=== PATIENT | female | born 1940 | race Caucasian/White ===

== ENCOUNTER → 2016-05-04 | Outpatient (REF) | payer OTHER ==
[2016-05-04 18:12] LABS: BASO # 0.1 K/mm3 (0.0-0.2); BASO % 0.9 % (0.0-1.0); EOS % 0.7 % (0.0-3.0); LARGE UNSTAINED CELL # 0.1 K/mm3 (0.0-0.4); LARGE UNSTAINED CELL % 1.1 % (0.0-4.0); LYMPH # 1.7 K/mm3 (1.5-4.5); LYMPH % 20.6 % (24.0-44.0); MEAN CORPUSCULAR HEMOGLOBIN 29.2 pg (27.0-33.0); MEAN CORPUSCULAR HGB CONC 32.9 g/dl (32.0-36.5); MEAN CORPUSCULAR VOLUME 88.7 fl (80.0-96.0); MONO # 0.3 K/mm3 (0.0-0.8); MONO % 3.3 % (0.0-5.0); NEUTROPHILS # 5.7 K/mm3 (1.8-7.7); NEUTROPHILS % 73.5 % (36.0-66.0); PLATELET COUNT, AUTOMATED 311 k/mm3 (150-450); WHITE BLOOD COUNT 7.7 K/mm3 (4.0-10.0)
[2016-05-04 18:32] LABS: FOLATE 22.3 NG/ML (>5.4)
[2016-05-04 18:44] LABS: ALBUMIN 4.4 GM/DL (3.2-5.2); ALBUMIN/GLOBULIN RATIO 1.29 (1.00-1.93); BILIRUBIN,TOTAL 0.5 MG/DL (0.2-1.0); CALCIUM LEVEL 9.5 MG/DL (8.8-10.2); CREATININE FOR GFR 1.01 MG/DL (0.55-1.02); GLOMERULAR FILTRATION RATE 56.9 (>39); POTASSIUM SERUM 4.2 MEQ/L (3.5-5.1); THYROXINE (T4) 8.8 UG/DL (4.5-12.0); TOTAL PROTEIN 7.8 GM/DL (6.4-8.2)
== END ==
LOC: M SFHCCLAY 11:52
PROVIDERS: ATTEND Family Medicine
DX: R42 Dizziness and giddiness (principal); R20.2 Paresthesia of skin
CPT/HCPCS: 80053; 82607; 82746; 84436; 84443; 85025; G0463

== ENCOUNTER → 2016-09-06 | Outpatient (REF) | payer OTHER ==
[2016-09-06 12:40] LABS: ALBUMIN 3.9 GM/DL (3.2-5.2); ALBUMIN/GLOBULIN RATIO 1.26 (1.00-1.93); ALKALINE PHOSPHATASE 67 U/L (45-117); ALT/SGPT 21 U/L (12-78); ANION GAP 8 MEQ/L (8-16); AST/SGOT 11 U/L (15-37); BILIRUBIN,TOTAL 0.4 MG/DL (0.2-1.0); BLOOD UREA NITROGEN 19 MG/DL (7-18); CALCIUM LEVEL 9.3 MG/DL (8.8-10.2); CARBON DIOXIDE LEVEL 27 MEQ/L (21-32); CHLORIDE LEVEL 104 MEQ/L (98-107); CREATININE FOR GFR 0.74 MG/DL (0.55-1.02); GLOMERULAR FILTRATION RATE > 60.0 (>39); GLUCOSE, FASTING 103 MG/DL (83-110); POTASSIUM SERUM 4.2 MEQ/L (3.5-5.1); SODIUM LEVEL 139 MEQ/L (136-145)
== END ==
LOC: M SFHCCLAY 09:21
PROVIDERS: ATTEND Family Medicine
DX: I10 Essential (primary) hypertension (principal)
CPT/HCPCS: 80053; G0463

== ENCOUNTER → 2016-11-01 | Outpatient (REF) | payer OTHER ==
[~2016-11-01] MED LIST: BENZ0.5T PO; CELE10TA PO; CITA10TA5 PO; FLUC10TA PO; FOLI1TAB4 PO; LOSA100T36; MACR100C43 PO; MIRT15TA3 PO; NITR100C2 PO; NYST50SS SS; OLAN5TAB PO; OXCA150T PO; OXCA300T PO; PATIENT COMMENT; PERP2TA PO; QUET5TAB PO; RISP1TAB3; RISP2TAB3 PO; ROZE8TAB16 PO; SERT-155; THIA100TA PO; TRAZ50TA11; VITMTA PO; ZOLP10TA2
[2016-11-01 11:43] LABS: BASO % 0.9 % (0.0-1.0); EOS # 0.1 K/mm3 (0.0-0.50); EOS % 1.5 % (0.0-3.0); LARGE UNSTAINED CELL # 0.1 K/mm3 (0.0-0.4); LARGE UNSTAINED CELL % 1.3 % (0.0-4.0); LYMPH # 1.2 K/mm3 (1.5-4.5); LYMPH % 19.9 % (24.0-44.0); MEAN CORPUSCULAR HEMOGLOBIN 28.9 pg (27.0-33.0); MEAN CORPUSCULAR HGB CONC 32.2 g/dl (32.0-36.5); MEAN CORPUSCULAR VOLUME 89.7 fl (80.0-96.0); MONO # 0.3 K/mm3 (0.0-0.8); MONO % 4.5 % (0.0-5.0); NEUTROPHILS # 4.2 K/mm3 (1.8-7.7); PLATELET COUNT, AUTOMATED 296 k/mm3 (150-450); RED CELL DISTRIBUTION WIDTH 12.9 % (11.5-14.5); WHITE BLOOD COUNT 5.8 K/mm3 (4.0-10.0)
[2016-11-01 12:12] LABS: ALBUMIN 3.6 GM/DL (3.2-5.2); ALBUMIN/GLOBULIN RATIO 1.24 (1.00-1.93); ALKALINE PHOSPHATASE 55 U/L (45-117); ALT/SGPT 21 U/L (12-78); ANION GAP 8 MEQ/L (8-16); AST/SGOT 10 U/L (15-37); BILIRUBIN,TOTAL 0.4 MG/DL (0.2-1.0); BLOOD UREA NITROGEN 21 MG/DL (7-18); CARBON DIOXIDE LEVEL 26 MEQ/L (21-32); CHLORIDE LEVEL 107 MEQ/L (98-107); CREATININE FOR GFR 0.87 MG/DL (0.55-1.02); GLOMERULAR FILTRATION RATE > 60.0 (>39); GLUCOSE, FASTING 93 MG/DL (83-110); SODIUM LEVEL 141 MEQ/L (136-145); THYROXINE (T4) 7.9 UG/DL (4.5-12.0); TOTAL PROTEIN 6.5 GM/DL (6.4-8.2)
== END ==
LOC: M SFHCCLAY 08:07
PROVIDERS: ATTEND Family Medicine
DX: I10 Essential (primary) hypertension (principal); R63.4 Abnormal weight loss

== ENCOUNTER 2016-11-19 15:03 | Emergency (ER) | payer OTHER ==
[~2016-11-19] VITALS: Ht 162.6 cm; Wt 83.9 kg
[2016-11-19] MEDS ORDERED: LOSA100T36 (15:21)
[2016-11-19] MEDS ORDERED: ROZE8TAB16 PO (15:21)
[2016-11-19] MEDS ORDERED: RISP1TAB3 (15:21)
[2016-11-19] MEDS ORDERED: ZOLP10TA2 (15:21)
[2016-11-19] MEDS ORDERED: SERT-155 (15:21)
[2016-11-19] MEDS ORDERED: TRAZ50TA11 (15:21)
[2016-11-19 15:57] LABS: MEAN CORPUSCULAR HEMOGLOBIN 30.2 pg (27.0-33.0); MEAN CORPUSCULAR HGB CONC 33.8 g/dl (32.0-36.5); MEAN CORPUSCULAR VOLUME 89.4 fl (80.0-96.0); RED CELL DISTRIBUTION WIDTH 12.9 % (11.5-14.5); WHITE BLOOD COUNT 9.9 K/mm3 (4.0-10.0)
[2016-11-19 16:18] LABS: METHADONE URINE NEGATIVE (NEGATIVE)
[2016-11-19 16:28] LABS: ALBUMIN/GLOBULIN RATIO 1.25 (1.00-1.93); ALKALINE PHOSPHATASE 64 U/L (45-117); ALT/SGPT 22 U/L (12-78); ANION GAP 8 MEQ/L (8-16); AST/SGOT 11 U/L (15-37); BILIRUBIN,DIRECT 0.1 MG/DL (0.0-0.2); BILIRUBIN,TOTAL 0.4 MG/DL (0.2-1.0); BLOOD UREA NITROGEN 28 MG/DL (7-18); CALCIUM LEVEL 9.6 MG/DL (8.8-10.2); CARBON DIOXIDE LEVEL 26 MEQ/L (21-32); CHLORIDE LEVEL 102 MEQ/L (98-107); CREATININE FOR GFR 0.91 MG/DL (0.55-1.02); GLOMERULAR FILTRATION RATE > 60.0 (>39); GLUCOSE, FASTING 105 MG/DL (83-110); POTASSIUM SERUM 4.3 MEQ/L (3.5-5.1); SODIUM LEVEL 136 MEQ/L (136-145); TOTAL PROTEIN 7.2 GM/DL (6.4-8.2)
[2016-11-19] MEDS ORDERED: RAMELTEON 8 MG TAB (ROZEREM) PO ONE (21:00)
[2016-11-19] MEDS ORDERED: SERTRALINE HCL 50 MG TAB PO ONE (21:00)
[2016-11-19] MEDS ORDERED: ALPRAZolam 0.25 MG TAB PO ONE (21:00)
[2016-11-19] MEDS ORDERED: RAMELTEON 8 MG TAB (ROZEREM) PO SCH (21:00)
[2016-11-19] MEDS ORDERED: GLYCERIN ADULT SUPP PR ONE (21:15)
--- NOTE | 2016-11-19 23:00 | REPUSA ---
CT of the head Clinical history: Headache. Technique: Multiple axial CT images were obtained through the head without administration of contrast . Findings: The ventricles and sulci are symmetric bilaterally. There is no evidence of acute hemorrhag e or infarct. There is no midline shift, mass effect, or extra-axial fluid collection. The osseous st ructures are unremarkable. The visualized paranasal sinuses and mastoid air cells are clear. Impression: Negative study.
[2016-11-20] MEDS ORDERED: ALPRAZolam 0.25 MG TAB PO ONE (05:15)
[2016-11-20] MEDS ORDERED: CIPROFLOXACIN 500 MG TAB PO ONE ×2 (06:00→20:00)
[2016-11-20] MEDS ORDERED: SERTRALINE HCL 50 MG TAB PO ONE (20:00)
[2016-11-20] MEDS ORDERED: RAMELTEON 8 MG TAB (ROZEREM) PO ONE (20:00)
--- NOTE | 2016-11-20 20:04 | ECGEPIP ---
Stationary ECG Study [facility] - ED Test Date: 2016-11-19 Pat Name: ISMAEL ALEJANDRA Department: Room: - Gender: F Continuous Process [employer]: ambrosio : 1940 Requested By: DYLAN HEBERT Order Number: [id number] Reading MD: Dee Lyle Measurements Intervals [place] Rate: 86 P: 54 NH: 166 QRS: 33 QRSD: 97 T: 17 QT: 353 QTc: 423 Interpretive Statements SINUS RHYTHM PROBABLE INFERIOR MYOCARDIAL INFARCTION, PROBABLY OLD WITH POSTERIOR EXTENSION NO PRIOR FOR COMPARISON Electronically Signed On 11-20-2016 20:03:55 EDT by Dee Lyle
[2016-11-21] MEDS ORDERED: CIPROFLOXACIN 500 MG TAB PO SCH (06:00)
[2016-11-21 12:58] VITALS: BP 156/90
[2017-02-12] MEDS ORDERED: NITR100C2 PO (15:06)
[2017-02-12] MEDS ORDERED: PATIENT COMMENT (15:08)
[2017-02-27] MEDS ORDERED: NYST50SS SS (11:28)
[2017-02-27] MEDS ORDERED: MACR100C43 PO (11:28)
[2017-02-27] MEDS ORDERED: BENZ0.5T PO (11:28)
[2017-02-27] MEDS ORDERED: PERP2TA PO (11:28)
[2017-02-27] MEDS ORDERED: CELE10TA PO (11:28)
[2017-03-04] MEDS ORDERED: FLUC10TA PO (11:44)
[2017-03-04] MEDS ORDERED: OLAN5TAB PO (11:44)
[2017-03-04] MEDS ORDERED: OXCA150T PO (11:44)
[2017-03-05] MEDS ORDERED: NYST50SS SS (16:11)
== END 2016-11-21 13:00 ==
LOC: M ED 15:03
DX: R45.851 Suicidal ideations (principal); F41.9 Anxiety disorder, unspecified; I10 Essential (primary) hypertension; Z90.79 Acquired absence of other genital organ(s); Z79.899 Other long term (current) drug therapy; Z88.0 Allergy status to penicillin; Z91.040 Latex allergy status
CPT/HCPCS: 36415; 70450; 80048; 80076; 80307; 81001; 84443; 85027; 87086; 93005; 99285; G0463; G0480

== ENCOUNTER → 2016-12-17 | Outpatient (REF) | payer OTHER | LOC: M SFHCCLAY 11:29 | PROVIDERS: ATTEND Family Medicine | DX: R82.90 Unspecified abnormal findings in urine (principal) ==

== ENCOUNTER 2017-01-13 08:05 | Inpatient (IN) | payer OTHER, MEDICARE ==
[~2017-01-13] VITALS: Ht 162.6 cm; Wt 79.0 kg
[~2017-01-13 08:05] MED LIST changes: -BENZ0.5T PO; -CELE10TA PO; -CITA10TA5 PO; -FLUC10TA PO; -FOLI1TAB4 PO; -MACR100C43 PO; -MIRT15TA3 PO; -NITR100C2 PO; -NYST50SS SS; -OLAN5TAB PO; -OXCA150T PO; -OXCA300T PO; -PATIENT COMMENT; -PERP2TA PO; -QUET5TAB PO; -RISP2TAB3 PO; -THIA100TA PO; -VITMTA PO
[2017-01-13] MEDS ORDERED: NS 1,000 ML IV SCH (08:18)
--- NOTE | 2017-01-13 08:57 | REP ---
CT brain without contrast: 01/13/2017. Clinical history: Altered mental status. Comparison: 11/19/2016. Technique. Soft-tissue and bone windows are obtained for each slice level. Findings: Lateral ventricles are midline. They are symmetric and mildly dilated proportionate to the diffuse cerebral atrophy. All of that is age appropriate and unchanged. Third and fourth ventricles are also appropriate for degree of mild atrophy. Basal ganglia are symmetric and grossly normal. There is some slight heterogeneity to the white matter bilaterally that may reflect some small vessel white matter change. The cortical stripe shows atrophy but is otherwise preserved. I do not see a vascular territory infarct, intracranial hemorrhage, mass, mass effect or edema. Brainstem and cerebellum show no acute finding. Basal cisterns intact. Mastoids and visualized sinuses are clear. Skull base and calvarium show no fracture or focal lesion. Impression: 1. Some mild cerebral atrophy with proportionate ventriculomegaly, unchanged. 2. Small vessel white matter changes, chronic and stable. 3. No acute infarct, hemorrhage, mass, mass effect or edema. Signed by Jose Del Cid MD 01/13/2017 10:23 A
[2017-01-13] MEDS: MULTIVITAMINS/MINERALS THERAP 1 TAB PO SCH (09:00)
[2017-01-13] MEDS: SENOKOT S TAB PO SCH ×2 (09:00→21:00)
[2017-01-13] MEDS: FOLIC ACID 1 MG TAB PO SCH (09:00)
[2017-01-13] MEDS: diphenhydrAMINE 50 MG CAP PO SCH ×2 (09:00→15:58)
--- NOTE | 2017-01-13 09:04 | REP ---
Clinical: Altered mental status . Comparison: None . Findings: The mediastinum and cardiac silhouette are stable and within normal limits for portable technique. The lung perez are clear without acute consolidation, effusion, or pneumothorax. Skeletal structures are intact. Impression: No acute cardiopulmonary process appreciated. Signed by Austin Butler MD 01/13/2017 08:55 A
[2017-01-13 09:08] LABS: VENOUS O2 SATURATION 58.8 % (60.0-80.0); VENOUS PARTIAL PRESSURE CO2 44.2 mmHg (38.0-50.0); VENOUS PARTIAL PRESSURE O2 36.1 mmHg (30.0-50.0); VENOUS STANDARD HCO3 19.5 MEQ/L; VENOUS TOTAL CO2 22.7 MEQ/L (24.0-28.0)
[2017-01-13 09:13] LABS: BASO % 0.1 % (0.0-1.0); EOS % 0.3 % (0.0-3.0); LARGE UNSTAINED CELL # 0.1 K/mm3 (0.0-0.4); LYMPH % 8.5 % (24.0-44.0); MEAN CORPUSCULAR HEMOGLOBIN 29.4 pg (27.0-33.0); MEAN CORPUSCULAR HGB CONC 33.3 g/dl (32.0-36.5); MEAN CORPUSCULAR VOLUME 88.3 fl (80.0-96.0); MONO # 0.5 K/mm3 (0.0-0.8); MONO % 4.1 % (0.0-5.0); NEUTROPHILS # 10.5 K/mm3 (1.8-7.7); PLATELET COUNT, AUTOMATED 303 k/mm3 (150-450); RED CELL DISTRIBUTION WIDTH 12.8 % (11.5-14.5); WHITE BLOOD COUNT 12.2 K/mm3 (4.0-10.0)
[2017-01-13] MEDS ORDERED: OXCA300T PO (09:29)
[2017-01-13] MEDS ORDERED: MIRT15TA3 PO (09:29)
[2017-01-13] MEDS ORDERED: RISP2TAB3 PO (09:29)
[2017-01-13 09:49] LABS: ALBUMIN 4.4 GM/DL (3.2-5.2); ALBUMIN/GLOBULIN RATIO 1.29 (1.00-1.93); ALKALINE PHOSPHATASE 58 U/L (45-117); ALT/SGPT 35 U/L (12-78); ANION GAP 13 MEQ/L (8-16); AST/SGOT 41 U/L (15-37); BILIRUBIN,DIRECT 0.2 MG/DL (0.0-0.2); BILIRUBIN,TOTAL 0.6 MG/DL (0.2-1.0); BLOOD UREA NITROGEN 55 MG/DL (7-18); CALCIUM LEVEL 10.6 MG/DL (8.8-10.2); CARBON DIOXIDE LEVEL 25 MEQ/L (21-32); CHLORIDE LEVEL 110 MEQ/L (98-107); CREATININE FOR GFR 1.62 MG/DL (0.55-1.02); GLUCOSE, FASTING 117 MG/DL (83-110); POTASSIUM SERUM 4.3 MEQ/L (3.5-5.1); SODIUM LEVEL 148 MEQ/L (136-145); TOTAL PROTEIN 7.8 GM/DL (6.4-8.2)
[2017-01-13 09:57] LABS: METHADONE URINE NEGATIVE (NEGATIVE)
[2017-01-13] MEDS ORDERED: PATIENT COMMENT (09:58)
[2017-01-13] MEDS ORDERED: LevoFLOXacin IV 750 MG in APPROPRIATE DILUENT 1 EA IV ONE (10:00)
[2017-01-13] MEDS ORDERED: NS 1,000 ML IV ONE ×2 (10:00→10:30)
[2017-01-13] MEDS ORDERED: NS 500 ML IV ONE (10:30)
[2017-01-13 10:38] LABS: OSMOLALITY SERUM 330 MOSM/KG (280-301)
--- NOTE | 2017-01-13 11:02 | REP ---
Clinical: Flank pain. Findings: Lung bases demonstrate chronic-appearing interstitial changes. Liver, spleen, pancreas, gallbladder, bilateral adrenal glands and kidneys are normal for noncontrast evaluation. No perinephric stranding, hydroureteronephrosis, intrarenal or obstructing ureteral calculi are identified. Incidental note is made of a 1.3 cm hepatic hypodensity likely representing cyst. The enteric system is without obstruction or acute inflammatory process. Colonic and sigmoid diverticula noted without acute diverticulitis. Moderate fecal stasis and possible impaction at the rectum which is distended to 6.6 cm. Pelvis demonstrates normal bladder and evidence for prior hysterectomy no ascites. No free air. No adenopathy or mass lesion identified. Surrounding musculoskeletal structures demonstrate age-related degenerative changes. Impression: 1. Normal noncontrast appearance of the kidneys and urinary tract system. No evidence for hydronephrosis and no definite evidence for pyelonephritis. 2. Sigmoid diverticula without acute diverticulitis. 3. Possible mild fecal impaction at the rectum which is distended to 6.6 cm. Signed by Austin Butler MD 01/13/2017 10:53 A
[2017-01-13] MEDS ORDERED: LevoFLOXacin IV 500 MG in APPROPRIATE DILUENT 1 EA IV SCH (13:15)
[2017-01-13] MEDS ORDERED: THIAMINE HCL 200 MG/2 ML VIAL (J3411) IM ONE (13:30)
[2017-01-13] MEDS ORDERED: ONDANSETRON 4MG/2ML VIAL (J2405) IV PRN (13:30)
[2017-01-13] MEDS ORDERED: ACETAMINOPHEN TAB 650MG DOSE (2X325MG) PO PRN (13:30)
[2017-01-13] MEDS ORDERED: FLEET ENEMA PR ONE (13:30)
[2017-01-13] MEDS ORDERED: HALOPERIDOL 5 MG/ML VIAL (J1630) IV PRN (14:00)
[2017-01-13] MEDS ORDERED: HALOPERIDOL 5 MG/ML VIAL (J1630) IM SCH (14:00)
--- NOTE | 2017-01-13 14:58 | HPE ---
DATE OF ADMISSION: 01/13/2017 PRIMARY CARE PROVIDER: Hong Michel MD PSYCHIATRIST: Dr. Read CONSULTED BY: Dr. Trinidad CHIEF COMPLAINT: Confusion and increasing weakness. HISTORY OF PRESENT ILLNESS: This is a 76-year-old female patient with underlying medical history of borderline personality disorder, bipolar disorder, hypertension, and dyslipidemia. The patient was brought to the hospital by her for progressively worsening confusion. As per the , since one week ago, the patient had stopped taking all her psychiatric medications, Risperdal, Trileptal and mirtazapine and the patient has been getting progressively more confused. Furthermore, the patient about 2-3 days ago stopped taking oral food and fluids altogether with progressively worsening weakness and the patient used to be ambulatory a lot, but for the past two days the patient has been to weak to ambulate up the stairs or move around. Subsequently, the patient was brought to the emergency room. Initially seeing the patient without the 's presence, the patient does not give any history. The patient follows simple commands, knows her name, but refuses to answer any additional questions. Denies any chest pain, pressure or discomfort. History was significantly limited, but upon the entering, the patient started screaming that she did not tell the provider any information. Furthermore, she insisted the leave the room. She stated that she does not want to see him and she stated that it is all about him, not about her. The stated that he is also concerned that she might have a urinary tract infection. The patient had similar symptoms prior but not to this extent due to a urinary tract infection. Furthermore, the patient at baseline has some essential tremors, but for the past 2-3 days it has been worsened, especially when she is agitated and anxious, she starts shaking, bilateral upper extremities. No history of seizures reported. No focal neurological weakness. ALLERGIES: 1. LATEX. 2. PENICILLINS. 3. ANGIOTENSION-CONVERTING ENZYME (ULISSES) INHIBITORS. 4. STATINS. PAST MEDICAL HISTORY: Borderline personality disorder. Bipolar disorder. Hypertension. Dyslipidemia. Eczema. PAST SURGICAL HISTORY: Total hysterectomy. Left chest lesion excision. Colonoscopy. FAMILY HISTORY: Father with myocardial infarction at age 79 and hypertension. Mother was diagnosed with stroke at age 85. SOCIAL HISTORY: Lives at home with . Nonsmoker. Does not drink alcoholic beverages. REVIEW OF SYSTEMS: Unobtainable given the patient's lack of cooperation. HOME MEDICATIONS: - oxcarbazepine 300 mg by mouth at bedtime - mirtazapine 15 mg by mouth at bedtime - Risperdal 2 mg by mouth at bedtime PHYSICAL EXAMINATION: VITAL SIGNS: Temperature 98.8, pulse 100, respirations 16, blood pressure 127/56, pulse oximetry 97%. GENERAL: Patient arousable, in no acute distress. HEENT: Normocephalic, atraumatic. PULMONARY: Bilaterally clear to auscultation. CARDIAC: Regular. Mild tachycardia. S1 and S2. ABDOMEN: Positive bowel sounds. Soft, diffusely tender, but no rebound and no guarding. EXTREMITIES: No clubbing, cyanosis, or edema. NEUROLOGIC: Able to move all four extremities. Cranial nerves II through XII grossly intact, but when agitated the patient has bilateral upper extremity shaking tremors. EKG shows sinus rhythm at 95. T-wave inversion in V1. No change from previous. LABORATORIES: WBC 12.2, hemoglobin and hematocrit 14.2/42.7, platelets 103. Chemistries: Sodium 148, potassium 4.3, chloride 110, bicarb 25, BUN 55, creatinine 1.6, lactic acid 4.1. ASSESSMENT/PLAN: This is a 76-year-old female patient with underlying medical history of bipolar disorder, borderline personality disorder, hypertension, and dyslipidemia admitted with confusion, generalized weakness, and altered mental status. PROBLEMS: 1. Altered mental status. Possible etiology patient likely psychotic based on history of present illness, possible inciting event suffering a UTI versus noncompliance with medications. Treatment for infectious etiology as below. Case discussed with Dr. Trinidad who placed the patient on Haldol 2 mg intramuscular (IM) every 6 hours standing along with Benadryl oral 50 mg by mouth twice a day as per Dr. Trinidad. Psychiatrist will evaluate the patient. Will attempt to resume home oral medications if the patient tolerates. Further management as per psychiatry. 2. Sepsis. Patient with leukocytosis and tachycardia, possibly secondary to a UTI. Followup urine culture, blood culture, C-reactive protein. Followup UA. Patient on Levaquin for now. 3. Lactic acidosis secondary to infection versus dehydration. IV fluids for hydration. Repeat lactic acid. 4. Rhabdomyolysis secondary to dehydration. Will give IV hydration. Followup total CKs. EKG is appreciated. 5. Acute kidney injury (TOMMY) secondary to dehydration and active infection. IV fluids. Followup CT scan appreciated with no obstructive process. Followup kidney functions. 6. Constipation. Bowel regimen was prescribed. 7. Deep vein thrombosis (DVT) prophylaxis. Lovenox subcu. DISPOSITION: Pending clinical improvement and psychiatric followup.
[2017-01-13 16:00] VITALS: BP 155/67
[2017-01-13] MEDS: MEROPENEM INJ 500 MG in D5W MINI-BAG PLUS 100 ML IV SCH (16:01)
[2017-01-13] MEDS: LR 1,000 ML IV SCH (16:01)
[2017-01-13] MEDS: BISACODYL 10 MG SUPP PR SCH (16:01)
[2017-01-13] MEDS: ENOXAPARIN 30 MG/0.3 ML SYR (J1650) SC SCH (16:02)
[2017-01-13 18:11] LABS: OSMOLALITY URINE 770 MOSM/KG (500-800)
[2017-01-13 20:10] VITALS: BP 142/80
[2017-01-13] MEDS: OXcarbazepine 300 MG TAB PO SCH (21:00)
[2017-01-13] MEDS: MIRTAZAPINE 15 MG TAB PO SCH (21:00)
[2017-01-13] MEDS: risperiDONE 2 MG TAB PO SCH (21:00)
[2017-01-13] MEDS: HALOPERIDOL 5 MG/ML VIAL (J1630) IM SCH (21:02)
[2017-01-13] MEDS ORDERED: LORazepam 2 MG/ML VIAL (J2060) IV ONE (22:15)
[2017-01-14] VITALS: BP 123/61
[2017-01-14] MEDS: LR 1,000 ML IV SCH (03:36)
[2017-01-14 04:00] VITALS: BP 118/64
[2017-01-14] MEDS: HALOPERIDOL 5 MG/ML VIAL (J1630) IM SCH ×4 (04:50→21:40)
[2017-01-14] MEDS: MEROPENEM INJ 500 MG in D5W MINI-BAG PLUS 100 ML IV SCH ×3 (05:13→23:33)
[2017-01-14 05:57] LABS: MEAN CORPUSCULAR HGB CONC 32.5 g/dl (32.0-36.5); MEAN CORPUSCULAR VOLUME 89.2 fl (80.0-96.0); RED CELL DISTRIBUTION WIDTH 12.7 % (11.5-14.5); WHITE BLOOD COUNT 9.4 K/mm3 (4.0-10.0)
[2017-01-14 06:15] LABS: ALKALINE PHOSPHATASE 44 U/L (45-117); ALT/SGPT 33 U/L (12-78); ANION GAP 8 MEQ/L (8-16); AST/SGOT 40 U/L (15-37); BILIRUBIN,TOTAL 0.7 MG/DL (0.2-1.0); BLOOD UREA NITROGEN 27 MG/DL (7-18); CARBON DIOXIDE LEVEL 27 MEQ/L (21-32); CHLORIDE LEVEL 116 MEQ/L (98-107); CREATININE FOR GFR 0.66 MG/DL (0.55-1.02); GLUCOSE, FASTING 86 MG/DL (83-110); MAGNESIUM LEVEL 1.8 MG/DL (1.8-2.4); POTASSIUM SERUM 3.8 MEQ/L (3.5-5.1); SODIUM LEVEL 151 MEQ/L (136-145)
[2017-01-14 06:36] LABS: ALBUMIN/GLOBULIN RATIO 1.15 (1.00-1.93)
[2017-01-14 06:37] LABS: GLOMERULAR FILTRATION RATE > 60.0 (>39); TOTAL PROTEIN 5.6 GM/DL (6.4-8.2)
[2017-01-14 07:44] VITALS: BP 107/63
--- NOTE | 2017-01-14 07:48 | ECGEPIP ---
Stationary ECG Study [facility] - ED Test Date: 2017-01-13 Pat Name: ISMAEL ALEJANDRA Department: Room: - Gender: F Reading Instructor: DEMETRIUS : 1940 Requested By: Dee Lyle Order Number: [id number] Reading MD: Dee Lyle Measurements Intervals [place] Rate: 95 P: 53 HI: 148 QRS: 20 QRSD: 101 T: 74 QT: 289 QTc: 364 Interpretive Statements SINUS RHYTHM INFERIOR MYOCARDIAL INFARCTION, PROBABLY OLD WITH POSTERIOR EXTENSION NSTTW ABNORMALITY BASELINE ARTIFACT LIMITS INTERPRETATION INCREASED RATE 11/19/16 Electronically Signed On 01-14-2017 7:47:59 EDT by Dee Lyle
[2017-01-14] MEDS: NS 0.45% 1,000 ML IV SCH ×2 (08:46→18:43)
[2017-01-14] MEDS: BISACODYL 10 MG SUPP PR SCH (09:00)
[2017-01-14] MEDS: SENOKOT S TAB PO SCH ×2 (09:00→21:00)
[2017-01-14] MEDS: MULTIVITAMINS/MINERALS THERAP 1 TAB PO SCH ×2 (09:03→09:07)
[2017-01-14] MEDS: THIAMINE 100 MG TAB PO SCH ×2 (09:03→09:07)
[2017-01-14] MEDS: FOLIC ACID 1 MG TAB PO SCH ×2 (09:04→09:07)
[2017-01-14] MEDS: diphenhydrAMINE 50 MG CAP PO SCH (09:04)
[2017-01-14] MEDS: ENOXAPARIN 30 MG/0.3 ML SYR (J1650) SC SCH ×2 (09:04→09:08)
[2017-01-14] MEDS ORDERED: LevoFLOXacin IV 250 MG in APPROPRIATE DILUENT 1 EA IV SCH (10:00)
[2017-01-14] MEDS ORDERED: diphenhydrAMINE INJ 50MG/ML VIAL (J1200) IM PRN (10:00)
[2017-01-14 12:00] VITALS: BP 124/76
--- NOTE | 2017-01-14 15:15 | IPNPDOC ---
Date Seen The patient was seen on 01/14/17. Progress Note SUBJECTIVE: Patient is a 76-year-old female with altered mental status. Patient is evaluated at bedside this morning. She is alert and able to provide her name, date of , current year, POTUS, general location. However, she is unable to provide accurate information regarding her specific location or the reason for her hospitalization. Her is bedside during evaluation. He seems to imply that she is doing and looking better than when she first was brought to the hospital. Patient has a sitter placed secondary to severe agitation. Verbally discussed case with psychiatry who suggest that patient is delirious and recommend continued treatment with IM Haldol scheduled until delirium subsides. Patient has not been taking her oral medications - Remeron, Trileptal, Risperdal - but psychiatry OBJECTIVE PHYSICAL EXAMINATION: VITAL SIGNS: Please see below. GENERAL: Well nourished, well developed female, alert and conversant, confused, agitated HEENT: Atraumatic, normocephalic, PERRL, EOMI, oral mucosa is somewhat dry, nasal septum appears midline, nares are patent CARDIOVASCULAR: Regular rate and rhythm, normal S1 and S2, no murmur, rub, click RESPIRATORY: Clear to auscultation bilaterally, adequate inspiratory and expiratory airway excursion, no wheeze, rhonchi, crackles ABDOMINAL: Soft, non-tender, non-distended, bowel sounds appreciated EXTREMITIES: Peripheral pulses appreciated in upper and lower extremities bilaterally, equal, symmetrical, +2/4 NEUROLOGICAL: CN II-XII appear grossly intact PSYCHOLOGICAL: Confused, agitated, alert LABORATORY DATA: Please see below. MICROBIOLOGY: Please see below. DVT prophylaxis ordered?: Lovenox 30mg SC daily. ASSESSMENT AND PLAN: This is a 76-year-old female with altered mental status likely secondary to underlying medical conditions and delirium. PROBLEMS: 1. Altered mental status: Psychiatry consulted. Likely delirium-related. Refusing current anti-psychotic, anti-depressant, and anticonvulsant. Continue with IM Haldol scheduled. Urine and blood cultures are negative. Leukocytosis has improved. Lactic acidosis has improved. Continue with Meropenem for the time-being. Patient also receiving Benadryl IV. Obtaining EEG when patient clinically able to participate. 2. Hypernatremia: FeNa 0.2% indicationg a pre-renal cause. Adjusted IVF to 2NS at 100 mLs/hr. Monitor BMP. 3. Rhabdomyolysis: CPK is improving with IVF resuscitation. DISPOSITION: EEG on Tuesday if patient is able to comply. Psychiatry consulted. ADINA Gallegos scheduled. VS, I&O, 24H, Fishbone Vital Signs/I&O Vital Signs Date Time Temp Pulse Resp B/P (MAP) Pulse Ox O2 Delivery O2 Flow Rate FiO2 01/14/17 12:00 98.8 88 20 124/76 (92) 96 Room Air I&O- Last 24 Hours up to 6 AM 01/14/17 06:00 Intake Total 3800 ml Output Total 951 ml Balance 2849 ml Laboratory Data 24H LABS Laboratory Tests 2 01/13/17 17:40: Urine Appearance HAZY, Urine Color YELLOW, Urine pH 5.0, Urine Specific [place] 1.020, Urine Protein NEGATIVE, Urine Glucose (UA) NEGATIVE, Urine Ketones 1+H, Urine Urobilinogen 0.2, Urine Bilirubin NEGATIVE, Urine Leukocyte Esterase NEGATIVE, Urine Blood NEGATIVE, Urine Nitrite NEGATIVE, Urine WBC (Auto) 2, Urine RBC (Auto) 2, Urine Hyaline Casts (Auto) 9, Urine Bacteria (Auto) NEGATIVE , Urine Squamous Epithelial Cells 0, Urine Mucus (Auto) SMALL, Urine Sperm (Auto ) , Urine Random Osmolality 770, Urine Random Creatinine 145.0, Urine Random Total Protein 29.6H, Urine Random Sodium 62, Urine Random Potassium 61.7, Urine Random Chloride 74 01/14/17 05:38: Anion Gap 8, Glomerular Filtration Rate > 60.0, Blood Urea Nitrogen 27#H, Creatinine 0.66#, Sodium Level 151H, Potassium Level 3.8, Chloride Level 116H, Carbon Dioxide Level 27, Calcium Level 8.0#L, Aspartate Amino Transf (AST/SGOT) 40H, Alanine Aminotransferase (ALT/SGPT) 33, Total Creatine Kinase 661H, Alkaline Phosphatase 44L, Total Bilirubin 0.7, Total Protein 5.6#L, Albumin 3.0# L, Magnesium Level 1.8, Creatine Kinase MB 9.7H, Creatine Kinase MB Relative Index 1.46, Troponin I 0.08, C-Reactive Protein, Quantitative 1.37H, Albumin/ Globulin Ratio 1.15 01/14/17 13:00: Total Creatine Kinase 596H, Creatine Kinase MB 8.4H, Creatine Kinase MB Relative Index 1.40, Troponin I 0.05# CBC/BMP Laboratory Tests 01/14/17 05:38 Red Blood Count 4.11, Mean Corpuscular Volume 89.2, Mean Corpuscular Hemoglobin 29.0, Mean Corpuscular Hemoglobin Concent 32.5, Red Cell Distribution Width 12.7 , Calcium Level 8.0 #L, Aspartate Amino Transf (AST/SGOT) 40 H, Alanine Aminotransferase (ALT/SGPT) 33, Total Creatine Kinase 661 H, Alkaline Phosphatase 44 L, Total Bilirubin 0.7, Total Protein 5.6 #L, Albumin 3.0 #L Microbiology Microbiology 01/13/17 Blood Culture - Preliminary, Resulted No growth after 24 hours . All specim... 01/13/17 Blood Culture - Preliminary, Resulted No growth after 24 hours . All specim... 01/13/17 Urine Culture - Final, Complete GME ATTESTATION GME ATTESTATION My preceptor for this patient encounter was physically present in the building during the encounter and was fully available. As needed, all aspects of the patient interview, examination, medical decision making process, and medical care plan development were reviewed and approved by the preceptor. Preceptor is aware and concurs with the plan as stated in the body of this note and will attest to such by his/her cosignature. ATTENDING NOTE I have both independently examined this patient as well as reviewed the note. I have discussed in detail with the resident the findings and plan of treatment as documented in the residents note. I will continue to follow the patient and offer further guidance to the patients care as necessary during this hospital stay. ANJELICA Vila MD Jan 14, 2017 14:50 EVON HUNTER MD Jan 31, 2017 18:47
--- NOTE | 2017-01-14 15:47 | MHIPNPDOC ---
[facility] Progress Note Progress Note DATE OF SERVICE: 01/14/17 HISTORY: HISTORY OF PRESENT ILLNESS: This is a 76-year-old female patient with underlying medical history of borderline personality disorder, bipolar disorder , hypertension, and dyslipidemia. The patient was brought to the hospital by her for progressively worsening confusion. As per the , since one week ago, the patient had stopped taking all her psychiatric medications, Risperdal, Trileptal and mirtazapine and the patient has been getting progressively more confused. The patient was seen today but Dr. Alvarado consulted me over the phone yesterday, when she was still at the ED and this program writer recommended him to start her on Haldol PO but if she refused PO, she could take it IM. VITAL SIGNS: See below. NEW TEST RESULTS: CURRENT MEDICATIONS: See below. MENTAL STATUS EXAMINATION: Patient is a 76-year old female, who is alert, with her eyes closed, uncooperative, laying in bed Speech: There's poverty of speech and when she speaks, her statements are irrational, incoherent. She only said: "I bad, I bad, I bad" and then, "this has to stop, this has to stop, this has to stop". At this time she started moving her hands intentionally,flapping them. Language skills are Unable to assess Thought processes including: Irrational, incoherent Thought content: Unable to assess. Patient is awke but uncooperative and incoherent. Abstract reasoning, and computation: Unable to assess. Description of associations: Not good. Patient only said repeatedly "I'm bad, I' m bad, I'm bad" and immediately she started saying "This has to stop, this has to stop, this has to stop". There is no association between those statements. Description of abnormal or psychotic thoughts: patient doesn't seem to be delusional, she doesn't seem to be responding to internal stimuli. She seems to close her eyes intentionally and when she moves her hands and starts saying "I' m bad", she looks at me with the corner or her eye as if she wants to know what my reaction is. Judgment: Poor Insight: Poor Orientation: Unable to assess Recent and remote memory: Unable to assess Attention span and concentration: Poor Language: Unable to assess. Fund of knowledge: Unable to assess Mood: Irritable. Affect: congruent to mood DIAGNOSES: 1. Delirium secondary to medical condition 2. R/O Dementia 3. Borderline Personality Disorder by history 4. bipolar Disorder by history ASSESSMENT: Patient doesn't fulfill criteria for bipolar Disorder, neither for schizophrenia. Usually in the elderly, bipolar disorder tends to disappear, usually around the 60's. She seems to be manipulating, and with that being said , it doesn't mean she is not sick, but she is alert, only refusing to cooperate. There's very little history about her and she seems to have been medicated a long time ago with Risperdal, Mirtazapine and Trileptal. Those medications can't be administered IM or IV, since patient is refusing oral medications. She should continue with Haldol 2 mgs. Q4h instead of Haldol 2 mgs. Q6H. This will help her with the psychosis. is the preferred medication for patients who are delirious because oftentimes they refuse to take oral medications. It will help her with her psychiatric illnesses too. she has had a CT scan and it shows atrophy but is not major. According to history, when she was seen at the ED she started yelling at , telling him don't tell him anything". MANAGEMENT PLAN: continue with: 1. Haldol 2 mgs. PO/IM Q4H 2. Benadryl 50 mgs. Q12H PRN for extrapyramidal side effects. 3. Please don't give her benzodiazepines, she will become more confused. TIME SPENT: 40 minutes. Vital Signs Vital Signs Date Time Temp Pulse Resp B/P (MAP) Pulse Ox O2 Delivery O2 Flow Rate FiO2 01/14/17 12:00 98.8 88 20 124/76 (92) 96 Room Air Laboratory Data 24H Labs Laboratory Tests 2 01/13/17 17:40: Urine Appearance HAZY, Urine Color YELLOW, Urine pH 5.0, Urine Specific [place] 1.020, Urine Protein NEGATIVE, Urine Glucose (UA) NEGATIVE, Urine Ketones 1+H, Urine Urobilinogen 0.2, Urine Bilirubin NEGATIVE, Urine Leukocyte Esterase NEGATIVE, Urine Blood NEGATIVE, Urine Nitrite NEGATIVE, Urine WBC (Auto) 2, Urine RBC (Auto) 2, Urine Hyaline Casts (Auto) 9, Urine Bacteria (Auto) NEGATIVE , Urine Squamous Epithelial Cells 0, Urine Mucus (Auto) SMALL, Urine Sperm (Auto ) , Urine Random Osmolality 770, Urine Random Creatinine 145.0, Urine Random Total Protein 29.6H, Urine Random Sodium 62, Urine Random Potassium 61.7, Urine Random Chloride 74 01/14/17 05:38: Anion Gap 8, Glomerular Filtration Rate > 60.0, Blood Urea Nitrogen 27#H, Creatinine 0.66#, Sodium Level 151H, Potassium Level 3.8, Chloride Level 116H, Carbon Dioxide Level 27, Calcium Level 8.0#L, Aspartate Amino Transf (AST/SGOT) 40H, Alanine Aminotransferase (ALT/SGPT) 33, Total Creatine Kinase 661H, Alkaline Phosphatase 44L, Total Bilirubin 0.7, Total Protein 5.6#L, Albumin 3.0# L, Magnesium Level 1.8, Creatine Kinase MB 9.7H, Creatine Kinase MB Relative Index 1.46, Troponin I 0.08, C-Reactive Protein, Quantitative 1.37H, Albumin/ Globulin Ratio 1.15 01/14/17 13:00: Total Creatine Kinase 596H, Creatine Kinase MB 8.4H, Creatine Kinase MB Relative Index 1.40, Troponin I 0.05# CBC/BMP Laboratory Tests 01/14/17 05:38 Red Blood Count 4.11, Mean Corpuscular Volume 89.2, Mean Corpuscular Hemoglobin 29.0, Mean Corpuscular Hemoglobin Concent 32.5, Red Cell Distribution Width 12.7 , Calcium Level 8.0 #L, Aspartate Amino Transf (AST/SGOT) 40 H, Alanine Aminotransferase (ALT/SGPT) 33, Total Creatine Kinase 661 H, Alkaline Phosphatase 44 L, Total Bilirubin 0.7, Total Protein 5.6 #L, Albumin 3.0 #L Current Medications Current Medications Acetaminophen (Tylenol Tab) 650 mg Q4HP PRN PO MILD PAIN OR FEVER; Start at 13:30; Stop 02/12/17 at 13:29 Bisacodyl (Dulcolax Suppository) 10 mg DAILY WA Last administered on 01/13/17t 16:01; Start 01/13/17 at 09:00; Stop 02/12/17 at 08:59 Diphenhydramine HCl (Benadryl) 25 mg Q6HP PRN IM AGITATION; Start 01/14/17 at 10:00; Stop 02/13/17 at 09:59 Diphenhydramine HCl (Benadryl) 50 mg Q12H PO Last administered on 01/14/17 09: 04; Start 01/13/17 at 09:00; Stop 01/14/17 at 10:02; Status DC Enoxaparin Sodium (Lovenox) 30 mg DAILY SC Last administered on 01/13/17 16:02 ; Start 01/13/17 at 09:00; Stop 01/18/17 at 08:59 Folic Acid (Folic Acid) 1 mg DAILY PO ; Start 01/13/17 at 09:00; Stop 02/12/17 at 08:59 Haloperidol (Haldol) 1 mg Q6HP PRN IV AGITATION; Start 01/13/17 at 14:00; Stop 01/13/17 at 14:00; Status DC Haloperidol (Haldol) 2 mg Q6H IM Last administered on 01/13/17 16:02; Start at 14:00; Stop 01/13/17 at 19:33; Status DC Haloperidol (Haldol) 2 mg Q6H IM Last administered on 01/14/17 09:03; Start at 22:00; Stop 02/12/17 at 21:59 Home Med (Med Rec Complete!) ASDIRECTED XX ; Start 01/13/17 at 10:00; Stop at 10:01; Status DC Lactated Ringer's 1,000 ml @ 100 mls/hr Q10H IV Last administered on 03:36; Start 01/13/17 at 13:15; Stop 01/14/17 at 08:02; Status DC Levofloxacin 250 mg/IV Miscellaneous Supplies 50 ml @ 50 mls/hr Q24H IV ; Start 01/14/17 at 10:00; Stop 01/14/17 at 10:00; Status DC Levofloxacin 500 mg/IV Miscellaneous Supplies 100 ml @ 100 mls/hr Q24H IV ; Start 01/13/17 at 13:15; Stop 01/13/17 at 13:32; Status DC Meropenem 500 mg/ Dextrose 100 ml @ 200 mls/hr Q12H IV Last administered on 05:13; Start 01/13/17 at 16:00; Stop 01/14/17 at 14:44; Status DC Meropenem 500 mg/ Dextrose 100 ml @ 200 mls/hr Q8H IV ; Start 01/14/17 at 16:00 ; Stop 01/20/17 at 15:59 Mirtazapine (Remeron) 15 mg QHS PO ; Start 01/13/17 at 21:00; Stop 02/12/17 at 20:59 Multivitamins (Theragram-M) 1 tab DAILY PO ; Start 01/13/17 at 09:00; Stop at 08:59 Ondansetron HCl (ZOFRAN INJection) 4 mg Q6HP PRN IV NAUSEA OR VOMITING; Start 01/13/17 at 13:30; Stop 02/12/17 at 13:29 Oxcarbazepine (Trileptal) 300 mg QHS PO ; Start 01/13/17 at 21:00; Stop at 20:59 Risperidone (RisperDAL) 2 mg QHS PO ; Start 01/13/17 at 21:00; Stop 02/12/17 at 20:59 Senna/Docusate Sodium (Senokot S) 2 tab BID PO ; Start 01/13/17 at 09:00; Stop 02/12/17 at 08:59 Sodium Chloride 1,000 ml @ 100 mls/hr Q10H IV ; Start 01/13/17 at 08:18; Stop 01/13/17 at 14:45; Status DC Sodium Chloride 1,000 ml @ 100 mls/hr Q10H IV Last administered on 01/14/17t 08:46; Start 01/14/17 at 08:00; Stop 02/13/17 at 07:59 Thiamine HCl (Thiamine HCl) 100 mg DAILY PO ; Start 01/14/17 at 09:00; Stop at 08:59 Allergies Coded Allergies: Penicillins (Verified Allergy, Severe, swelling in throat, 11/19/16) Latex (Verified Adverse Reaction, Mild, itching, 01/13/17) ANNY GRAVES MD Jan 14, 2017 15:47
[2017-01-14 16:00] VITALS: BP 136/76
[2017-01-14] MEDS: MIRTAZAPINE 15 MG TAB PO SCH (21:00)
[2017-01-14] MEDS: OXcarbazepine 300 MG TAB PO SCH (21:00)
[2017-01-14] MEDS: risperiDONE 2 MG TAB PO SCH (21:00)
[2017-01-14 21:12] VITALS: BP 133/66
[2017-01-15 01:06] VITALS: BP 125/73
[2017-01-15] MEDS: HALOPERIDOL 5 MG/ML VIAL (J1630) IM SCH ×5 (04:00→21:32)
[2017-01-15] MEDS: NS 0.45% 1,000 ML IV SCH ×3 (04:00→23:49)
[2017-01-15 04:41] VITALS: BP 153/72
[2017-01-15 08:00] VITALS: BP 160/80
[2017-01-15] MEDS: THIAMINE 100 MG TAB PO SCH (08:26)
[2017-01-15] MEDS: FOLIC ACID 1 MG TAB PO SCH (08:26)
[2017-01-15] MEDS: MULTIVITAMINS/MINERALS THERAP 1 TAB PO SCH (08:26)
[2017-01-15] MEDS: SENOKOT S TAB PO SCH ×2 (08:26→21:00)
[2017-01-15] MEDS: BISACODYL 10 MG SUPP PR SCH (08:26)
[2017-01-15] MEDS: ENOXAPARIN 30 MG/0.3 ML SYR (J1650) SC SCH (08:26)
[2017-01-15 10:39] LABS: MEAN CORPUSCULAR HEMOGLOBIN 29.7 pg (27.0-33.0); MEAN CORPUSCULAR HGB CONC 34.5 g/dl (32.0-36.5); RED CELL DISTRIBUTION WIDTH 12.2 % (11.5-14.5); WHITE BLOOD COUNT 6.9 K/mm3 (4.0-10.0)
[2017-01-15] MEDS ORDERED: diphenhydrAMINE INJ 50MG/ML VIAL (J1200) IM PRN (10:45)
--- NOTE | 2017-01-15 10:53 | IPNPDOC ---
Date Seen The patient was seen on 01/15/17. Progress Note SUBJECTIVE: Patient is a 76-year-old female with altered mental status. Patient is evaluated at bedside this morning. She is alert and somewhat conversant. She tells me she is depressed. I encouraged her to take her oral medications which would possibly help with her depression, but she told me that she could not take her medications now. When I inquired as to why should could not take her medications I was not given any type of response. She is able to tell me her name, date of , and the city we are in, but cannot provide any specifics regarding her hospitalization. Psychiatry has recommended that patient remain on Haldol 2mg every four hours and Benadryl 50mg every 12 hours as needed. Those changes have been made. The antibiotic has been discontinued as this is less likely an infectious cause resulting in patient's current clinical condition and more possibly related to her medication dis-use. OBJECTIVE PHYSICAL EXAMINATION: VITAL SIGNS: Please see below. GENERAL: Well nourished, well developed female, appears stated age, claims she is depressed, alert and oriented, but not to specific details, no acute distress HEENT: Atraumatic, normocephalic, PERRL, EOMI, oral mucosa appears somewhat dry , nasal septum appears midline, nares are patent CARDIOVASCULAR: Grade 2/6 systolic murmur appreciated over the left sternal border, third intercostal space RESPIRATORY: Clear to auscultation bilaterally, adequate inspiratory and expiratory airway excursion, no wheeze, rhonchi, crackles ABDOMINAL: Soft, flat, non-tender, non-distended, bowel sounds appreciated EXTREMITIES: Without appreciable edema, peripheral pulses appreciated bilaterally in upper and lower extremities, equal, symmetrical, +2/4 NEUROLOGICAL: CN II-XII grossly intact PSYCHOLOGICAL: Alert and oriented, but not to specifics LABORATORY DATA: Please see below. MICROBIOLOGY: Please see below. DVT prophylaxis ordered?: Lovenox 30mg SC daily; however, patient is refusing. ASSESSMENT AND PLAN: This is a 76-year-old female with altered mental status, likely related to medication dis-use. PROBLEMS: 1. Altered mental status: Psychiatry consulted. Likely delirium-related. Recommendations include Haldol 2mg IM every 4 hours and Benadryl 50mg IM every 12 hours as needed for extrapyramidal side effects. Changes have been made. EEG scheduled for Tuesday. Patient unable to comply yesterday secondary to agitation and confusion. Meropenem discontinued. Negative blood and urine cultures. Leukocytosis resolved. 2. Hypernatremia: FeNa 0.2% indicating a pre-renal cause. Adjusted IVF to 1/ 2NS at 100 mLs/hr. Monitor BMP. 3. Rhabdomyolysis: CPK is improving with IVF resuscitation. DISPOSITION: EEG on Tuesday if patient is able to comply. Psychiatry consulted and recommendations implemented. VS, I&O, 24H, Fishbone Vital Signs/I&O Vital Signs Date Time Temp Pulse Resp B/P (MAP) Pulse Ox O2 Delivery O2 Flow Rate FiO2 01/15/17 08:00 99.1 62 18 160/80 (106) 95 Room Air I&O- Last 24 Hours up to 6 AM 01/15/17 06:00 Intake Total 1220 ml Output Total 600 ml Balance 620 ml Laboratory Data 24H LABS Laboratory Tests 2 01/14/17 13:00: Total Creatine Kinase 596H, Creatine Kinase MB 8.4H, Creatine Kinase MB Relative Index 1.40, Troponin I 0.05# 01/15/17 10:19: Microbiology Microbiology 01/13/17 Blood Culture - Preliminary, Resulted No Growth after 48 hours. All Specime... 01/13/17 Blood Culture - Preliminary, Resulted No Growth after 48 hours. All Specime... 01/13/17 Urine Culture - Final, Complete GME ATTESTATION GME ATTESTATION My preceptor for this patient encounter was physically present in the building during the encounter and was fully available. As needed, all aspects of the patient interview, examination, medical decision making process, and medical care plan development were reviewed and approved by the preceptor. Preceptor is aware and concurs with the plan as stated in the body of this note and will attest to such by his/her cosignature. ATTENDING NOTE I have both independently examined this patient as well as reviewed the note. I have discussed in detail with the resident the findings and plan of treatment as documented in the residents note. I will continue to follow the patient and offer further guidance to the patients care as necessary during this hospital stay. ANJELICA Vila MD-I Jan 15, 2017 10:53 EVON HUNTER MD Jan 31, 2017 18:49
[2017-01-15 11:17] LABS: ALBUMIN 3.1 GM/DL (3.2-5.2); ALBUMIN/GLOBULIN RATIO 1.24 (1.00-1.93); ALKALINE PHOSPHATASE 46 U/L (45-117); ALT/SGPT 38 U/L (12-78); ANION GAP 12 MEQ/L (8-16); AST/SGOT 37 U/L (15-37); BILIRUBIN,TOTAL 0.8 MG/DL (0.2-1.0); BLOOD UREA NITROGEN 13 MG/DL (7-18); CALCIUM LEVEL 8.6 MG/DL (8.8-10.2); CARBON DIOXIDE LEVEL 25 MEQ/L (21-32); CHLORIDE LEVEL 107 MEQ/L (98-107); CREATININE FOR GFR 0.42 MG/DL (0.55-1.02); GLOMERULAR FILTRATION RATE > 60.0 (>39); GLUCOSE, FASTING 81 MG/DL (83-110); MAGNESIUM LEVEL 1.5 MG/DL (1.8-2.4); POTASSIUM SERUM 3.8 MEQ/L (3.5-5.1); SODIUM LEVEL 144 MEQ/L (136-145); TOTAL PROTEIN 5.6 GM/DL (6.4-8.2)
[2017-01-15 12:00] VITALS: BP 160/78
[2017-01-15 16:00] VITALS: BP 128/78
[2017-01-15 20:27] VITALS: BP 158/76
[2017-01-15] MEDS: OXcarbazepine 300 MG TAB PO SCH (21:00)
[2017-01-15] MEDS: risperiDONE 2 MG TAB PO SCH (21:00)
[2017-01-15] MEDS: MIRTAZAPINE 15 MG TAB PO SCH (21:00)
[2017-01-16 00:45] VITALS: BP 144/74
[2017-01-16] MEDS: HALOPERIDOL 5 MG/ML VIAL (J1630) IM SCH ×5 (02:22→20:00)
[2017-01-16 03:30] VITALS: BP 140/85
[2017-01-16 08:00] VITALS: BP 155/78
[2017-01-16] MEDS ORDERED: MAG SULF 1GM/100ML (MAG RUN) 1 GM in APPROPRIATE DILUENT 1 EA IV ONE (08:00)
[2017-01-16] MEDS: SENOKOT S TAB PO SCH ×2 (09:00→21:00)
[2017-01-16] MEDS: BISACODYL 10 MG SUPP PR SCH (09:00)
[2017-01-16] MEDS: FOLIC ACID 1 MG TAB PO SCH (09:00)
[2017-01-16] MEDS: ENOXAPARIN 30 MG/0.3 ML SYR (J1650) SC SCH (09:00)
[2017-01-16] MEDS: MULTIVITAMINS/MINERALS THERAP 1 TAB PO SCH (09:00)
[2017-01-16] MEDS: THIAMINE 100 MG TAB PO SCH (09:00)
[2017-01-16 09:18] LABS: MEAN CORPUSCULAR HEMOGLOBIN 29.9 pg (27.0-33.0); MEAN CORPUSCULAR HGB CONC 35.2 g/dl (32.0-36.5); MEAN CORPUSCULAR VOLUME 85.1 fl (80.0-96.0); RED CELL DISTRIBUTION WIDTH 12.3 % (11.5-14.5); WHITE BLOOD COUNT 6.8 K/mm3 (4.0-10.0)
[2017-01-16 09:41] LABS: ALBUMIN/GLOBULIN RATIO 1.15 (1.00-1.93); ALKALINE PHOSPHATASE 46 U/L (45-117); ALT/SGPT 36 U/L (12-78); ANION GAP 11 MEQ/L (8-16); AST/SGOT 28 U/L (15-37); BLOOD UREA NITROGEN 11 MG/DL (7-18); CALCIUM LEVEL 8.6 MG/DL (8.8-10.2); CARBON DIOXIDE LEVEL 24 MEQ/L (21-32); CHLORIDE LEVEL 107 MEQ/L (98-107); CREATININE FOR GFR 0.42 MG/DL (0.55-1.02); GLOMERULAR FILTRATION RATE > 60.0 (>39); GLUCOSE, FASTING 79 MG/DL (83-110); MAGNESIUM LEVEL 1.8 MG/DL (1.8-2.4); POTASSIUM SERUM 3.8 MEQ/L (3.5-5.1); SODIUM LEVEL 142 MEQ/L (136-145); TOTAL PROTEIN 5.6 GM/DL (6.4-8.2)
[2017-01-16] MEDS: NS 0.45% 1,000 ML IV SCH (10:17)
[2017-01-16 12:00] VITALS: BP 148/79
[2017-01-16] MEDS: KCL 20MEQ IN 0.45NS 1000ML 1,000 ML IV SCH ×2 (13:59→22:01)
--- NOTE | 2017-01-16 14:17 | IPN ---
DATE: 01/16/2017 The patient seen and examined. No acute events overnight. Continued not to tolerate much oral. The patient refused to take any oral, stating that she feels the food will not go down and she will spit everything up, even though nursing staff had reported that when she is not noticed she is able to swallow. Furthermore, the patient stated that she has not been even participating in any tests. She stated that she has did a lot of bad things in her life and that she has been punished for it and she does not want to be helped or treated and she does not want any other form of nutrition, including percutaneous endoscopic gastrostomy (PEG) feed or nasogastric (NG) tube feeding. The patient stated that she was being punished for this and she deserved to . The patient does not know why. She is very nonspecific in explaining why she is being punished or what kind of bad things she did in her life. The patient denies any chest pain, pressure or discomfort. She denies any fevers or chills. As per nursing staff, the patient seems to be calmer today. She does not resist as much during blood draws. Still refused not to take any oral despite multiple attempts of persuasion. Temperature with T-max 100.1, T-current 100.1. Pulse 75. Respirations 19. Blood pressure 155/78. Pulse oximetry 94% on room air. LABORATORY: WBC 6.8, hemoglobin/hematocrit (H/H) 12.9/36.7 and platelets 202. Chemistry: Sodium 124, potassium 3.8, chloride 107, bicarbonate 24, BUN 11, creatinine 0.42, C-reactive protein 0.94. PHYSICAL EXAM: Patient alert. Follows commands. Seems calm and depressed. Alert and oriented. HEENT: Normocephalic, atraumatic. Pupils equal and reactive bilaterally to light. CARDIAC: Regular. 2/6 systolic murmur. PULMONARY: Bilateral clear to auscultation. ABDOMEN: Soft. Nontender. Positive bowel sounds. EXTREMITIES: No clubbing, cyanosis or edema. ASSESSMENT AND PLAN: This is a 76-year-old female patient with underlying medical history of bipolar disorder, borderline personality disorder, hypertension, dyslipidemia, admitted with generalized confusion, generalized weakness, altered mental status. PROBLEM: 1. Altered mental status. The patient is psychotic. Possible also with delirium. EEG has been scheduled for Tuesday. Psychiatry has been consulted. No focal neurological deficit. Psychiatry has been consulted. Recommending Haldol 2 mg IM every 4 hours with Benadryl 50 mg IM every 12 hours as needed for extrapyramidal effects. The case was discussed with Dr. Trinidad and also with Dr. Read. Initially on antibiotics. Given culture results have all been negative with resolving leukocytosis, antibiotics have been discontinued. 2. Rhabdomyolysis, resolved with IV fluids. 3. Acute kidney injury (TOMMY), resolved with IV fluids. 4. Constipation, resolved. 5. Deep vein thrombosis (DVT) prophylaxis. Lovenox subcutaneous. DISPOSITION PLANNING: Pending clinical improvement. Further psychiatric evaluation. Will get PICC line in preparation for possible total parenteral nutrition in the event that patient continues to refuse by mouth. Will give prealbumin, 24 calorie count. Encourage nursing staff to encourage oral and leave food in room to stimulate hunger.
[2017-01-16 16:00] VITALS: BP 167/80
--- NOTE | 2017-01-16 17:28 | IPN ---
DATE: 01/16/2017 CHIEF COMPLAINT: Says cannot swallow. SUBJECTIVE: She is 76 years old. She has been in the hospital the last few days, was admitted as she had not been able to swallow, was not eating anything, and refused her medications, and had become dehydrated. There was some concern that she was getting confused as well. She was admitted by the hospitalist, has been dehydrated. Hydration has improved. She has continued refusing to swallow. Was seen by my colleague, Dr. Trinidad, a few days ago. The patient has been started on Haldol 2 mg intramuscular every four hours. She has declined using her Trileptal , risperidone. I am flat ironer this weekend, and the patient has not been eating, declining her medicines, has refused to swallow, though it is suggested, per staff, when unobserved, does tend to swallow food, though I am not clear about these details. She says she feels her thoughts are interfering with her swallowing, and that the thoughts are related to bad things that she may have done during her lifetime, and nothing specific, but all accumulating together. Has been ruminating about these matters, but did not go into details. She suggests at times can hear her thoughts, though denies voices belonging to anyone else. She also feels she is being punished by her lifetime of bad deeds. She recognized me from seeing me in the clinic a month ago. That was her first visit, and that is the only time I have seen her prior to this. She has gone to the bathroom, but only with assistance. Feels anxious as well, quite depressed, feels hopeless, denies any suicidal thoughts or intents. MENTAL STATUS EXAMINATION: She is cooperative. She recognized me from when she saw me a month ago, has some latency of responses. No agitation. Is coherent, feels depressed. Affect is congruent, restricted in range, appears mildly anxious as well. Denies any suicidal thoughts or intents. Denies any auditory or visual hallucinations. She ruminates on past "bad things"(please clarify), to the point of being deluded, manifesting in decrease in oral intake. She is alert , she is oriented to time, place, and person, concentration and short-term memory are good. Currently there is no fluctuation of consciousness noted. Judgment and insight are compromised. She is depressed, severely so, anxious, deluded. This impacts her nutrition, to the point where parenteral nutrition is being considered. She is less distracted than when she was seen in the office a month ago. Her cognition is grossly intact, and there is no fluctuation of consciousness. RECOMMENDATIONS: She is currently getting Haldol 2 mg intramuscular every four hours. I would suggest decreasing to every six hours. I would suggest adding Ativan 1 mg twice a day orally, and if she declines, would consider intramuscular Ativan to help decrease anxiety, which may then make the patient more amenable to oral intake, enhancing nutrition. Encourage mobility out of bed. Hold the Ativan and Haldol if the patient is sedated. MTDD
[2017-01-16 19:42] VITALS: BP 163/84
[2017-01-16] MEDS: MIRTAZAPINE 15 MG TAB PO SCH (21:00)
[2017-01-16] MEDS: LORazepam 1 MG TAB PO SCH (21:00)
[2017-01-16] MEDS: risperiDONE 2 MG TAB PO SCH (21:00)
[2017-01-16] MEDS: OXcarbazepine 300 MG TAB PO SCH (21:00)
[2017-01-16] MEDS: LORazepam 2 MG/ML VIAL (J2060) IM SCH (21:59)
[2017-01-17 00:48] VITALS: BP 157/77
[2017-01-17] MEDS: HALOPERIDOL 5 MG/ML VIAL (J1630) IM SCH ×4 (02:12→20:27)
[2017-01-17 05:27] VITALS: BP 136/76
[2017-01-17 08:00] VITALS: BP 156/87
[2017-01-17] MEDS: MULTIVITAMINS/MINERALS THERAP 1 TAB PO SCH (09:00)
[2017-01-17] MEDS: FOLIC ACID 1 MG TAB PO SCH (09:00)
[2017-01-17] MEDS: SENOKOT S TAB PO SCH ×2 (09:00→20:38)
[2017-01-17] MEDS: THIAMINE 100 MG TAB PO SCH (09:00)
[2017-01-17] MEDS: LORazepam 1 MG TAB PO SCH ×2 (09:00→20:38)
[2017-01-17] MEDS: BISACODYL 10 MG SUPP PR SCH (09:31)
[2017-01-17] MEDS: ENOXAPARIN 30 MG/0.3 ML SYR (J1650) SC SCH (09:32)
[2017-01-17] MEDS: KCL 20MEQ IN 0.45NS 1000ML 1,000 ML IV SCH (09:33)
[2017-01-17] MEDS: LORazepam 2 MG/ML VIAL (J2060) IM SCH ×2 (09:33→20:28)
--- NOTE | 2017-01-17 12:19 | IPN ---
DATE: 01/17/2017 SUBJECTIVE: The patient is seen at bedside laying down comfortably in bed, sleeping. When I woke her up, she was alert, cooperative, answering questions appropriately. I asked her if anything was bothering her, she states that lots of things bother her. When I asked particularly what, she says that she does not feel any compassion for the people on the boat and floods. I asked her if she has been eating anything. She says that she cannot swallow. She said that something is going on in her head, which is causing her trouble in swallowing and she says that she chokes when she tries to swallow. However, when I asked if she has any pain, she denied any pain in her throat. I asked her whether we could go do a test to check her swallowing. She refused the test. She said that everything is in her head and she does not want to do any tests. The patient denied any chest pain, or shortness of breath. She denied any abdominal pain. No nausea or vomiting. Denies any fever or chills. PHYSICAL EXAMINATION: VITAL SIGNS: Temperature 98.8, pulse 88, respiratory rate 94, blood pressure 156/87, pulse oximetry 95% in room air. GENERAL: Patient awake, alert. HEENT: Normocephalic atraumatic. Moist mucous membranes, however, tongue appears to be dry probably because she is a mouth breather, anicteric eyes. CHEST: Clear to auscultation. Bilateral vesicular breath sounds. CARDIOVASCULAR: S1. S2 regular. No rub, murmur, gallop. ABDOMEN: Soft, nontender. Bowel sounds present. EXTREMITIES: No edema. LABORATORY DATA: WBC 6.8, hemoglobin 12.9, platelet count 102. Sodium 142, potassium 3.8, chloride 107, bicarbonate 24, BUN 11, creatinine 0.4, glucose 79, calcium 8.6. Liver function tests normal. Albumin 3, blood cultures no growth till now. ASSESSMENT/PLAN: This is a 76-year-old female with underlying history of bipolar disorder, borderline personality disorder, hypertension, dyslipidemia admitted for altered mental status. PLAN: Altered mental status due to acute psychosis with possible delirium. Delirium seems to be improving. Has been seen by psychiatry and it is felt that she is severely depressed and anxious so the patient is on Haldol and Ativan. The patient is also on oral risperidone, Trileptal and Remeron, which she is refusing to take. Will follow psychiatric recommendations regarding her antipsychotic medications. Dehydration due to poor oral intake. At present, the patient still continues to refuse oral food or medications. The patient's nutritional status is worsening. If she continues to refuse by mouth, then she may need total parenteral nutrition (TPN) for maintenance of nutrition. The patient has been ordered a PICC line. The patient refuses to keep in an nasogastric (NG) tube. The patient refused to swallow. Rhabdomyolysis, resolved. Acute kidney injury, resolved. Diet: Will continue the patient on IV fluids for maintenance of hydration. The patient has been ordered a calorie counter for her calorie count. If patient continues to refuse feeding by mouth, and her nutritional status worsens, we will have to consider TPN. Deep venous thrombosis prophylaxis: The patient is on Lovenox.
[2017-01-17] MEDS: KCL 20MEQ IN D5/0.45NS 1000ML 1,000 ML IV SCH (12:34)
[2017-01-17 17:00] VITALS: BP 133/82
[2017-01-17] MEDS: SODIUM CHLORIDE 0.9% INJ 10 ML SYR IV SCH (17:51)
[2017-01-17] MEDS ORDERED: SODIUM CHLORIDE 0.9% INJ 10 ML SYR IV PRN (18:00)
[2017-01-17 20:00] VITALS: BP 170/84
[2017-01-17] MEDS: OXcarbazepine 300 MG TAB PO SCH (20:38)
[2017-01-17] MEDS: risperiDONE 2 MG TAB PO SCH (20:38)
[2017-01-17] MEDS: MIRTAZAPINE 15 MG TAB PO SCH (20:38)
[2017-01-18] VITALS: BP 168/80
[2017-01-18] MEDS: HALOPERIDOL 5 MG/ML VIAL (J1630) IM SCH ×4 (02:13→20:15)
[2017-01-18 04:00] VITALS: BP 152/73
[2017-01-18] MEDS: KCL 20MEQ IN D5/0.45NS 1000ML 1,000 ML IV SCH ×2 (04:44→18:41)
[2017-01-18] MEDS: SODIUM CHLORIDE 0.9% INJ 10 ML SYR IV SCH ×2 (04:45→18:42)
[2017-01-18 05:05] LABS: MEAN CORPUSCULAR HEMOGLOBIN 29.6 pg (27.0-33.0); MEAN CORPUSCULAR HGB CONC 34.3 g/dl (32.0-36.5); MEAN CORPUSCULAR VOLUME 86.3 fl (80.0-96.0); RED CELL DISTRIBUTION WIDTH 12.4 % (11.5-14.5); WHITE BLOOD COUNT 8.8 K/mm3 (4.0-10.0)
[2017-01-18 05:46] LABS: ALBUMIN/GLOBULIN RATIO 1.11 (1.00-1.93); ALKALINE PHOSPHATASE 50 U/L (45-117); ALT/SGPT 35 U/L (12-78); ANION GAP 9 MEQ/L (8-16); AST/SGOT 23 U/L (15-37); BILIRUBIN,TOTAL 0.8 MG/DL (0.2-1.0); BLOOD UREA NITROGEN 8 MG/DL (7-18); CALCIUM LEVEL 8.9 MG/DL (8.8-10.2); CARBON DIOXIDE LEVEL 28 MEQ/L (21-32); CHLORIDE LEVEL 106 MEQ/L (98-107); CREATININE FOR GFR 0.43 MG/DL (0.55-1.02); GLOMERULAR FILTRATION RATE > 60.0 (>39); GLUCOSE, FASTING 98 MG/DL (83-110); MAGNESIUM LEVEL 1.6 MG/DL (1.8-2.4); POTASSIUM SERUM 3.9 MEQ/L (3.5-5.1); SODIUM LEVEL 143 MEQ/L (136-145); TOTAL PROTEIN 5.7 GM/DL (6.4-8.2)
[2017-01-18] MEDS: LORazepam 1 MG TAB PO SCH ×3 (07:58→21:00)
[2017-01-18] MEDS: FOLIC ACID 1 MG TAB PO SCH (07:58)
[2017-01-18] MEDS: SENOKOT S TAB PO SCH ×3 (07:59→21:00)
[2017-01-18] MEDS: MULTIVITAMINS/MINERALS THERAP 1 TAB PO SCH (07:59)
[2017-01-18] MEDS: THIAMINE 100 MG TAB PO SCH (07:59)
[2017-01-18 08:00] VITALS: BP 157/83
[2017-01-18] MEDS ORDERED: MAG SULF 1GM/100ML (MAG RUN) 1 GM in APPROPRIATE DILUENT 1 EA IV ONE (08:00)
[2017-01-18] MEDS: LORazepam 2 MG/ML VIAL (J2060) IM SCH ×2 (08:13→20:32)
[2017-01-18] MEDS: BISACODYL 10 MG SUPP PR SCH (08:13)
[2017-01-18] MEDS: ENOXAPARIN 30 MG/0.3 ML SYR (J1650) SC SCH (08:14)
[2017-01-18 12:00] VITALS: BP 122/68
--- NOTE | 2017-01-18 13:51 | IPNPDOC ---
Date Seen The patient was seen on 01/18/17. Progress Note SUBJECTIVE: Patient tells me that she feels low, she feels depressed and that she feels as though she is not worthy of care. The patient is awake alert and oriented 3 she understands her current situation that she is in the hospital because she is not eating OBJECTIVE PHYSICAL EXAMINATION: VITAL SIGNS: Please see below. GENERAL: Elderly female lying flat in bed she is in no distress whatsoever, HEENT: She has very dry mucous membranes no elevation CVP cranial nerves II through XII are grossly intact she CARDIOVASCULAR: S1-S2 regular. RESPIRATORY: Clear to auscultation. ABDOMINAL: Bowel sounds are present but diminished there is no tenderness to palpation EXTREMITIES: No clubbing cyanosis or edema NEUROLOGICAL: Strength is 5 out of 5 in all extremities she does not cooperate with gait testing her exam is otherwise nonfocal LABORATORY DATA: Please see below. MICROBIOLOGY: Please see below. IMAGING: No new imaging DVT prophylaxis ordered?: Lovenox ASSESSMENT AND PLAN: This is a 76-year-old female with severe depression. PROBLEMS: 1. Severe depression: As of this point it does not appear to be any medical delirium fairly elaborate workup has been completed including VBG CT scan imaging of the head ammonia level liver function tests renal function testing infectious etiology workup, a normal TSH. At this time I will check a B12 level and request therapy evaluate the patient's swallowing abilities. The patient does not complain of any dysphagia rather she tells me she has edema and was inside her and that is reasonable as she is unable to eat and refuses to try it appears be a primary psychiatric delusion. I do have hopes that she will improve with IM Haldol and Ativan as treatment for her psychiatric condition. For the time being she refuses by mouth Ativan Remeron Trileptal and Risperdal 2. Sepsis syndrome: Resolved. 3. Rhabdomyolysis: Resolved 4. Acute kidney injury: Resolved. DISPOSITION: Continue to monitor psychiatric improvement. VS, I&O, 24H, Fishbone Vital Signs/I&O Vital Signs Date Time Temp Pulse Resp B/P (MAP) Pulse Ox O2 Delivery O2 Flow Rate FiO2 01/18/17 12:00 97.6 61 20 122/68 (86) 95 Room Air I&O- Last 24 Hours up to 6 AM 01/18/17 05:59 Intake Total 2000 ml Output Total 350 ml Balance 1650 ml Laboratory Data 24H LABS Laboratory Tests 2 01/18/17 04:41: Anion Gap 9, Glomerular Filtration Rate > 60.0, Blood Urea Nitrogen 8, Creatinine 0.43L, Sodium Level 143, Potassium Level 3.9, Chloride Level 106, Carbon Dioxide Level 28, Calcium Level 8.9, Aspartate Amino Transf (AST/SGOT) 23 , Alanine Aminotransferase (ALT/SGPT) 35, Total Creatine Kinase 270H, Alkaline Phosphatase 50, Total Bilirubin 0.8, Total Protein 5.7L, Albumin 3.0L, Magnesium Level 1.6L, Albumin/Globulin Ratio 1.11 CBC/BMP Laboratory Tests 01/18/17 04:41 Red Blood Count 4.38, Mean Corpuscular Volume 86.3, Mean Corpuscular Hemoglobin 29.6, Mean Corpuscular Hemoglobin Concent 34.3, Red Cell Distribution Width 12.4 , Calcium Level 8.9, Aspartate Amino Transf (AST/SGOT) 23, Alanine Aminotransferase (ALT/SGPT) 35, Total Creatine Kinase 270 H, Alkaline Phosphatase 50, Total Bilirubin 0.8, Total Protein 5.7 L, Albumin 3.0 L Microbiology Microbiology 01/13/17 Blood Culture - Final, Complete NO GROWTH AFTER 5 DAYS 01/13/17 Blood Culture - Final, Complete NO GROWTH AFTER 5 DAYS 01/13/17 Urine Culture - Final, Complete JERAD ALTAMIRANO MD Jan 18, 2017 13:51
--- NOTE | 2017-01-18 13:51 | REP ---
Procedure: PICC line insertion with Immanuel The procedure was performed under the direct supervision of Dr. Mayers. The risks and benefits of the procedure were explained to the patient and informed consent was obtained. The right brachial vein was localized using ultrasound guidance. The skin was prepped and draped in a sterile fashion. 2% lidocaine was used as a local anesthetic. Using ultrasound guidance the brachial vein was cannulated and a 0.018 guidewire was inserted and advanced to the SVC using fluoroscopic guidance. The needle was removed and a 5.5 Amharic dilator and peel-away sheath was inserted over the guide wire. A 5.5 Amharic dual lumen catheter was cut to length of 41 cm. The dilator was removed and the catheter was inserted over the guide wire with the tip ending in the SVC. The peel-away sheath was removed and the catheter was flushed with heparinized saline as per Hospital protocol. The catheter was affixed to the skin and a sterile dressing was applied. The the patient tolerated the procedure well and there were no immediate complications. 0.2 minutes of fluoro time was utilized for this procedure. Reviewed by BRENT Ring 01/17/2017 05:28 PSigned by Elijah Mayers MD 01/18/2017 01:42 P
[2017-01-18 14:10] VITALS: BP 155/77
[2017-01-18 14:31] LABS: VITAMIN B12 LEVEL 818 PG/ML (247-911)
[2017-01-18] MEDS: MIRTAZAPINE 15 MG TAB PO SCH ×2 (20:15→21:00)
[2017-01-18] MEDS: OXcarbazepine 300 MG TAB PO SCH ×2 (20:15→21:00)
[2017-01-18] MEDS: risperiDONE 2 MG TAB PO SCH ×2 (20:15→21:00)
[2017-01-18 22:00] VITALS: BP 120/80
[2017-01-19] MEDS: HALOPERIDOL 5 MG/ML VIAL (J1630) IM SCH ×4 (02:48→21:29)
[2017-01-19] MEDS: SODIUM CHLORIDE 0.9% INJ 10 ML SYR IV SCH ×2 (05:07→17:18)
[2017-01-19 05:54] LABS: MEAN CORPUSCULAR HEMOGLOBIN 29.3 pg (27.0-33.0); MEAN CORPUSCULAR HGB CONC 34.1 g/dl (32.0-36.5); MEAN CORPUSCULAR VOLUME 85.8 fl (80.0-96.0); RED CELL DISTRIBUTION WIDTH 12.4 % (11.5-14.5); WHITE BLOOD COUNT 10.8 K/mm3 (4.0-10.0)
[2017-01-19 06:00] VITALS: BP 140/78
[2017-01-19 06:07] LABS: CHLORIDE LEVEL 106 MEQ/L (98-107); SODIUM LEVEL 141 MEQ/L (136-145)
[2017-01-19 06:26] LABS: ALBUMIN 3.3 GM/DL (3.2-5.2); ALBUMIN/GLOBULIN RATIO 1.14 (1.00-1.93); ALKALINE PHOSPHATASE 59 U/L (45-117); ALT/SGPT 34 U/L (12-78); ANION GAP 9 MEQ/L (8-16); AST/SGOT 17 U/L (15-37); BILIRUBIN,TOTAL 0.6 MG/DL (0.2-1.0); BLOOD UREA NITROGEN 7 MG/DL (7-18); CALCIUM LEVEL 8.9 MG/DL (8.8-10.2); CARBON DIOXIDE LEVEL 26 MEQ/L (21-32); CREATININE FOR GFR 0.61 MG/DL (0.55-1.02); GLOMERULAR FILTRATION RATE > 60.0 (>39); GLUCOSE, FASTING 113 MG/DL (83-110); MAGNESIUM LEVEL 1.8 MG/DL (1.8-2.4); TOTAL PROTEIN 6.2 GM/DL (6.4-8.2)
[2017-01-19] MEDS: KCL 20MEQ IN D5/0.45NS 1000ML 1,000 ML IV SCH ×2 (08:39→17:18)
[2017-01-19] MEDS: ENOXAPARIN 30 MG/0.3 ML SYR (J1650) SC SCH ×2 (08:40→09:04)
[2017-01-19] MEDS: LORazepam 2 MG/ML VIAL (J2060) IM SCH ×2 (08:40→21:28)
[2017-01-19] MEDS: BISACODYL 10 MG SUPP PR SCH ×2 (08:41→09:04)
[2017-01-19] MEDS: MULTIVITAMINS/MINERALS THERAP 1 TAB PO SCH (08:42)
[2017-01-19] MEDS: SENOKOT S TAB PO SCH ×2 (08:42→21:00)
[2017-01-19] MEDS: THIAMINE 100 MG TAB PO SCH (08:42)
[2017-01-19] MEDS: LORazepam 1 MG TAB PO SCH ×2 (08:42→21:00)
[2017-01-19] MEDS: FOLIC ACID 1 MG TAB PO SCH (08:42)
--- NOTE | 2017-01-19 13:45 | IPNPDOC ---
Date Seen The patient was seen on 01/19/17. Progress Note SUBJECTIVE: Patient continues to tell me she has edema in that she deserves is and she does not want to try to get better she tells me she feels depressed she feels low she feels sad. She is awake alert oriented 3 OBJECTIVE PHYSICAL EXAMINATION: VITAL SIGNS: Please see below. GENERAL: Elderly female lying flat in bed she is in no distress whatsoever, she is accompanied by her son who is visibly anxious HEENT: She has very dry mucous membranes no elevation CVP cranial nerves II through XII are grossly intact she CARDIOVASCULAR: S1-S2 regular. RESPIRATORY: Clear to auscultation. ABDOMINAL: Bowel sounds are present but diminished there is no tenderness to palpation EXTREMITIES: No clubbing cyanosis or edema NEUROLOGICAL: Strength is 5 out of 5 in all extremities she does not cooperate with gait testing her exam is otherwise nonfocal LABORATORY DATA: Please see below. MICROBIOLOGY: Please see below. IMAGING: No new imaging DVT prophylaxis ordered?: Lovenox ASSESSMENT AND PLAN: This is a 76-year-old female with severe depression. PROBLEMS: 1. Severe depression: As of this point it does not appear to be any medical delirium fairly elaborate workup has been completed including VBG CT scan imaging of the head ammonia level liver function tests renal function testing infectious etiology workup, a normal TSH. A B12 level and RPR are currently pending I did speak with Dr. Trinidad we'll revisit the patient today in order to rule out any frontal temporal dementia and MRI of the brain has been ordered. The patient does not complain of any dysphagia rather she tells me she has a demon and was inside her and that is reason as she is unable to eat and refuses to try it appears be a primary psychiatric delusion. I do have hopes that she will improve with IM Haldol and Ativan as treatment for her psychiatric condition. For the time being she refuses by mouth Ativan Remeron Trileptal and Risperdal. At the present time her electrolytes have been optimized she does not appear to be dehydrated by laboratory studies her nutritional status is adequate however should she continue to not eat for a prolonged period this would certainly declined and she would become dehydrated once again lengthy discussions were had with both the patient her and her son all QUESTIONS were answered to their satisfaction 2. Sepsis syndrome: Resolved. 3. Rhabdomyolysis: Resolved 4. Acute kidney injury: Resolved. DISPOSITION: Continue to monitor psychiatric improvement. VS, I&O, 24H, Fishbone Vital Signs/I&O Vital Signs Date Time Temp Pulse Resp B/P (MAP) Pulse Ox O2 Delivery O2 Flow Rate FiO2 01/19/17 06:00 98.6 99 20 140/78 (98) 98 Room Air I&O- Last 24 Hours up to 6 AM 01/20/17 06:00 Intake Total 563 ml Output Total 50 ml Balance 513 ml Laboratory Data 24H LABS Laboratory Tests 2 01/19/17 05:06: Anion Gap 9, Glomerular Filtration Rate > 60.0, Blood Urea Nitrogen 7, Creatinine 0.61, Sodium Level 141, Potassium Level 4.0, Chloride Level 106, Carbon Dioxide Level 26, Calcium Level 8.9, Aspartate Amino Transf (AST/SGOT) 17 , Alanine Aminotransferase (ALT/SGPT) 34, Alkaline Phosphatase 59, Total Bilirubin 0.6, Total Protein 6.2L, Albumin 3.3, Magnesium Level 1.8, Albumin/ Globulin Ratio 1.14 CBC/BMP Laboratory Tests 01/19/17 05:06 Red Blood Count 4.77, Mean Corpuscular Volume 85.8, Mean Corpuscular Hemoglobin 29.3, Mean Corpuscular Hemoglobin Concent 34.1, Red Cell Distribution Width 12.4 , Calcium Level 8.9, Aspartate Amino Transf (AST/SGOT) 17, Alanine Aminotransferase (ALT/SGPT) 34, Alkaline Phosphatase 59, Total Bilirubin 0.6, Total Protein 6.2 L, Albumin 3.3 Microbiology Microbiology 01/13/17 Blood Culture - Final, Complete NO GROWTH AFTER 5 DAYS 01/13/17 Blood Culture - Final, Complete NO GROWTH AFTER 5 DAYS 01/13/17 Urine Culture - Final, Complete JERAD ALTAMIRANO MD Jan 19, 2017 13:45
[2017-01-19 14:00] VITALS: BP 125/62
[2017-01-19] MEDS: MIRTAZAPINE 15 MG TAB PO SCH (21:00)
[2017-01-19] MEDS: risperiDONE 2 MG TAB PO SCH (21:00)
[2017-01-19] MEDS: OXcarbazepine 300 MG TAB PO SCH (21:00)
[2017-01-19 22:00] VITALS: BP 139/82
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
[2017-01-20] MEDS: HALOPERIDOL 5 MG/ML VIAL (J1630) IM SCH (02:19)
[2017-01-20 06:00] VITALS: BP 129/75
[2017-01-20] MEDS: SODIUM CHLORIDE 0.9% INJ 10 ML SYR IV SCH ×2 (06:11→18:37)
[2017-01-20] MEDS: KCL 20MEQ IN D5/0.45NS 1000ML 1,000 ML IV SCH ×2 (06:25→14:32)
[2017-01-20 06:36] LABS: MEAN CORPUSCULAR HEMOGLOBIN 29.8 pg (27.0-33.0); MEAN CORPUSCULAR HGB CONC 34.3 g/dl (32.0-36.5); MEAN CORPUSCULAR VOLUME 86.9 fl (80.0-96.0); RED CELL DISTRIBUTION WIDTH 12.3 % (11.5-14.5); WHITE BLOOD COUNT 7.2 K/mm3 (4.0-10.0)
[2017-01-20 06:53] LABS: ALBUMIN/GLOBULIN RATIO 1.11 (1.00-1.93); ALKALINE PHOSPHATASE 61 U/L (45-117); ALT/SGPT 30 U/L (12-78); ANION GAP 7 MEQ/L (8-16); AST/SGOT 14 U/L (15-37); BILIRUBIN,TOTAL 0.5 MG/DL (0.2-1.0); BLOOD UREA NITROGEN 7 MG/DL (7-18); CALCIUM LEVEL 9.2 MG/DL (8.8-10.2); CARBON DIOXIDE LEVEL 27 MEQ/L (21-32); CHLORIDE LEVEL 110 MEQ/L (98-107); CREATININE FOR GFR 0.57 MG/DL (0.55-1.02); GLOMERULAR FILTRATION RATE > 60.0 (>39); GLUCOSE, FASTING 114 MG/DL (83-110); MAGNESIUM LEVEL 1.6 MG/DL (1.8-2.4); POTASSIUM SERUM 4.2 MEQ/L (3.5-5.1); SODIUM LEVEL 144 MEQ/L (136-145); TOTAL PROTEIN 5.7 GM/DL (6.4-8.2)
[2017-01-20] MEDS ORDERED: BENZTROPINE MESYLATE 2MG/2ML VIAL IM PRN (07:00)
[2017-01-20] MEDS: MAG SULF 1GM/100ML (MAG RUN) 1 GM in APPROPRIATE DILUENT 1 EA IV SCH ×2 (09:59→11:15)
[2017-01-20] MEDS: LORazepam 2 MG/ML VIAL (J2060) IM SCH (09:59)
[2017-01-20] MEDS ORDERED: HALOPERIDOL 5 MG/ML VIAL (J1630) IM SCH (10:00)
[2017-01-20] MEDS: LORazepam 1 MG TAB PO SCH ×2 (10:03→21:00)
[2017-01-20] MEDS: SENOKOT S TAB PO SCH ×2 (10:03→21:00)
[2017-01-20] MEDS: FOLIC ACID 1 MG TAB PO SCH (10:03)
[2017-01-20] MEDS: MULTIVITAMINS/MINERALS THERAP 1 TAB PO SCH (10:03)
[2017-01-20] MEDS: BISACODYL 10 MG SUPP PR SCH (10:04)
[2017-01-20] MEDS: THIAMINE 100 MG TAB PO SCH (10:04)
[2017-01-20] MEDS: ENOXAPARIN 30 MG/0.3 ML SYR (J1650) SC SCH (10:04)
[2017-01-20] MEDS: OLANZapine INTRAMUSCULAR 10 MG VIAL (S0166) IM SCH ×2 (10:50→21:59)
--- NOTE | 2017-01-20 13:23 | IPNPDOC ---
Date Seen The patient was seen on 01/20/17. Progress Note SUBJECTIVE: Patient tells me that she is feeling a little better today. She tells me she ate last night but she is worried that the food is Geovany within her and that the team and is getting to her she denies any pain or choking or coughing. OBJECTIVE PHYSICAL EXAMINATION: VITAL SIGNS: Please see below. GENERAL: Elderly female sitting in the chair in front of a fold frail breakfast food. She is accompanied by her, son who is visibly anxious HEENT: She has very dry mucous membranes no elevation CVP cranial nerves II through XII are grossly intact she CARDIOVASCULAR: S1-S2 regular. RESPIRATORY: Clear to auscultation. ABDOMINAL: Bowel sounds are present but diminished there is no tenderness to palpation EXTREMITIES: No clubbing cyanosis or edema NEUROLOGICAL: Strength is 5 out of 5 in all extremities she does not cooperate with gait testing her exam is otherwise nonfocal, her affect is not is flat and she does smile briefly today LABORATORY DATA: Please see below. MICROBIOLOGY: Please see below. IMAGING: No new imaging DVT prophylaxis ordered?: Lovenox ASSESSMENT AND PLAN: This is a 76-year-old female with severe depression. PROBLEMS: 1. Severe depression: As of this point it does not appear to be any medical delirium fairly elaborate workup has been completed including VBG CT scan imaging of the head ammonia level liver function tests renal function testing infectious etiology workup, a normal TSH, A B12 level and RPR as well. Psychiatry's help is appreciated medication recommendations to be implanted today. Unfortunately the patient has refused to work with speech therapy and to have an MRI completed as she does not want to get better in her own words. The patient does not complain of any dysphagia rather she tells me she has a demon and was inside her and that is reason as she is unable to eat and refuses to try it appears be a primary psychiatric delusion however I have spoken with Dr. Silva of neurology will see the patient in consultation with concern for the possibility that this could be a little be body dementia. I do have hopes that she will continue to improve with IM Haldol and Ativan as treatment for her psychiatric condition as she did eat a little bit yesterday evening. For the time being she refuses by mouth Ativan Remeron Trileptal and Risperdal. At the present time her electrolytes have been optimized she does not appear to be dehydrated by laboratory studies her nutritional status is adequate however should she continue to not eat for a prolonged period this would certainly declined and she would become dehydrated once again lengthy discussions were had with both the patient her and her son all QUESTIONS were answered to their satisfaction 2. Sepsis syndrome secondary to dehydration at the time of presentation: Resolved. 3. Rhabdomyolysis: Resolved 4. Acute kidney injury: Resolved. DISPOSITION: Continue to monitor VS, I&O, 24H, [facility] Vital Signs/I&O Vital Signs Date Time Temp Pulse Resp B/P (MAP) Pulse Ox O2 Delivery O2 Flow Rate FiO2 01/20/17 08:15 19 Room Air 01/20/17 06:00 98.0 94 129/75 (93) 94 I&O- Last 24 Hours up to 6 AM 01/21/17 05:59 Intake Total 570 ml Output Total 50 ml Balance 520 ml Laboratory Data 24H LABS Laboratory Tests 2 01/20/17 06:18: Anion Gap 7L, Glomerular Filtration Rate > 60.0, Blood Urea Nitrogen 7, Creatinine 0.57, Sodium Level 144, Potassium Level 4.2, Chloride Level 110H, Carbon Dioxide Level 27, Calcium Level 9.2, Aspartate Amino Transf (AST/SGOT) 14L, Alanine Aminotransferase (ALT/SGPT) 30, Alkaline Phosphatase 61, Total Bilirubin 0.5, Total Protein 5.7L, Albumin 3.0L, Magnesium Level 1.6L, Albumin/ Globulin Ratio 1.11, Prealbumin 11.6L CBC/BMP Laboratory Tests 01/20/17 06:18 Red Blood Count 4.29, Mean Corpuscular Volume 86.9, Mean Corpuscular Hemoglobin 29.8, Mean Corpuscular Hemoglobin Concent 34.3, Red Cell Distribution Width 12.3 , Calcium Level 9.2, Aspartate Amino Transf (AST/SGOT) 14 L, Alanine Aminotransferase (ALT/SGPT) 30, Alkaline Phosphatase 61, Total Bilirubin 0.5, Total Protein 5.7 L, Albumin 3.0 L Microbiology Microbiology 01/13/17 Blood Culture - Final, Complete NO GROWTH AFTER 5 DAYS 01/13/17 Blood Culture - Final, Complete NO GROWTH AFTER 5 DAYS 01/13/17 Urine Culture - Final, Complete JERAD ALTAMIRANO MD Jan 20, 2017 13:23
[2017-01-20 14:00] VITALS: BP 124/60
[2017-01-20] MEDS: MIRTAZAPINE 15 MG TAB PO SCH (21:00)
[2017-01-20] MEDS: risperiDONE 2 MG TAB PO SCH (21:00)
[2017-01-20] MEDS: OXcarbazepine 300 MG TAB PO SCH (21:00)
[2017-01-20] MEDS: LORazepam 2 MG/ML VIAL (J2060) IM PRN (21:58)
[2017-01-20 22:00] VITALS: BP 147/75
[2017-01-21] MEDS: KCL 20MEQ IN D5/0.45NS 1000ML 1,000 ML IV SCH (04:45)
[2017-01-21 06:00] VITALS: BP 146/72
[2017-01-21] MEDS: SODIUM CHLORIDE 0.9% INJ 10 ML SYR IV SCH ×2 (06:00→14:23)
[2017-01-21 06:23] LABS: ALBUMIN 2.8 GM/DL (3.2-5.2); ANION GAP 4 MEQ/L (8-16); BLOOD UREA NITROGEN 6 MG/DL (7-18); CALCIUM LEVEL 8.6 MG/DL (8.8-10.2); CARBON DIOXIDE LEVEL 29 MEQ/L (21-32); CHLORIDE LEVEL 107 MEQ/L (98-107); CREATININE FOR GFR 0.55 MG/DL (0.55-1.02); GLOMERULAR FILTRATION RATE > 60.0 (>39); GLUCOSE, FASTING 97 MG/DL (83-110); PHOSPHORUS LEVEL 3.1 MG/DL (2.5-4.9); POTASSIUM SERUM 3.9 MEQ/L (3.5-5.1); SODIUM LEVEL 140 MEQ/L (136-145)
--- NOTE | 2017-01-21 07:36 | CR ---
DATE OF CONSULTATION: 01/20/2017 REQUESTING PHYSICIAN: Dr. Roma Kraus. REASON FOR CONSULTATION: Altered mental status. HISTORY OF PRESENT ILLNESS: Rea Murray is a 76-year-old woman with history of bipolar disorder, borderline personality disorder and history of psychiatric disorder since age 19. Patient states that she was admitted at mental health unit first time when she was 19 years old. She is not able to further characterize her psychiatric history. She was brought to [facility] due to progressive worsening confusion. A week prior to hospital admission, she stopped taking all her psychiatric medications including risperidone, Trileptal and mirtazapine and she was becoming progressive confused. She stopped eating and drinking food and liquids 3 days before the admission. She became progressively weak. She appeared weak when ambulating and going up and down the stairs. Patient denies headaches, neck or back pain. She does admit to having imbalance. She states that she came to hospital as she could not stand or survive in outside world. Patient was found to have urinary tract infection and possible sepsis for which she has been on antibiotics. She denies any falls of loss of consciousness. She denies any numbness, weakness of her arms and legs. She had intermittent tremor a few days prior to hospital admission. She stated that she gets tremor of her hands whenever she gets anxious and agitated. PAST MEDICAL HISTORY: Bipolar disorder. Borderline personality disorder. Hypertension. Dyslipidemia. Eczema. Total hysterectomy. Colonoscopy. CURRENT MEDICATIONS: - risperidone 2 mg by mouth daily at bedtime - mirtazapine 15 mg by mouth daily at bedtime - Trileptal 300 mg by mouth daily at bedtime - Zyprexa 5 mg by mouth twice daily - benztropine 1 mg by mouth twice daily - Ativan 1 mg by mouth twice daily as needed - Benadryl 50 mg by mouth twice daily as needed for agitation - thiamine 100 mg by mouth daily - Lovenox 40 mg subcutaneous once a day - folic acid 1 mg by mouth daily SOCIAL HISTORY: She lives with her . She denies smoking, alcohol or elicit drugs. FAMILY HISTORY: Father had myocardial infarction at age 79. Mother was diagnosed with stroke when she was 85 years old. REVIEW OF SYSTEMS: All systems were reviewed and found to be noncontributory except as mentioned in history of present illness. PHYSICAL EXAMINATION: Temperature 98.4, pulse 92, respiratory rate 18, blood pressure 124/60, 95% saturation on room air. Heart: Regular rate and rhythm. Lungs: Clear to auscultation. No pedal edema. Ear, nose, throat examination is within normal limits. No gross musculoskeletal abnormalities. Patient is awake, alert, oriented to place, person, month, year, name of president. She is unable to tell me exact date and day of week and month. She is oriented to City, State and Country. She can not do serial 7s. She cannot spell world backwards. Her recall is 0/3 at 5 minutes. No facial weakness. Tongue and uvula are midline. Extraocular muscles are intact. 5/5 strength in all four extremities. I do not see tremor or rigidity on either side. There is no dysmetria or ataxia. She has decreased cold, pin prick, vibration sensation in her feet. Deep tendon reflexes are 1+ in arms and knees and absent in ankles. DIAGNOSTIC STUDIES: CT scan of her head shows mild atrophy and small vessel ischemic disease of the brain. Her CBC was within normal limits. Her WBCs were 12.2. Creatinine was 1.6. Lactic acid was 4.1. ASSESSMENT: 1. Medication induced Parkinsonism. 2. Mild cognitive impairment. 3. I cannot establish diagnosis of Lewy Body dementia or Parkinson's disease in the presence of medications which induce Parkinsonism and medicines like benztropine and Benadryl which can worsen or cause cognitive impairment. She likely may have medication induced Parkinsonism but no further diagnosis can be established in the presence of her current medications. She also has penitentiary extensive history of psychiatric diseases. This also precludes any current diagnosis of Lewy Body dementia. 4. Multifactorial gait difficulty. PLAN: 1. I recommend MRI brain and cervical spine. 2. If possible, discontinue medications like benztropine and Benadryl which may worsening her cognition and cause confusion. I am not sure whether patient was taking benztropine when her confusion started at home. At that time, it may have been induced by her urinary tract infection and delirium. Currently these medications may continue to cause more confusion and cognitive dysfunction in her. I will leave these medication changes at discretion of her psychiatrist. 3. Physical and occupational therapy. 4. Check vitamin B12, serum copper, thiamine level, etc. 5. Follow at our office in 1 month after hospital discharge.
[2017-01-21] MEDS: LORazepam 2 MG/ML VIAL (J2060) IM PRN (10:24)
[2017-01-21] MEDS: LORazepam 1 MG TAB PO SCH ×2 (10:25→21:32)
[2017-01-21] MEDS: OLANZapine INTRAMUSCULAR 10 MG VIAL (S0166) IM SCH ×2 (10:25→21:33)
[2017-01-21] MEDS: FOLIC ACID 1 MG TAB PO SCH (10:25)
[2017-01-21] MEDS: MULTIVITAMINS/MINERALS THERAP 1 TAB PO SCH (10:26)
[2017-01-21] MEDS: ENOXAPARIN 30 MG/0.3 ML SYR (J1650) SC SCH (10:26)
[2017-01-21] MEDS: BISACODYL 10 MG SUPP PR SCH (10:26)
[2017-01-21] MEDS: SENOKOT S TAB PO SCH ×2 (10:26→21:32)
[2017-01-21] MEDS: THIAMINE 100 MG TAB PO SCH (10:26)
--- NOTE | 2017-01-21 12:42 | IPNPDOC ---
Date Seen The patient was seen on 01/21/17. Progress Note SUBJECTIVE: Patient tells me that she is feeling "ok" this morning she does laugh during my conversation with her she admits that she was drinking a sip of water earlier this morning she didn't have something to eat yesterday as well but again, she does not want to try eating or swallowing evaluation or to have an MRI she offers no explanation to me today for why she is refusing care OBJECTIVE PHYSICAL EXAMINATION: VITAL SIGNS: Please see below. GENERAL: Elderly female sitting in bed. She is accompanied by her, son who remains visibly anxious HEENT: She has very dry mucous membranes no elevation CVP cranial nerves II through XII are grossly intact she CARDIOVASCULAR: S1-S2 regular. RESPIRATORY: Clear to auscultation. ABDOMINAL: Bowel sounds are present but diminished there is no tenderness to palpation EXTREMITIES: No clubbing cyanosis or edema NEUROLOGICAL: Strength is 5 out of 5 in all extremities she does not cooperate with gait testing her exam is otherwise nonfocal, her affect is not is flat and she does smile briefly today LABORATORY DATA: Please see below. MICROBIOLOGY: Please see below. IMAGING: No new imaging DVT prophylaxis ordered?: Lovenox ASSESSMENT AND PLAN: This is a 76-year-old female with severe depression currently refusing to eat or to cooperate with medical care. PROBLEMS: 1. Severe depression: This appears to be the primary problem she is refusing to eat she has delusional disorder believing that she has a demon inside of her. However she is intermittently eating her sister has been able to convince her to eat. I am less suspicious for any oral pharyngeal dysphagia we will attempt to obtain a swallow evaluation of the patient has refused several times already perhaps in the presence of her sister she may repeat out into it. At this time the patient does not appear to be malnourished she is not dehydrated patient and provided with IV fluids. At this time I'll discontinue IV fluids and we will see if she is able to hold her own with the amount of intake she has been getting for the last several days by mouth. She continues to refuse all by mouth medications and imaging tests. I will defer to psychiatry if they feel the patient is a danger to herself or others. Neurology's help is appreciated I did discuss her medication adjustments with them. The patient appears to be quite stable at this time. I did speak with the patient's son answer all questions to his satisfaction at length. 2. Sepsis syndrome secondary to dehydration at the time of presentation: Resolved. 3. Rhabdomyolysis: Resolved 4. Acute kidney injury: Resolved. DISPOSITION: Continue to monitor VS, I&O, 24H, [facility] Vital Signs/I&O Vital Signs Date Time Temp Pulse Resp B/P (MAP) Pulse Ox O2 Delivery O2 Flow Rate FiO2 01/21/17 06:00 97.0 92 18 146/72 (96) 95 Room Air I&O- Last 24 Hours up to 6 AM 01/22/17 06:00 Intake Total 0 ml Output Total 100 ml Balance -100 ml Laboratory Data 24H LABS Laboratory Tests 2 01/21/17 05:51: Blood Urea Nitrogen 6L, Creatinine 0.55, Sodium Level 140, Potassium Level 3.9, Chloride Level 107, Carbon Dioxide Level 29, Anion Gap 4L, Glomerular Filtration Rate > 60.0, Calcium Level 8.6L, Phosphorus Level 3.1, Albumin 2.8L CBC/BMP Laboratory Tests 01/21/17 05:51 Anion Gap 4 L Microbiology Microbiology 01/13/17 Blood Culture - Final, Complete NO GROWTH AFTER 5 DAYS 01/13/17 Blood Culture - Final, Complete NO GROWTH AFTER 5 DAYS 01/13/17 Urine Culture - Final, Complete JERAD ALTAMIRANO MD Jan 21, 2017 12:42
[2017-01-21 14:00] VITALS: BP 139/65
[2017-01-21] MEDS: MIRTAZAPINE 15 MG TAB PO SCH (21:32)
[2017-01-21] MEDS: OXcarbazepine 300 MG TAB PO SCH (21:32)
[2017-01-21 22:00] VITALS: BP 140/73
[2017-01-22 06:00] VITALS: BP 142/76
[2017-01-22] MEDS: SODIUM CHLORIDE 0.9% INJ 10 ML SYR IV SCH ×2 (06:16→17:03)
[2017-01-22 06:57] LABS: ALBUMIN 2.8 GM/DL (3.2-5.2); ANION GAP 8 MEQ/L (8-16); BLOOD UREA NITROGEN 6 MG/DL (7-18); CALCIUM LEVEL 9.1 MG/DL (8.8-10.2); CARBON DIOXIDE LEVEL 27 MEQ/L (21-32); CHLORIDE LEVEL 108 MEQ/L (98-107); CREATININE FOR GFR 0.56 MG/DL (0.55-1.02); GLOMERULAR FILTRATION RATE > 60.0 (>39); GLUCOSE, FASTING 88 MG/DL (83-110); SODIUM LEVEL 143 MEQ/L (136-145)
[2017-01-22 07:17] LABS: PHOSPHORUS LEVEL 3.9 MG/DL (2.5-4.9)
[2017-01-22] MEDS: SENOKOT S TAB PO SCH ×2 (08:39→20:24)
[2017-01-22] MEDS: LORazepam 1 MG TAB PO SCH ×2 (08:39→20:24)
[2017-01-22] MEDS: FOLIC ACID 1 MG TAB PO SCH (08:39)
[2017-01-22] MEDS: ENOXAPARIN 30 MG/0.3 ML SYR (J1650) SC SCH (08:40)
[2017-01-22] MEDS: THIAMINE 100 MG TAB PO SCH (08:40)
[2017-01-22] MEDS: MULTIVITAMINS/MINERALS THERAP 1 TAB PO SCH (08:40)
[2017-01-22] MEDS: BISACODYL 10 MG SUPP PR SCH (08:40)
[2017-01-22] MEDS: OLANZapine INTRAMUSCULAR 10 MG VIAL (S0166) IM SCH (08:41)
[2017-01-22 14:00] VITALS: BP 105/60
--- NOTE | 2017-01-22 15:32 | IPNPDOC ---
Date Seen The patient was seen on 01/22/17. Progress Note SUBJECTIVE: Patient tells me that she is feeling tired she tells me that she is taking her pills by mouth now and that she does not want to be poked for medications any further she is agreeable to taking medications. OBJECTIVE PHYSICAL EXAMINATION: VITAL SIGNS: Please see below. GENERAL: Elderly female sitting in bed she is sleepy but easily arousable and oriented 3. HEENT: She has very moist mucous membranes no elevation CVP cranial nerves II through XII are grossly intact CARDIOVASCULAR: S1-S2 regular. RESPIRATORY: Clear to auscultation. ABDOMINAL: Bowel sounds are present but diminished there is no tenderness to palpation EXTREMITIES: No clubbing cyanosis or edema NEUROLOGICAL: Strength is 5 out of 5 in all extremities she does not cooperate with gait testing her exam is otherwise nonfocal LABORATORY DATA: Please see below. MICROBIOLOGY: Please see below. IMAGING: No new imaging DVT prophylaxis ordered?: Lovenox ASSESSMENT AND PLAN: This is a 76-year-old female with severe depression currently refusing to eat or to cooperate with medical care. PROBLEMS: 1. Severe depression: This appears to be the primary problem she is refusing to eat after several days of IM antipsychotic benzodiazepine therapy she is progressing to the point where now she is agreeable to taking medications by mouth and is taking diet by mouth, for the time being Pured diet. She has delusional disorder believing that she has a demon inside of her, and reportedly had visual hallucinations of herself having intercourse with other family members. Psychiatry did have concerns for Darshan body dementia at neurology's help is appreciated however they're unable to make a diagnosis with the patient is on antipsychotics and for the time being she appears to be improving with treatment for psychiatric condition alone. She does not appear to be malnourished she is not dehydrated she is no longer on IV fluids. Now that she is taking her medications by mouth I would discontinue all IM injections and resume her previous by mouth medications which she was refusing to avoid oversedation. 2. Sepsis syndrome secondary to dehydration at the time of presentation: Resolved. 3. Rhabdomyolysis: Resolved 4. Acute kidney injury: Resolved. DISPOSITION: Not safe as per PT and OT continued to work with therapy VS, I&O, 24H, Fishbone Vital Signs/I&O Vital Signs Date Time Temp Pulse Resp B/P (MAP) Pulse Ox O2 Delivery O2 Flow Rate FiO2 01/22/17 14:00 97.9 83 18 105/60 (75) 92 Room Air I&O- Last 24 Hours up to 6 AM 01/23/17 05:59 Intake Total 440 ml Output Total 250 ml Balance 190 ml Laboratory Data 24H LABS Laboratory Tests 2 01/22/17 06:18: Blood Urea Nitrogen 6L, Creatinine 0.56, Sodium Level 143, Potassium Level 4.0, Chloride Level 108H, Carbon Dioxide Level 27, Anion Gap 8, Glomerular Filtration Rate > 60.0, Calcium Level 9.1, Phosphorus Level 3.9#, Albumin 2.8L CBC/BMP Laboratory Tests 01/22/17 06:18 Anion Gap 8 Microbiology Microbiology 01/13/17 Blood Culture - Final, Complete NO GROWTH AFTER 5 DAYS 01/13/17 Blood Culture - Final, Complete NO GROWTH AFTER 5 DAYS 01/13/17 Urine Culture - Final, Complete JERAD ALTAMIRANO MD Jan 22, 2017 15:32
[2017-01-22] MEDS: OXcarbazepine 300 MG TAB PO SCH (20:24)
[2017-01-22] MEDS: MIRTAZAPINE 15 MG TAB PO SCH (20:24)
[2017-01-22 22:00] VITALS: BP 128/83
[2017-01-23] MEDS: SODIUM CHLORIDE 0.9% INJ 10 ML SYR IV SCH ×2 (05:59→17:50)
[2017-01-23 06:00] VITALS: BP 140/63
[2017-01-23 07:07] LABS: ALBUMIN 2.9 GM/DL (3.2-5.2); ANION GAP 7 MEQ/L (8-16); CALCIUM LEVEL 8.4 MG/DL (8.8-10.2); CARBON DIOXIDE LEVEL 29 MEQ/L (21-32); CHLORIDE LEVEL 108 MEQ/L (98-107); CREATININE FOR GFR 0.63 MG/DL (0.55-1.02); GLOMERULAR FILTRATION RATE > 60.0 (>39); GLUCOSE, FASTING 86 MG/DL (83-110); PHOSPHORUS LEVEL 3.8 MG/DL (2.5-4.9); POTASSIUM SERUM 3.7 MEQ/L (3.5-5.1); SODIUM LEVEL 144 MEQ/L (136-145)
[2017-01-23 07:19] LABS: BLOOD UREA NITROGEN 12 MG/DL (7-18)
[2017-01-23] MEDS: SENOKOT S TAB PO SCH ×2 (08:29→21:00)
[2017-01-23] MEDS: THIAMINE 100 MG TAB PO SCH (08:29)
[2017-01-23] MEDS: MULTIVITAMINS/MINERALS THERAP 1 TAB PO SCH (08:29)
[2017-01-23] MEDS: FOLIC ACID 1 MG TAB PO SCH (08:29)
[2017-01-23] MEDS: LORazepam 1 MG TAB PO SCH (08:29)
[2017-01-23] MEDS: ENOXAPARIN 30 MG/0.3 ML SYR (J1650) SC SCH (08:30)
[2017-01-23] MEDS: BISACODYL 10 MG SUPP PR SCH (08:30)
--- NOTE | 2017-01-23 12:42 | IPNPDOC ---
Date Seen The patient was seen on 01/23/17. Progress Note SUBJECTIVE: Patient tells me that she is feeling tired she has no complaints and disagrees that she is eating and taking pills by mouth at this time. OBJECTIVE PHYSICAL EXAMINATION: VITAL SIGNS: Please see below. GENERAL: Elderly female sitting in bed she is sleepy but easily arousable and oriented 3. HEENT: She has very moist mucous membranes no elevation CVP cranial nerves II through XII are grossly intact CARDIOVASCULAR: S1-S2 regular. RESPIRATORY: Clear to auscultation. ABDOMINAL: Bowel sounds are present but diminished there is no tenderness to palpation EXTREMITIES: No clubbing cyanosis or edema NEUROLOGICAL: Strength is 5 out of 5 in all extremities she does not cooperate with gait testing her exam is otherwise nonfocal LABORATORY DATA: Please see below. MICROBIOLOGY: Please see below. IMAGING: No new imaging DVT prophylaxis ordered?: Lovenox ASSESSMENT AND PLAN: This is a 76-year-old female with severe depression currently refusing to eat or to cooperate with medical care. PROBLEMS: 1. Severe depression: This appears to be the primary problem she initially refused to eat for several days but appears to have improved with IM psychotropic medications.. She is now eating and taking all meds per mouth and compliant with care. She does appear to have a delusional disorder believing that she has a demon inside of her, and reportedly had visual hallucinations of herself having intercourse with other family members. Psychiatry did have concerns for Lewy body dementia and neurology's help is appreciated however they 're unable to make a diagnosis with the patient is on antipsychotics and for the time being she appears to be improving with treatment for psychiatric condition alone. She does not appear to be malnourished she is not dehydrated she is no longer on IV fluids. I have restarted her on her home psychiatric medications which she had previously self d/c'd herself from. Will continue to monitor, she has not had any identifiable medical problem for several days and once cleared by PT/OT I suspect she can be discharged home with close psychiatric f/u, vs. admission to inpatient mental health 2. Sepsis syndrome secondary to dehydration at the time of presentation: Resolved. 3. Rhabdomyolysis: Resolved 4. Acute kidney injury: Resolved. DISPOSITION: Not safe as per PT and OT continued to work with therapy VS, I&O, 24H, Fishbone Vital Signs/I&O Vital Signs Date Time Temp Pulse Resp B/P (MAP) Pulse Ox O2 Delivery O2 Flow Rate FiO2 01/23/17 06:00 97.8 93 15 140/63 (88) 91 Room Air I&O- Last 24 Hours up to 6 AM 01/24/17 06:00 Intake Total 200 ml Balance 200 ml Laboratory Data 24H LABS Laboratory Tests 2 01/23/17 06:00: Blood Urea Nitrogen 12#, Creatinine 0.63, Sodium Level 144, Potassium Level 3.7 , Chloride Level 108H, Carbon Dioxide Level 29, Anion Gap 7L, Glomerular Filtration Rate > 60.0, Calcium Level 8.4L, Phosphorus Level 3.8, Albumin 2.9L CBC/BMP Laboratory Tests 01/23/17 06:00 Anion Gap 7 L Microbiology Microbiology 01/13/17 Blood Culture - Final, Complete NO GROWTH AFTER 5 DAYS 01/13/17 Blood Culture - Final, Complete NO GROWTH AFTER 5 DAYS 01/13/17 Urine Culture - Final, Complete JERAD ALTAMIRANO MD Jan 23, 2017 12:42
[2017-01-23 14:00] VITALS: BP 127/74
[2017-01-23] MEDS: MIRTAZAPINE 15 MG TAB PO SCH (21:00)
[2017-01-23] MEDS ORDERED: LORazepam 1 MG TAB PO SCH (21:00)
[2017-01-23] MEDS ORDERED: LORazepam 1 MG TAB PO PRN (21:00)
[2017-01-23] MEDS: OXcarbazepine 300 MG TAB PO SCH (21:01)
[2017-01-23 22:00] VITALS: BP 136/79
[2017-01-23] MEDS: risperiDONE 2 MG TAB PO SCH (22:11)
[2017-01-24] MEDS: SODIUM CHLORIDE 0.9% INJ 10 ML SYR IV SCH ×2 (05:39→17:38)
[2017-01-24 06:00] VITALS: BP 103/58
[2017-01-24 06:29] LABS: ALBUMIN 3.1 GM/DL (3.2-5.2); ANION GAP 9 MEQ/L (8-16); BLOOD UREA NITROGEN 13 MG/DL (7-18); CALCIUM LEVEL 9.1 MG/DL (8.8-10.2); CARBON DIOXIDE LEVEL 28 MEQ/L (21-32); CHLORIDE LEVEL 103 MEQ/L (98-107); CREATININE FOR GFR 0.68 MG/DL (0.55-1.02); GLOMERULAR FILTRATION RATE > 60.0 (>39); GLUCOSE, FASTING 92 MG/DL (83-110); POTASSIUM SERUM 3.9 MEQ/L (3.5-5.1); SODIUM LEVEL 140 MEQ/L (136-145)
[2017-01-24] MEDS: SENOKOT S TAB PO SCH ×2 (07:55→20:49)
[2017-01-24] MEDS: FOLIC ACID 1 MG TAB PO SCH (07:55)
[2017-01-24] MEDS: THIAMINE 100 MG TAB PO SCH (07:55)
[2017-01-24] MEDS: MULTIVITAMINS/MINERALS THERAP 1 TAB PO SCH (07:55)
[2017-01-24] MEDS: ENOXAPARIN 30 MG/0.3 ML SYR (J1650) SC SCH (07:56)
[2017-01-24] MEDS: BISACODYL 10 MG SUPP PR SCH (09:00)
--- NOTE | 2017-01-24 13:01 | IPNPDOC ---
Date Seen The patient was seen on 01/24/17. Progress Note SUBJECTIVE: Patient tells me that she is feeling better and she wants to walk more and sick of being in bed. She smiles and is conversant today. OBJECTIVE PHYSICAL EXAMINATION: VITAL SIGNS: Please see below. GENERAL: Elderly female sitting in bed she is sleepy but easily arousable and oriented 3. HEENT: She has very moist mucous membranes no elevation CVP cranial nerves II through XII are grossly intact CARDIOVASCULAR: S1-S2 regular. RESPIRATORY: Clear to auscultation. ABDOMINAL: Bowel sounds are present but diminished there is no tenderness to palpation EXTREMITIES: No clubbing cyanosis or edema NEUROLOGICAL: Strength is 5 out of 5 in all extremities she does not cooperate with gait testing her exam is otherwise nonfocal LABORATORY DATA: Please see below. MICROBIOLOGY: Please see below. IMAGING: No new imaging DVT prophylaxis ordered?: Lovenox ASSESSMENT AND PLAN: This is a 76-year-old female with severe depression currently refusing to eat or to cooperate with medical care. PROBLEMS: 1. Severe depression: This appears to be the primary problem she initially refused to eat for several days but appears to have improved with IM psychotropic medications. She is now eating and taking all meds per mouth and compliant with care. She does appear to have a delusional disorder believing that she has a demon inside of her, and reportedly had visual hallucinations of herself having intercourse with other family members. Psychiatry did have concerns for Lewy body dementia and neurology's help is appreciated however they 're unable to make a diagnosis with the patient is on antipsychotics and for the time being she appears to be improving with treatment for psychiatric condition alone. They have suggested additional of Zyprexa, seroquel, or Lamicatal. 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 She is agreeable for MRI at this time so we will re order. She does not appear to be malnourished she is not dehydrated she is no longer on IV fluids. Will continue to monitor, she has not had any identifiable medical problem for several days and once cleared by PT /OT I suspect she can be discharged home with close psychiatric and neurology f/ u, vs. admission to inpatient mental health 2. Sepsis syndrome secondary to dehydration at the time of presentation: Resolved. 3. Rhabdomyolysis: Resolved 4. Acute kidney injury: Resolved. DISPOSITION: Not safe as per PT and OT continued to work with therapy VS, I&O, 24H, Fishbone Vital Signs/I&O Vital Signs Date Time Temp Pulse Resp B/P (MAP) Pulse Ox O2 Delivery O2 Flow Rate FiO2 01/24/17 06:00 98.0 94 16 103/58 (73) 94 Room Air I&O- Last 24 Hours up to 6 AM 01/25/17 06:00 Intake Total 120 ml Output Total 200 ml Balance -80 ml Laboratory Data 24H LABS Laboratory Tests 2 01/24/17 05:37: Blood Urea Nitrogen 13, Creatinine 0.68, Sodium Level 140, Potassium Level 3.9, Chloride Level 103, Carbon Dioxide Level 28, Anion Gap 9, Glomerular Filtration Rate > 60.0, Calcium Level 9.1, Phosphorus Level 3.0#, Albumin 3.1L CBC/BMP Laboratory Tests 01/24/17 05:37 Anion Gap 9 JERAD ALTAMIRANO MD Jan 24, 2017 13:01
[2017-01-24 14:00] VITALS: BP 109/61
[2017-01-24] MEDS: MIRTAZAPINE 15 MG TAB PO SCH (20:49)
[2017-01-24] MEDS: OXcarbazepine 300 MG TAB PO SCH (20:49)
[2017-01-24] MEDS: risperiDONE 2 MG TAB PO SCH (20:49)
[2017-01-24 22:00] VITALS: BP 108/56
[2017-01-25] MEDS: SODIUM CHLORIDE 0.9% INJ 10 ML SYR IV SCH ×2 (05:26→18:00)
[2017-01-25 06:00] VITALS: BP 130/65
[2017-01-25 06:19] LABS: ALBUMIN 2.7 GM/DL (3.2-5.2); ANION GAP 4 MEQ/L (8-16); BLOOD UREA NITROGEN 14 MG/DL (7-18); CARBON DIOXIDE LEVEL 32 MEQ/L (21-32); CHLORIDE LEVEL 104 MEQ/L (98-107); CREATININE FOR GFR 0.69 MG/DL (0.55-1.02); GLOMERULAR FILTRATION RATE > 60.0 (>39); GLUCOSE, FASTING 88 MG/DL (83-110); PHOSPHORUS LEVEL 3.4 MG/DL (2.5-4.9); POTASSIUM SERUM 3.8 MEQ/L (3.5-5.1); SODIUM LEVEL 140 MEQ/L (136-145)
[2017-01-25] MEDS: THIAMINE 100 MG TAB PO SCH (08:25)
[2017-01-25] MEDS: MULTIVITAMINS/MINERALS THERAP 1 TAB PO SCH (08:25)
[2017-01-25] MEDS: SENOKOT S TAB PO SCH ×2 (08:25→22:22)
[2017-01-25] MEDS: FOLIC ACID 1 MG TAB PO SCH (08:25)
[2017-01-25] MEDS: BISACODYL 10 MG SUPP PR SCH (08:26)
[2017-01-25] MEDS: ENOXAPARIN 30 MG/0.3 ML SYR (J1650) SC SCH (08:26)
--- NOTE | 2017-01-25 08:32 | REP ---
MRI BRAIN WITHOUT CONTRAST: HISTORY: Dementia. COMPARISON: CT 01/13/2017. Scattered punctate areas of increased signal intensity on T2-weighted images are present in the periventricular and subcortical white matter. This represents small vessel ischemic disease. There is no intraparenchymal hemorrhage, infarct, mass or midline shift. The ventricular system and cortical sulci are dilated consistent with mild volume loss. There is no extracerebral collection. The sinuses are clear. IMPRESSION: 1. Minimal small vessel ischemic disease. 2. Mild volume loss. Signed by Mc Root MD 01/25/2017 08:49 A
--- NOTE | 2017-01-25 08:35 | REP ---
MRI CERVICAL SPINE WITHOUT CONTRAST: HISTORY: Dementia. A disc bulge is present at the C4-5 level. There is minimal effacement of the thecal sac without spinal cord compression. The C4 neural foramina are patent. A disc bulge with associated osteophyte formation is present at the C5-6 level. There is mild effacement of the thecal sac without spinal cord compression. Bilateral uncinate process hypertrophy is present. These findings produce minimal and moderate narrowing of the right and left C5 neural foramina respectively. A disc bulge is present at the C6-7 level. There is minimal effacement of the thecal sac without spinal cord compression. Bilateral uncinate process hypertrophy is present. This produces mild and moderate narrowing of the right and left C6 neural foramina respectively. There is no other disc bulge or herniation. The remaining neural foramina are patent. The spinal cord is normal in signal intensity. The C4-5 through C6-7 intervertebral discs are decreased in height consistent with disc degeneration. Normal signal intensity is present in the cervical vertebral bodies. IMPRESSION: There is cervical spondylosis at the C4-5 through C6-7 levels without spinal cord compression. Signed by Mc Root MD 01/25/2017 08:50 A
--- NOTE | 2017-01-25 12:26 | IPN ---
DATE: 01/25/2017 76-year-old female seen at bedside resting comfortably. She had some mild effusion, but she is able to correctly identify the city. She is a little confused on the year, but was able to identify the current sitting president. OBJECTIVE: Temperature 97.9, pulse 81, respiratory rate 18, BP 130/65, SPO2 is 95% on room air. General: The patient appears to be in no acute distress. Is alert, pleasant. HEENT: Head is atraumatic and normocephalic. Eyes: Pupils equal and reactive to light and accommodation (AURA). Throat clear. Lungs: Clear. Heart: Regular rate and rhythm. Abdomen: Soft. Extremities: No edema. No calf tenderness. LABORATORY DATA: White count is 7.2, hemoglobin 12.8 and platelets 234,000. Sodium 140, potassium 3.8, chloride 104, bicarb 32, anion gap 4, BUN is 14, creatinine 0.69, glucose is 88, calcium 9.0, phosphorous 3.4, albumin 2.7. Urine cultures negative. Blood cultures negative. ASSESSMENT/PLAN: 1. Severe depression. She does appear to be improving. Will wait physical therapy (PT)/occupational therapy (OT) today. Her MRI of the brain and C-spine were unremarkable. She is not having any delusional thoughts or any hallucinations. The goal is to make sure that she does well with PT/OT and likely discharge home with close followup with outpatient psychiatry and neurology. 2. Sepsis syndrome secondary to dehydration, resolved. 3. Rhabdomyolysis, resolved. 4. Acute kidney injury, resolved. 5. Disposition. The patient is currently not safe for home discharge from PT/OT. Will continue to work with rehabilitation. 6. Deep vein thrombosis (DVT) prophylaxis with subcu heparin.
[2017-01-25 14:00] VITALS: BP 111/55
--- NOTE | 2017-01-25 21:29 | MHIPNPDOC ---
[facility] Progress Note Progress Note DATE OF SERVICE: 01/25/17 Evaluated patient today, she was seen in her room, she was sitting, talking to her when I walked in. She is talking, eating well. Her mood and affect are blunted, she expresses she has no feelings. Her speech is monotone, she feels hopeless about "recovering her feelings and become a good person". Has low self esteem, she does not deny, does not admit to have thought delusions, but she seems to be delusional and for that reason she says she is not a good person. She is not responding to intenal stimuli. her recent memory is limited, her remote memory is good. She denies suicidal and homicidal ideation and denies auditory and visual hallucinations. Patient is currently on Risperdal and Trileptal. She's on a very low dose of Remeron, appropriate for sleep but not for depression. I recommend to start her on Celexa 10 mgs PO QD as an antidepressant and discontinue Remeron. She could use Seroquel 50 mgs PO at bedtime instead of Remeron. Will f/u. TIME SPENT: 30 minutes. Vital Signs Vital Signs Date Time Temp Pulse Resp B/P (MAP) Pulse Ox O2 Delivery O2 Flow Rate FiO2 01/25/17 14:00 98.3 99 18 111/55 (73) 97 Room Air Laboratory Data 24H Labs Laboratory Tests 2 01/25/17 05:35: Blood Urea Nitrogen 14, Creatinine 0.69, Sodium Level 140, Potassium Level 3.8, Chloride Level 104, Carbon Dioxide Level 32, Anion Gap 4L, Glomerular Filtration Rate > 60.0, Calcium Level 9.0, Phosphorus Level 3.4, Albumin 2.7L CBC/BMP Laboratory Tests 01/25/17 05:35 Anion Gap 4 L Current Medications Current Medications Acetaminophen (Tylenol Tab) 650 mg Q4HP PRN PO MILD PAIN OR FEVER Last administered on 01/22/17t 20:25; Start 01/13/17 at 13:30; Stop 02/12/17 at 13: 29 Benztropine Mesylate (Cogentin) 1 mg Q24HP PRN IM extrapyramidal symptoms; Start 01/20/17 at 07:00; Stop 01/21/17 at 11:41; Status DC Bisacodyl (Dulcolax Suppository) 10 mg DAILY LA Last administered on 01/22/17 08:40; Start 01/13/17 at 09:00; Stop 02/12/17 at 08:59 Diphenhydramine HCl (Benadryl) 25 mg Q6HP PRN IM AGITATION; Start 01/14/17 at 10:00; Stop 01/15/17 at 10:38; Status DC Diphenhydramine HCl (Benadryl) 50 mg Q12H PO Last administered on 01/14/17 09: 04; Start 01/13/17 at 09:00; Stop 01/14/17 at 10:02; Status DC Diphenhydramine HCl (Benadryl) 50 mg Q12H PRN IM EXTRAPYRAMIDAL EFFECTS; Start 01/15/17 at 10:45; Stop 01/21/17 at 11:41; Status DC Enoxaparin Sodium (Lovenox) 30 mg DAILY SC Last administered on 01/25/17 08:26 ; Start 01/13/17 at 09:00; Stop 01/30/17 at 08:59 Folic Acid (Folic Acid) 1 mg DAILY PO Last administered on 01/25/17 08:25; Start 01/13/17 at 09:00; Stop 02/12/17 at 08:59 Haloperidol (Haldol) 1 mg Q6HP PRN IV AGITATION; Start 01/13/17 at 14:00; Stop 01/13/17 at 14:00; Status DC Haloperidol (Haldol) 2 mg Q4H IM Last administered on 01/16/17 13:59; Start at 14:00; Stop 01/16/17 at 16:54; Status DC Haloperidol (Haldol) 2 mg Q6H IM Last administered on 01/13/17 16:02; Start at 14:00; Stop 01/13/17 at 19:33; Status DC Haloperidol (Haldol) 2 mg Q6H IM Last administered on 01/15/17 09:35; Start at 22:00; Stop 01/15/17 at 10:37; Status DC Haloperidol (Haldol) 2 mg Q6H IM Last administered on 01/20/17 02:19; Start at 20:00; Stop 01/20/17 at 06:55; Status DC Haloperidol (Haldol) 5 mg Q8H IM Last administered on 01/20/17 09:58; Start at 10:00; Stop 01/20/17 at 13:29; Status DC Heparin Sodium (Heparin (Flush)) 200 units ASDIRECTED PRN IV SEE LABEL COMMENTS ; Start 01/17/17 at 18:00; Stop 02/16/17 at 17:59 Heparin Sodium (Heparin (Flush)) 200 units PICC IV Last administered on 18:00; Start 01/17/17 at 18:00; Stop 02/16/17 at 17:59 Home Med (Med Rec Complete!) ASDIRECTED XX ; Start 01/13/17 at 10:00; Stop at 10:01; Status DC Lactated Ringer's 1,000 ml @ 100 mls/hr Q10H IV Last administered on 03:36; Start 01/13/17 at 13:15; Stop 01/14/17 at 08:02; Status DC Levofloxacin 250 mg/IV Miscellaneous Supplies 50 ml @ 50 mls/hr Q24H IV ; Start 01/14/17 at 10:00; Stop 01/14/17 at 10:00; Status DC Levofloxacin 500 mg/IV Miscellaneous Supplies 100 ml @ 100 mls/hr Q24H IV ; Start 01/13/17 at 13:15; Stop 01/13/17 at 13:32; Status DC Lorazepam (Ativan) 1 mg BID IM Last administered on 01/20/17 09:59; Start at 21:00; Stop 01/20/17 at 10:06; Status DC Lorazepam (Ativan) 1 mg BID PO Last administered on 01/23/17 08:29; Start at 21:00; Stop 01/23/17 at 08:46; Status DC Lorazepam (Ativan) 1 mg BID PRN IM AGITATION Last administered on 01/21/17 10: 24; Start 01/20/17 at 13:30; Stop 01/22/17 at 15:28; Status DC Lorazepam (Ativan) 1 mg QHS PO ; Start 01/23/17 at 21:00; Stop 01/23/17 at 21:00 ; Status DC Lorazepam (Ativan) 1 mg QHS PRN PO sleep; Start 01/23/17 at 21:00; Stop at 20:59 Magnesium Sulfate/ Dextrose 1 gm/IV Miscellaneous Supplies 100 ml @ 100 mls/hr 0900,1000 IV Last administered on 01/20/17 11:15; Start 01/20/17 at 09:00; Stop 01/20/17 at 14:00; Status DC Meropenem 500 mg/ Dextrose 100 ml @ 200 mls/hr Q12H IV Last administered on 05:13; Start 01/13/17 at 16:00; Stop 01/14/17 at 14:44; Status DC Meropenem 500 mg/ Dextrose 100 ml @ 200 mls/hr Q8H IV Last administered on 23:33; Start 01/14/17 at 16:00; Stop 01/15/17 at 07:32; Status DC Mirtazapine (Remeron) 15 mg QHS PO Last administered on 01/24/17 20:49; Start 01/13/17 at 21:00; Stop 02/12/17 at 20:59 Multivitamins (Theragram-M) 1 tab DAILY PO Last administered on 01/25/17 08:25 ; Start 01/13/17 at 09:00; Stop 02/12/17 at 08:59 Olanzapine (Zyprexa Intramuscular) 5 mg BID IM Last administered on 01/22/17 08:41; Start 01/20/17 at 09:00; Stop 01/22/17 at 15:28; Status DC Ondansetron HCl (ZOFRAN INJection) 4 mg Q6HP PRN IV NAUSEA OR VOMITING; Start 01/13/17 at 13:30; Stop 02/12/17 at 13:29 Oxcarbazepine (Trileptal) 300 mg QHS PO Last administered on 01/24/17 20:49; Start 01/13/17 at 21:00; Stop 02/12/17 at 20:59 Potassium Chloride/Dextrose/ Sod Cl 1,000 ml @ 75 mls/hr [id number] IV Last administered on 01/21/17 04:45; Start 01/17/17 at 11:45; Stop 01/21/17 at 12:37 ; Status DC Potassium Chloride/Sodium Chloride 1,000 ml @ 100 mls/hr Q10H IV Last administered on 01/17/17 09:33; Start 01/16/17 at 13:00; Stop 01/17/17 at 11:45 ; Status DC Risperidone (RisperDAL) 2 mg QHS PO ; Start 01/13/17 at 21:00; Stop 01/21/17 at 11:43; Status DC Risperidone (RisperDAL) 2 mg QHS PO Last administered on 01/24/17 20:49; Start 01/23/17 at 21:00; Stop 02/22/17 at 20:59 Senna/Docusate Sodium (Senokot S) 2 tab BID PO Last administered on 01/25/17 08:25; Start 01/13/17 at 09:00; Stop 02/12/17 at 08:59 Sodium Chloride 1,000 ml @ 100 mls/hr Q10H IV ; Start 01/13/17 at 08:18; Stop 01/13/17 at 14:45; Status DC Sodium Chloride 1,000 ml @ 100 mls/hr Q10H IV Last administered on 01/16/17 10:17; Start 01/14/17 at 08:00; Stop 01/16/17 at 12:00; Status DC Sodium Chloride (Saline Lock Flush) 10 ML PICC IV Last administered on 18:00; Start 01/17/17 at 18:00; Stop 02/16/17 at 17:59 Sodium Chloride (Saline Lock Flush) 10ML ASDIRECTED PRN IV SEE LABEL COMMENTS; Start 01/17/17 at 18:00; Stop 02/16/17 at 17:59 Thiamine HCl (Thiamine HCl) 100 mg DAILY PO Last administered on 01/25/17 08: 25; Start 01/14/17 at 09:00; Stop 02/13/17 at 08:59 Allergies Coded Allergies: Penicillins (Verified Allergy, Severe, swelling in throat, 11/19/16) Latex (Verified Adverse Reaction, Mild, itching, 01/13/17) ANNY GRAVES MD Jan 25, 2017:29
[2017-01-25 22:00] VITALS: BP 132/72
[2017-01-25] MEDS: OXcarbazepine 300 MG TAB PO SCH (22:22)
[2017-01-25] MEDS: MIRTAZAPINE 15 MG TAB PO SCH (22:22)
[2017-01-25] MEDS: risperiDONE 2 MG TAB PO SCH (22:22)
[2017-01-26] MEDS: SODIUM CHLORIDE 0.9% INJ 10 ML SYR IV SCH ×2 (05:58→18:19)
[2017-01-26 06:00] VITALS: BP 129/76
[2017-01-26 06:43] LABS: ALBUMIN 2.7 GM/DL (3.2-5.2); ANION GAP 6 MEQ/L (8-16); BLOOD UREA NITROGEN 12 MG/DL (7-18); CALCIUM LEVEL 8.7 MG/DL (8.8-10.2); CARBON DIOXIDE LEVEL 29 MEQ/L (21-32); CHLORIDE LEVEL 104 MEQ/L (98-107); CREATININE FOR GFR 0.63 MG/DL (0.55-1.02); GLOMERULAR FILTRATION RATE > 60.0 (>39); GLUCOSE, FASTING 92 MG/DL (83-110); PHOSPHORUS LEVEL 3.6 MG/DL (2.5-4.9); POTASSIUM SERUM 3.8 MEQ/L (3.5-5.1); SODIUM LEVEL 139 MEQ/L (136-145)
[2017-01-26] MEDS: SENOKOT S TAB PO SCH ×2 (09:52→21:28)
[2017-01-26] MEDS: FOLIC ACID 1 MG TAB PO SCH (09:52)
[2017-01-26] MEDS: THIAMINE 100 MG TAB PO SCH (09:53)
[2017-01-26] MEDS: ENOXAPARIN 30 MG/0.3 ML SYR (J1650) SC SCH (09:54)
[2017-01-26] MEDS: BISACODYL 10 MG SUPP PR SCH (09:57)
[2017-01-26] MEDS: MULTIVITAMINS/MINERALS THERAP 1 TAB PO SCH (10:01)
--- NOTE | 2017-01-26 11:48 | IPN ---
DATE: 01/26/2017 76-year-old female seen sitting in chair beside her bed. She is finishing her breakfast. She has no overnight issues. She states that she still feels sad but less so, and felt that she may have slept a little better last night. Dr. Trinidad has been gracious enough to see the patient again and made some recommendations regarding her medications. OBJECTIVE: Temperature is 97, pulse 92, respiratory rate 18, blood pressure (BP) 129/76, SpO2 is 98% on room air. General: The patient appears to be in no acute distress, is alert, oriented. HEENT: Unremarkable. Lungs: Clear. Heart: Regular rate and rhythm. Abdomen: Soft. Extremities: No edema. No calf tenderness. LABORATORY DATA: White count 7.2, hemoglobin 12.8, platelets 234. Sodium 139, potassium 3.8, chloride 104, bicarbonate 29, anion gap 6, BUN is 12, creatinine 0.63, glucose is 92. ASSESSMENT AND PLAN: 1. Severe depression. She does appear to be improving. We will make some changes as outlined by psychiatry. Continue with physical therapy, occupational therapy, and we would like to make sure that she is safe for discharge home regarding her activities of daily living and being able to be relatively back to her baseline and she will likely need outpatient followup. 2. Sepsis syndrome secondary to dehydration, resolved. 3. Rhabdomyolysis, resolved. 4. Acute kidney injury secondary to dehydration, resolved. 5. Deep venous thrombosis (DVT) prophylaxis. Subcutaneous heparin. DISPOSITION: We will see how she does over the next 24-48 hours with modification of her psychiatric medications. She currently does not describe having any suicidal ideation. No audiovisual hallucinations, and feels that she has improved some since being here. Edited: 01/26/2017 1330
[2017-01-26] MEDS: CitaloPRAM (CeleXA) 10 MG TABLET PO SCH (12:32)
[2017-01-26 14:00] VITALS: BP 130/74
[2017-01-26] MEDS ORDERED: QUEtiapine FUMARATE 50 MG TAB PO SCH (21:00)
[2017-01-26] MEDS: risperiDONE 2 MG TAB PO SCH (21:28)
[2017-01-26] MEDS: OXcarbazepine 300 MG TAB PO SCH (21:28)
[2017-01-26 22:00] VITALS: BP 102/56
[2017-01-27] MEDS: SODIUM CHLORIDE 0.9% INJ 10 ML SYR IV SCH (05:42)
[2017-01-27 06:00] VITALS: BP 123/64
[2017-01-27 06:47] LABS: ALBUMIN 2.7 GM/DL (3.2-5.2); ANION GAP 7 MEQ/L (8-16); BLOOD UREA NITROGEN 13 MG/DL (7-18); CALCIUM LEVEL 8.6 MG/DL (8.8-10.2); CARBON DIOXIDE LEVEL 27 MEQ/L (21-32); CHLORIDE LEVEL 104 MEQ/L (98-107); CREATININE FOR GFR 0.63 MG/DL (0.55-1.02); GLOMERULAR FILTRATION RATE > 60.0 (>39); GLUCOSE, FASTING 86 MG/DL (83-110); POTASSIUM SERUM 3.8 MEQ/L (3.5-5.1); SODIUM LEVEL 138 MEQ/L (136-145)
[2017-01-27] MEDS: SENOKOT S TAB PO SCH (09:06)
[2017-01-27] MEDS: MULTIVITAMINS/MINERALS THERAP 1 TAB PO SCH (09:06)
[2017-01-27] MEDS: CitaloPRAM (CeleXA) 10 MG TABLET PO SCH (09:06)
[2017-01-27] MEDS: FOLIC ACID 1 MG TAB PO SCH (09:06)
[2017-01-27] MEDS: THIAMINE 100 MG TAB PO SCH (09:06)
[2017-01-27] MEDS: ENOXAPARIN 30 MG/0.3 ML SYR (J1650) SC SCH (09:07)
[2017-01-27] MEDS: BISACODYL 10 MG SUPP PR SCH (09:07)
[2017-01-27 09:31] LABS: MEAN CORPUSCULAR HEMOGLOBIN 28.5 pg (27.0-33.0); MEAN CORPUSCULAR HGB CONC 32.7 g/dl (32.0-36.5); MEAN CORPUSCULAR VOLUME 87.1 fl (80.0-96.0); RED CELL DISTRIBUTION WIDTH 12.2 % (11.5-14.5); WHITE BLOOD COUNT 5.5 10^3/uL (4.0-10.0)
[2017-01-27] MEDS ORDERED: FOLI1TAB4 PO (11:43)
[2017-01-27] MEDS ORDERED: QUET5TAB PO (11:43)
[2017-01-27] MEDS ORDERED: THIA100TA PO (11:43)
[2017-01-27] MEDS ORDERED: CELE10TA PO (11:43)
[2017-01-27] MEDS ORDERED: VITMTA PO (11:43)
--- NOTE | 2017-01-27 11:56 | DS.PDOC ---
Discharge Summary General Date of Admission Jan 13, 2017 at 13:18 Date of Discharge Jan 27, 2017 Primary Care Physician: Hong Michel Attending Physician: HONG ANTONIO DO Specialist/Consultants Involve: ANNY GRAVES MD Discharge Summary PROCEDURES PERFORMED DURING STAY: None. ADMITTING DIAGNOSES / DISCHARGE DIAGNOSIS: 1. . Altered mentation with metabolic encephalopathy: Resolved 2. Sepsis with leukocytosis and tachycardia: Resolved. 3. Lactic acidosis, resolved. 4. Rhabdomyolysis secondary to dehydration: Resolved. 5. Acute kidney injury secondary dehydration: Resolved. 6. Right constipation. 7. Borderline personality disorder with Bipolar disorder. 8. Hypertension. 9. Dyslipidemia. 10. Eczema. COMPLICATIONS/CHIEF COMPLAINT: Altered Mental Status Uti. HISTORY OF PRESENT ILLNESS: 76-year-old female patient with underlying medical history of borderline personality disorder, bipolar disorder, hypertension, and dyslipidemia. The patient was brought to the hospital by her for progressively worsening confusion. As per the , since one week ago, the patient had stopped taking all her psychiatric medications, Risperdal, Trileptal and mirtazapine and the patient has been getting progressively more confused. Furthermore, the patient about 2-3 days ago stopped taking oral food and fluids altogether with progressively worsening weakness and the patient used to be ambulatory a lot, but for the past two days the patient has been to weak to ambulate up the stairs or move around. Subsequently, the patient was brought to the emergency room. Initially seeing the patient without the 's presence, the patient does not give any history. The patient follows simple commands, knows her name, but refuses to answer any additional questions. Denies any chest pain, pressure or discomfort. History was significantly limited, but upon the entering, the patient started screaming that she did not tell the provider any information. Furthermore, she insisted the leave the room. She stated that she does not want to see him and she stated that it is all about him, not about her. The stated that he is also concerned that she might have a urinary tract infection. The patient had similar symptoms prior but not to this extent due to a urinary tract infection. Furthermore, the patient at baseline has some essential tremors, but for the past 2-3 days it has been worsened, especially when she is agitated and anxious, she starts shaking, bilateral upper extremities. No history of seizures reported. No focal neurological weakness.. HOSPITAL COURSE: Macrobid was discontinued. She was given IV fluids for support avoided nephrotoxic drugs. She gradually improved over the next few days mentation improved. An physical therapy felt that she is back to her baseline.. DISCHARGE MEDICATIONS: Please see below. ALLERGIES: Please see below. PHYSICAL EXAMINATION ON DISCHARGE: VITAL SIGNS: Please see below. GENERAL: No acute distress HEENT: Unremarkable NECK: Unremarkable CARDIOVASCULAR EXAMINATION: Regular rate and rhythm RESPIRATORY EXAMINATION: Clear ABDOMINAL EXAMINATION: Soft, nontender, nondistended, positive bowel sounds EXTREMITIES: Unremarkable SKIN: Negative NEUROLOGICAL EXAMINATION: Grossly intact PSYCHIATRIC EXAMINATION: No acute issues LABORATORY DATA: Please see below. IMAGING: #1. Brain MRI shows minimal ischemic changes, mild volume loss. #2. Cervical spine MRI with spondylosis, low doses. No spondylo-listhesis. #3. CT abdomen and pelvis with contrast sigmoid diverticula without acute diverticulitis, mild fecal impaction of the rectum was noted at the time. No acute findings. #4. CT of the head without contrast on admission: Some mild cerebral atrophy proportionate ventriculomegaly unchanged small vessel white matter changes, chronic and stable. No acute infarct, hemorrhage, mass or mass effect, or edema. PROGNOSIS: Good ACTIVITY: As tolerated. DIET: Regular. DISPOSITION: Discharged home. DISCHARGE INSTRUCTIONS: 1. Follow-up with PCP 1-2 weeks, see psychiatry in the next week for follow-up to medication changes.. 2. Seek medical attention should symptoms worsen. Transitional care: Psychiatric drugs have been modified recommendations by Dr. Graves. She had previously been on Macrodantin by her primary care provider for urinary tract infection. Advisable for this patient to avoid Macrodantin in the future DISCHARGE CONDITION: Stable. TIME SPENT ON DISCHARGE: Greater than 35 minutes. Vital Signs/I&Os Vital Signs Date Time Temp Pulse Resp B/P (MAP) Pulse Ox O2 Delivery O2 Flow Rate FiO2 01/27/17 06:00 97.0 97 19 123/64 (83) 93 Room Air I&O- Last 24 Hours up to 6 AM 01/28/17 06:00 Intake Total 120 ml Balance 120 ml Laboratory Data Labs 24H Laboratory Tests 2 01/27/17 05:41: Blood Urea Nitrogen 13, Creatinine 0.63, Sodium Level 138, Potassium Level 3.8, Chloride Level 104, Carbon Dioxide Level 27, Anion Gap 7L, Glomerular Filtration Rate > 60.0, Calcium Level 8.6L, Phosphorus Level 3.0, Albumin 2.7L CBC/BMP Laboratory Tests 01/27/17 05:41 Anion Gap 7 L 01/27/17 09:14 Red Blood Count 4.04, Mean Corpuscular Volume 87.1, Mean Corpuscular Hemoglobin 28.5, Mean Corpuscular Hemoglobin Concent 32.7, Red Cell Distribution Width 12.2 Discharge Medications Scheduled Citalopram Hydrobromide (Celexa) 10 Mg Tab, 10 MG PO DAILY Folic Acid (Folic Acid) 1 Mg Tab, 1 MG PO DAILY Mirtazapine (Mirtazapine) 15 Mg Tab, 15 MG PO QHS, (Reported) Multivitamins *[facility] STOCKED* (Thera M Plus *[facility] STOCKED*) 1 Tab Tab, 1 TAB PO DAILY Oxcarbazepine (Oxcarbazepine) 300 Mg Tab, 300 MG PO QHS, (Reported) Quetiapine Fumerate (Quetiapine Fumarate) 50 Mg Tab, 50 MG PO QHS Thiamine Hcl (Thiamine Hcl) 100 Mg Tab, 100 MG PO DAILY Miscellaneous Medications [Patient Comment] , (Reported) OBTAINED LIST FROM OFFICE APPT FROM 12/24/16 Allergies Coded Allergies: Penicillins (Verified Allergy, Severe, swelling in throat, 11/19/16) Latex (Verified Adverse Reaction, Mild, itching, 01/13/17) HONG ANTONIO DO Jan 27, 2017 11:56
[2017-02-12] MEDS ORDERED: NITR100C2 PO (15:06)
[2017-02-12] MEDS ORDERED: PATIENT COMMENT (15:08)
[2017-02-27] MEDS ORDERED: PERP2TA PO (11:28)
[2017-02-27] MEDS ORDERED: CELE10TA PO (11:28)
[2017-02-27] MEDS ORDERED: MACR100C43 PO (11:28)
[2017-02-27] MEDS ORDERED: BENZ0.5T PO (11:28)
[2017-02-27] MEDS ORDERED: NYST50SS SS (11:28)
[2017-03-04] MEDS ORDERED: OLAN5TAB PO (11:44)
[2017-03-04] MEDS ORDERED: FLUC10TA PO (11:44)
[2017-03-04] MEDS ORDERED: OXCA150T PO (11:44)
[2017-03-05] MEDS ORDERED: NYST50SS SS (16:11)
== END 2017-01-27 15:12 | disposition home or self-care (01) | DRG 871 ==
LOC: EDBD 08:05 → M ED 08:05 → M ED INP 13:18 → M PCU 19:58 → M MSPAV 01-18 14:06
PROVIDERS: ADMIT Hospitalist; ATTEND Hospitalist
PROC: 02HV33Z Insertion of Infusion Device into Superior Vena Cava, Percutaneous Approach (ICD-10-PCS; principal; 2017-01-17)
DX: A41.9 Sepsis, unspecified organism (principal); G93.41 Metabolic encephalopathy; N17.9 Acute kidney failure, unspecified; M62.82 Rhabdomyolysis; E87.2 Acidosis; E87.0 Hyperosmolality and hypernatremia; F32.2 Major depressive disorder, single episode, severe without psychotic features; G21.19 Other drug induced secondary parkinsonism; F29 Unspecified psychosis not due to a substance or known physiological condition; E78.5 Hyperlipidemia, unspecified; F60.3 Borderline personality disorder; I10 Essential (primary) hypertension; Z91.14 Patient's other noncompliance with medication regimen; Z91.128 Patient's intentional underdosing of medication regimen for other reason; Z91.040 Latex allergy status; Z88.0 Allergy status to penicillin; Z88.8 Allergy status to other drugs, medicaments and biological substances; Z90.710 Acquired absence of both cervix and uterus; Z79.899 Other long term (current) drug therapy

== ENCOUNTER 2017-02-07 15:53 | Emergency (ER) | payer OTHER ==
[~2017-02-07] VITALS: Ht 163.8 cm; Wt 81.8 kg
[~2017-02-07 15:53] MED LIST changes: +CELE10TA PO; +FOLI1TAB4 PO; +MIRT15TA3 PO; +OXCA300T PO; +PATIENT COMMENT; +QUET5TAB PO; +RISP2TAB3 PO; +THIA100TA PO; +VITMTA PO
[2017-02-07] MEDS ORDERED: VITMTA PO (18:07)
[2017-02-07] MEDS ORDERED: QUET5TAB PO (18:07)
[2017-02-07] MEDS ORDERED: OXCA300T PO (18:07)
[2017-02-07] MEDS ORDERED: THIA100TA PO (18:07)
[2017-02-07] MEDS ORDERED: CITA10TA5 PO (18:07)
[2017-02-07] MEDS ORDERED: FOLI1TAB4 PO (18:07)
[2017-02-07 18:21] VITALS: BP 117/74
[2017-02-12] MEDS ORDERED: NITR100C2 PO (15:06)
[2017-02-12] MEDS ORDERED: PATIENT COMMENT (15:08)
[2017-02-27] MEDS ORDERED: NYST50SS SS (11:28)
[2017-02-27] MEDS ORDERED: CELE10TA PO (11:28)
[2017-02-27] MEDS ORDERED: MACR100C43 PO (11:28)
[2017-02-27] MEDS ORDERED: PERP2TA PO (11:28)
[2017-02-27] MEDS ORDERED: BENZ0.5T PO (11:28)
[2017-03-04] MEDS ORDERED: FLUC10TA PO (11:44)
[2017-03-04] MEDS ORDERED: OLAN5TAB PO (11:44)
[2017-03-04] MEDS ORDERED: OXCA150T PO (11:44)
[2017-03-05] MEDS ORDERED: NYST50SS SS (16:11)
== END 2017-02-07 18:24 | disposition home or self-care (01) ==
LOC: M ED 15:53
DX: G47.00 Insomnia, unspecified (principal); I10 Essential (primary) hypertension; F33.9 Major depressive disorder, recurrent, unspecified; F41.9 Anxiety disorder, unspecified; F60.3 Borderline personality disorder; Z79.899 Other long term (current) drug therapy; Z91.040 Latex allergy status; Z88.0 Allergy status to penicillin

== ENCOUNTER → 2017-02-08 | Outpatient (REF) | payer OTHER ==
[~2017-02-08] MED LIST changes: +BENZ0.5T PO; +CITA10TA5 PO; +FLUC10TA PO; +MACR100C43 PO; +NITR100C2 PO; +NYST50SS SS; +OLAN5TAB PO; +OXCA150T PO; +PERP2TA PO
== END ==
LOC: M SFHCCLAY 11:29
PROVIDERS: ATTEND Family Medicine
DX: R35.0 Frequency of micturition (principal)

== ENCOUNTER → 2017-03-29 | Outpatient (REF) | payer OTHER ==
[2017-03-29 11:31] LABS: BASO % 0.4 % (0.0-1.0); EOS # 0.1 10^3/uL (0.0-0.50); EOS % 1.2 % (0.0-3.0); IMMATURE GRANULOCYTE % 0.2 % (0-0); LYMPH # 1.3 10^3/uL (1.5-4.5); MEAN CORPUSCULAR HEMOGLOBIN 28.3 pg (27.0-33.0); MEAN CORPUSCULAR HGB CONC 32.1 g/dl (32.0-36.5); MEAN CORPUSCULAR VOLUME 88.1 fl (80.0-96.0); MONO # 0.3 10^3/uL (0.0-0.8); MONO % 6.2 % (0.0-5.0); NEUTROPHILS # 3.2 10^3/uL (1.8-7.7); PLATELET COUNT, AUTOMATED 269 10^3/uL (150-450); RED CELL DISTRIBUTION WIDTH 13.4 % (11.5-14.5); WHITE BLOOD COUNT 4.9 10^3/uL (4.0-10.0)
[2017-03-29 12:14] LABS: ALBUMIN 3.5 GM/DL (3.2-5.2); ALBUMIN/GLOBULIN RATIO 1.21 (1.00-1.93); ALKALINE PHOSPHATASE 63 U/L (45-117); ALT/SGPT 14 U/L (12-78); ANION GAP 11 MEQ/L (8-16); AST/SGOT 9 U/L (7-37); BILIRUBIN,TOTAL 0.5 MG/DL (0.2-1.0); BLOOD UREA NITROGEN 12 MG/DL (7-18); CALCIUM LEVEL 9.5 MG/DL (8.8-10.2); CARBON DIOXIDE LEVEL 29 MEQ/L (21-32); CHLORIDE LEVEL 100 MEQ/L (98-107); GLOMERULAR FILTRATION RATE > 60.0 (>39); GLUCOSE, FASTING 89 MG/DL (83-110); POTASSIUM SERUM 4.6 MEQ/L (3.5-5.1); SODIUM LEVEL 140 MEQ/L (136-145); TOTAL PROTEIN 6.4 GM/DL (6.4-8.2)
== END ==
LOC: M SFHCCLAY 07:58
PROVIDERS: ATTEND Family Medicine
DX: R63.4 Abnormal weight loss (principal); E86.0 Dehydration

== ENCOUNTER → 2017-04-05 | Outpatient (REF) | payer OTHER ==
[2017-04-05 18:24] LABS: ALBUMIN 3.6 GM/DL (3.2-5.2); ALBUMIN/GLOBULIN RATIO 1.24 (1.00-1.93); ALKALINE PHOSPHATASE 69 U/L (45-117); ALT/SGPT 16 U/L (12-78); ANION GAP 7 MEQ/L (8-16); AST/SGOT 13 U/L (7-37); BILIRUBIN,TOTAL 0.4 MG/DL (0.2-1.0); BLOOD UREA NITROGEN 16 MG/DL (7-18); CALCIUM LEVEL 9.6 MG/DL (8.8-10.2); CARBON DIOXIDE LEVEL 30 MEQ/L (21-32); CHLORIDE LEVEL 104 MEQ/L (98-107); CREATININE FOR GFR 0.91 MG/DL (0.55-1.02); GLOMERULAR FILTRATION RATE > 60.0 (>39); GLUCOSE, FASTING 79 MG/DL (83-110); POTASSIUM SERUM 4.6 MEQ/L (3.5-5.1); SODIUM LEVEL 141 MEQ/L (136-145); TOTAL PROTEIN 6.5 GM/DL (6.4-8.2)
[2017-04-05 19:02] LABS: BASO % 0.6 % (0.0-1.0); EOS % 0.7 % (0.0-3.0); IMMATURE GRANULOCYTE % 0.2 % (0-0); LYMPH # 1.3 10^3/uL (1.5-4.5); LYMPH % 23.1 % (24.0-44.0); MEAN CORPUSCULAR HEMOGLOBIN 28.1 pg (27.0-33.0); MEAN CORPUSCULAR HGB CONC 31.6 g/dl (32.0-36.5); MEAN CORPUSCULAR VOLUME 88.7 fl (80.0-96.0); MONO # 0.3 10^3/uL (0.0-0.8); MONO % 5.3 % (0.0-5.0); NEUTROPHILS # 3.8 10^3/uL (1.8-7.7); NEUTROPHILS % 70.1 % (36.0-66.0); PLATELET COUNT, AUTOMATED 291 10^3/uL (150-450); RED CELL DISTRIBUTION WIDTH 13.5 % (11.5-14.5); WHITE BLOOD COUNT 5.5 10^3/uL (4.0-10.0)
== END ==
LOC: M SFHCCLAY 11:09
PROVIDERS: ATTEND Family Medicine
DX: R63.4 Abnormal weight loss (principal); E86.0 Dehydration
CPT/HCPCS: 80053; 85025; G0463

== ENCOUNTER 2017-04-10 07:04 | Inpatient (IN) | payer OTHER ==
[2017-04-10 07:41] LABS: BEDSIDE GLUCOSE 116 MG/DL (83-110)
[2017-04-10] MEDS: NS 1,000 ML IV ×3 (07:45→13:40)
[2017-04-10 07:50] LABS: BASO % 0.2 % (0.0-1.0); HEMATOCRIT 41.3 % (36.0-47.0); HEMOGLOBIN 13.1 g/dl (12.0-16.0); IMMATURE GRANULOCYTE # 0.1 10^3/uL (0-0); IMMATURE GRANULOCYTE % 0.7 % (0-0); LYMPH # 0.5 10^3/uL (1.5-4.5); LYMPH % 2.7 % (24.0-44.0); MEAN CORPUSCULAR HEMOGLOBIN 28.1 pg (27.0-33.0); MEAN CORPUSCULAR HGB CONC 31.7 g/dl (32.0-36.5); MEAN CORPUSCULAR VOLUME 88.4 fl (80.0-96.0); MONO # 0.3 10^3/uL (0.0-0.8); MONO % 1.9 % (0.0-5.0); NEUTROPHILS # 17.1 10^3/uL (1.8-7.7); NEUTROPHILS % 94.5 % (36.0-66.0); PLATELET COUNT, AUTOMATED 340 10^3/uL (150-450); RED BLOOD COUNT 4.67 10^6/uL (4.00-5.40); RED CELL DISTRIBUTION WIDTH 14.1 % (11.5-14.5); WHITE BLOOD COUNT 18.1 10^3/uL (4.0-10.0)
[2017-04-10 08:02] LABS: ACETAMINOPHEN LEVEL < 2.0 UG/ML (10.0-30.0); ALBUMIN/GLOBULIN RATIO 1.25 (1.00-1.93); ALKALINE PHOSPHATASE 60 U/L (45-117); ALT/SGPT 21 U/L (12-78); ANION GAP 22 MEQ/L (8-16); AST/SGOT 29 U/L (7-37); BILIRUBIN,DIRECT 0.2 MG/DL (0.0-0.2); BILIRUBIN,TOTAL 0.7 MG/DL (0.2-1.0); BLOOD UREA NITROGEN 28 MG/DL (7-18); CALCIUM LEVEL 9.8 MG/DL (8.8-10.2); CARBON DIOXIDE LEVEL 15 MEQ/L (21-32); CHLORIDE LEVEL 111 MEQ/L (98-107); CK-MB VALUE MASS 7.8 NG/ML (0.0-3.6); CPK CREATINE PHOSPHOKINASE 608 U/L (26-192); CREATININE FOR GFR 3.35 MG/DL (0.55-1.02); GLOMERULAR FILTRATION RATE 14.3 (>39); GLUCOSE, FASTING 120 MG/DL (83-110); LIPASE 71 U/L (73-393); MB/CK RELATIVE INDEX 1.28 (< OR =4); POTASSIUM SERUM 3.8 MEQ/L (3.5-5.1); SALICYLATE LEVEL < 1.7 MG/DL (5.0-30.0); SODIUM LEVEL 148 MEQ/L (136-145); TOTAL PROTEIN 7.2 GM/DL (6.4-8.2); TROPONIN I 0.28 NG/ML (< 0.10)
[2017-04-10 08:27] LABS: C REACTIVE PROTEIN QUANTITATIV 0.47 MG/DL (0.00-0.30)
[2017-04-10 08:27] LABS: AMYLASE 43 U/L (25-115)
[2017-04-10 08:30] LABS: ABG BASE EXCESS -5.1 (-2.0-2.0); ABG HCO3 19.1 MEQ/L (22.0-26.0); ABG O2 SATURATION 43.7 % (95.0-99.0); ABG PARTIAL PRESSURE CO2 33.1 mmHg (35.0-45.0); ABG STANDARD HCO3 19.2 MEQ/L (22.0-26.0); ABG TOTAL CO2 20.1 MEQ/L (23.0-31.0); ABG pH (ARTERIAL) 7.379 UNITS (7.350-7.450)
[2017-04-10 08:31] LABS: INR 1.43; PROTHROMBIN TIME 17.8 SECONDS (12.4-14.5)
[2017-04-10 08:32] LABS: PARTIAL THROMBOPLASTIN TIME 33.4 SECONDS (26.8-37.9)
[2017-04-10 08:37] LABS: ABG PARTIAL PRESSURE O2 26.3 mmHg (75.0-100.0)
[2017-04-10] MEDS: CitaloPRAM (CeleXA) 10 MG TABLET PO ×2 (09:00→15:58)
[2017-04-10 09:27] LABS: AMORPHOUS SEDIMENT MODERATE (NEGATIVE); APPEARANCE, URINE CLOUDY (CLEAR); BACTERIA, URINE AUTO 1+ (NEGATIVE); BILIRUBIN, URINE AUTO NEGATIVE (NEGATIVE); BLOOD, URINE BLOOD 1+ (NEGATIVE); COLOR, URINE AMBER (YELLOW); GLUCOSE, URINE (UA) AUTO NEGATIVE (NEGATIVE); KETONE, URINE AUTO 1+ mg/dL (NEGATIVE); LEUKOCYTE ESTERASE, URINE AUTO TRACE (NEGATIVE); MUCUS, URINE SMALL (NEGATIVE); NITRITE, URINE AUTO NEGATIVE (NEGATIVE); PROTEIN, URINE AUTO 2+ mg/dL (NEGATIVE); RBC, URINE AUTO 3 /HPF (0-3); SPECIFIC GRAVITY URINE AUTO 1.021 (1.002-1.035); SQUAMOUS EPITHELIAL CELL UR AU 1 /HPF (0-6); WBC, URINE AUTO 12 /HPF (0-3)
[2017-04-10] MEDS: CEFEPIME HCL 2 GM in APPROPRIATE DILUENT 1 EA IV (09:30)
[2017-04-10] MEDS: DILUENT IV (09:42)
[2017-04-10] MEDS: NS IV (09:42)
[2017-04-10 13:16] LABS: ANION GAP 12 MEQ/L (8-16); BLOOD UREA NITROGEN 28 MG/DL (7-18); CALCIUM LEVEL 8.3 MG/DL (8.8-10.2); CARBON DIOXIDE LEVEL 20 MEQ/L (21-32); CHLORIDE LEVEL 118 MEQ/L (98-107); CPK CREATINE PHOSPHOKINASE 898 U/L (26-192); CREATININE FOR GFR 2.42 MG/DL (0.55-1.02); GLOMERULAR FILTRATION RATE 20.8 (>39); GLUCOSE, FASTING 117 MG/DL (83-110); POTASSIUM SERUM 3.7 MEQ/L (3.5-5.1); SODIUM LEVEL 150 MEQ/L (136-145); TROPONIN I 0.77 NG/ML (< 0.10)
[2017-04-10 13:17] LABS: CK-MB VALUE MASS 12.9 NG/ML (0.0-3.6); MB/CK RELATIVE INDEX 1.43 (< OR =4)
[2017-04-10 13:19] LABS: LACTIC ACID SEPSIS PROTOCOL 2.1 MMOL/L (0.4-2.0)
[2017-04-10] MEDS: ASPIRIN 325 MG TAB PO ×2 (13:47→15:58)
[2017-04-10] MEDS: FLUCONAZOLE 100 MG in APPROPRIATE DILUENT 1 EA IV (17:44)
[2017-04-10 18:25] LABS: TROPONIN I 0.95 NG/ML (< 0.10)
[2017-04-10 18:35] LABS: CK-MB VALUE MASS 12.6 NG/ML (0.0-3.6); CPK CREATINE PHOSPHOKINASE 1103 U/L (26-192); MB/CK RELATIVE INDEX 1.14 (< OR =4)
[2017-04-10] MEDS: OLANZapine 5 MG TAB PO (20:14)
[2017-04-10] MEDS: HEPARIN SOD (PORCINE) 5000 UNITS/ML VIAL SQ (20:14)
[2017-04-10] MEDS: OXcarbazepine 150 MG TAB PO (20:14)
[2017-04-11 00:29] LABS: TROPONIN I 0.84 NG/ML (< 0.10)
[2017-04-11 00:30] LABS: CK-MB VALUE MASS 12.2 NG/ML (0.0-3.6)
[2017-04-11 00:57] LABS: CPK CREATINE PHOSPHOKINASE 1120 U/L (26-192); MB/CK RELATIVE INDEX 1.08 (< OR =4)
[2017-04-11] MEDS: NS 1,000 ML IV ×2 (01:30→14:44)
[2017-04-11] MEDS: CitaloPRAM (CeleXA) 10 MG TABLET PO ×2 (09:00→09:30)
[2017-04-11] MEDS: HEPARIN SOD (PORCINE) 5000 UNITS/ML VIAL SQ ×3 (09:00→20:43)
[2017-04-11] MEDS: CEFEPIME HCL 2 GM in APPROPRIATE DILUENT 1 EA IV (12:47)
[2017-04-11 12:52] LABS: HEMATOCRIT 38.1 % (36.0-47.0); HEMOGLOBIN 11.9 g/dl (12.0-16.0); MEAN CORPUSCULAR HEMOGLOBIN 28.1 pg (27.0-33.0); MEAN CORPUSCULAR HGB CONC 31.2 g/dl (32.0-36.5); MEAN CORPUSCULAR VOLUME 90.1 fl (80.0-96.0); PLATELET COUNT, AUTOMATED 242 10^3/uL (150-450); RED BLOOD COUNT 4.23 10^6/uL (4.00-5.40); RED CELL DISTRIBUTION WIDTH 14.4 % (11.5-14.5); WHITE BLOOD COUNT 13.5 10^3/uL (4.0-10.0)
[2017-04-11 13:14] LABS: ANION GAP 11 MEQ/L (8-16); BLOOD UREA NITROGEN 28 MG/DL (7-18); CALCIUM LEVEL 8.6 MG/DL (8.8-10.2); CARBON DIOXIDE LEVEL 23 MEQ/L (21-32); CHLORIDE LEVEL 119 MEQ/L (98-107); CREATININE FOR GFR 1.06 MG/DL (0.55-1.02); GLOMERULAR FILTRATION RATE 53.8 (>39); GLUCOSE, FASTING 90 MG/DL (83-110); MAGNESIUM LEVEL 1.9 MG/DL (1.8-2.4); POTASSIUM SERUM 3.3 MEQ/L (3.5-5.1); SODIUM LEVEL 153 MEQ/L (136-145)
[2017-04-11] MEDS: NYSTATIN 100,000 UNITS/GM TOPICAL PWD 15 GM TOP ×2 (14:45→20:43)
[2017-04-11] MEDS: FLUCONAZOLE 100 MG in APPROPRIATE DILUENT 1 EA IV (16:48)
[2017-04-11] MEDS: KCL 20MEQ IN D5W 1000ML 1,000 ML IV (16:48)
[2017-04-11] MEDS: OLANZapine 5 MG TAB PO (20:43)
[2017-04-11] MEDS: OXcarbazepine 150 MG TAB PO (20:43)
[2017-04-12 05:07] LABS: HEMATOCRIT 36.7 % (36.0-47.0); HEMOGLOBIN 11.6 g/dl (12.0-16.0); MEAN CORPUSCULAR HGB CONC 31.6 g/dl (32.0-36.5); MEAN CORPUSCULAR VOLUME 88.6 fl (80.0-96.0); PLATELET COUNT, AUTOMATED 251 10^3/uL (150-450); RED BLOOD COUNT 4.14 10^6/uL (4.00-5.40); RED CELL DISTRIBUTION WIDTH 13.9 % (11.5-14.5); WHITE BLOOD COUNT 10.1 10^3/uL (4.0-10.0)
[2017-04-12 05:22] LABS: ANION GAP 9 MEQ/L (8-16); BLOOD UREA NITROGEN 20 MG/DL (7-18); CALCIUM LEVEL 8.2 MG/DL (8.8-10.2); CARBON DIOXIDE LEVEL 24 MEQ/L (21-32); CHLORIDE LEVEL 116 MEQ/L (98-107); CREATININE FOR GFR 0.82 MG/DL (0.55-1.02); GLOMERULAR FILTRATION RATE > 60.0 (>39); GLUCOSE, FASTING 106 MG/DL (83-110); MAGNESIUM LEVEL 1.7 MG/DL (1.8-2.4); POTASSIUM SERUM 3.3 MEQ/L (3.5-5.1); SODIUM LEVEL 149 MEQ/L (136-145)
[2017-04-12] MEDS: POTASSIUM CHLORIDE 10 MEQ SR TABLET PO (08:55)
[2017-04-12] MEDS: MAG SULF 1GM/100ML (MAG RUN) 1 GM in APPROPRIATE DILUENT 1 EA IV (08:56)
[2017-04-12] MEDS: HEPARIN SOD (PORCINE) 5000 UNITS/ML VIAL SQ ×2 (08:56→21:02)
[2017-04-12] MEDS: CitaloPRAM (CeleXA) 10 MG TABLET PO (08:56)
[2017-04-12] MEDS: NYSTATIN 100,000 UNITS/GM TOPICAL PWD 15 GM TOP ×2 (08:57→21:00)
[2017-04-12] MEDS: CEFEPIME HCL 2 GM in APPROPRIATE DILUENT 1 EA IV (08:57)
[2017-04-12] MEDS: FLUCONAZOLE 100 MG in APPROPRIATE DILUENT 1 EA IV (18:03)
[2017-04-12] MEDS: OXcarbazepine 150 MG TAB PO (21:02)
[2017-04-12] MEDS: OLANZapine 5 MG TAB PO (21:02)
[2017-04-13 06:03] LABS: HEMATOCRIT 38.9 % (36.0-47.0); HEMOGLOBIN 12.4 g/dl (12.0-16.0); MEAN CORPUSCULAR HEMOGLOBIN 27.7 pg (27.0-33.0); MEAN CORPUSCULAR HGB CONC 31.9 g/dl (32.0-36.5); MEAN CORPUSCULAR VOLUME 86.8 fl (80.0-96.0); PLATELET COUNT, AUTOMATED 285 10^3/uL (150-450); RED BLOOD COUNT 4.48 10^6/uL (4.00-5.40); RED CELL DISTRIBUTION WIDTH 13.8 % (11.5-14.5); WHITE BLOOD COUNT 7.5 10^3/uL (4.0-10.0)
[2017-04-13 06:17] LABS: ANION GAP 7 MEQ/L (8-16); BLOOD UREA NITROGEN 13 MG/DL (7-18); CALCIUM LEVEL 8.5 MG/DL (8.8-10.2); CARBON DIOXIDE LEVEL 28 MEQ/L (21-32); CHLORIDE LEVEL 110 MEQ/L (98-107); CREATININE FOR GFR 0.63 MG/DL (0.55-1.02); GLOMERULAR FILTRATION RATE > 60.0 (>39); GLUCOSE, FASTING 84 MG/DL (83-110); MAGNESIUM LEVEL 1.8 MG/DL (1.8-2.4); POTASSIUM SERUM 4.1 MEQ/L (3.5-5.1); SODIUM LEVEL 145 MEQ/L (136-145)
[2017-04-13] MEDS: CitaloPRAM (CeleXA) 10 MG TABLET PO (09:06)
[2017-04-13] MEDS: CEFEPIME HCL 2 GM in APPROPRIATE DILUENT 1 EA IV (09:07)
[2017-04-13] MEDS: HEPARIN SOD (PORCINE) 5000 UNITS/ML VIAL SQ ×2 (09:07→21:04)
[2017-04-13] MEDS: NYSTATIN 100,000 UNITS/GM TOPICAL PWD 15 GM TOP ×2 (09:08→21:00)
[2017-04-13] MEDS: FLUCONAZOLE 100 MG in APPROPRIATE DILUENT 1 EA IV (17:00)
[2017-04-13] MEDS: OLANZapine 5 MG TAB PO (21:04)
[2017-04-13] MEDS: OXcarbazepine 150 MG TAB PO (21:04)
[2017-04-13] MEDS ORDERED: HALOPERIDOL DECANOATE 100 MG/ML VIAL (J1631) IM (22:30)
[2017-04-13] MEDS: HALOPERIDOL 5 MG/ML VIAL (J1630) IM (22:34)
[2017-04-14 06:06] LABS: HEMOGLOBIN 12.6 g/dl (12.0-16.0); MEAN CORPUSCULAR HEMOGLOBIN 27.6 pg (27.0-33.0); MEAN CORPUSCULAR HGB CONC 31.5 g/dl (32.0-36.5); MEAN CORPUSCULAR VOLUME 87.5 fl (80.0-96.0); PLATELET COUNT, AUTOMATED 271 10^3/uL (150-450); RED BLOOD COUNT 4.57 10^6/uL (4.00-5.40); WHITE BLOOD COUNT 6.9 10^3/uL (4.0-10.0)
[2017-04-14 06:37] LABS: ANION GAP 10 MEQ/L (8-16); BLOOD UREA NITROGEN 17 MG/DL (7-18); CALCIUM LEVEL 8.8 MG/DL (8.8-10.2); CARBON DIOXIDE LEVEL 27 MEQ/L (21-32); CHLORIDE LEVEL 110 MEQ/L (98-107); CREATININE FOR GFR 0.77 MG/DL (0.55-1.02); GLOMERULAR FILTRATION RATE > 60.0 (>39); GLUCOSE, FASTING 79 MG/DL (83-110); MAGNESIUM LEVEL 1.7 MG/DL (1.8-2.4); SODIUM LEVEL 147 MEQ/L (136-145)
[2017-04-14] MEDS: CEFEPIME HCL 2 GM in APPROPRIATE DILUENT 1 EA IV (12:57)
[2017-04-14] MEDS: HEPARIN SOD (PORCINE) 5000 UNITS/ML VIAL SQ ×2 (12:57→20:33)
[2017-04-14] MEDS: CitaloPRAM (CeleXA) 10 MG TABLET PO (12:58)
[2017-04-14] MEDS: NYSTATIN 100,000 UNITS/GM TOPICAL PWD 15 GM TOP ×2 (12:58→20:33)
[2017-04-14] MEDS: FLUCONAZOLE 100 MG in APPROPRIATE DILUENT 1 EA IV (18:01)
[2017-04-14] MEDS: OLANZapine 5 MG TAB PO (20:32)
[2017-04-14] MEDS: OXcarbazepine 150 MG TAB PO (20:32)
[2017-04-15 06:12] LABS: HEMATOCRIT 39.7 % (36.0-47.0); HEMOGLOBIN 12.5 g/dl (12.0-16.0); MEAN CORPUSCULAR HEMOGLOBIN 27.8 pg (27.0-33.0); MEAN CORPUSCULAR HGB CONC 31.5 g/dl (32.0-36.5); MEAN CORPUSCULAR VOLUME 88.2 fl (80.0-96.0); PLATELET COUNT, AUTOMATED 261 10^3/uL (150-450); RED CELL DISTRIBUTION WIDTH 14.1 % (11.5-14.5); WHITE BLOOD COUNT 6.6 10^3/uL (4.0-10.0)
[2017-04-15 06:37] LABS: ANION GAP 9 MEQ/L (8-16); BLOOD UREA NITROGEN 18 MG/DL (7-18); CALCIUM LEVEL 8.5 MG/DL (8.8-10.2); CARBON DIOXIDE LEVEL 26 MEQ/L (21-32); CHLORIDE LEVEL 113 MEQ/L (98-107); CREATININE FOR GFR 0.69 MG/DL (0.55-1.02); GLOMERULAR FILTRATION RATE > 60.0 (>39); GLUCOSE, FASTING 84 MG/DL (83-110); MAGNESIUM LEVEL 1.7 MG/DL (1.8-2.4); POTASSIUM SERUM 3.5 MEQ/L (3.5-5.1); SODIUM LEVEL 148 MEQ/L (136-145)
[2017-04-15 09:20] LABS: OSMOLALITY SERUM 304 MOSM/KG (280-301)
[2017-04-15] MEDS: CitaloPRAM (CeleXA) 10 MG TABLET PO (09:50)
[2017-04-15] MEDS: HEPARIN SOD (PORCINE) 5000 UNITS/ML VIAL SQ ×2 (09:51→21:18)
[2017-04-15] MEDS: NYSTATIN 100,000 UNITS/GM TOPICAL PWD 15 GM TOP ×2 (09:51→21:00)
[2017-04-15] MEDS: MAG SULF 1GM/100ML (MAG RUN) 1 GM in APPROPRIATE DILUENT 1 EA IV (09:51)
[2017-04-15] MEDS: CEFEPIME HCL 2 GM in APPROPRIATE DILUENT 1 EA IV (11:46)
[2017-04-15] MEDS: FLUCONAZOLE 100 MG in APPROPRIATE DILUENT 1 EA IV (18:02)
[2017-04-15] MEDS: OLANZapine 5 MG TAB PO (21:19)
[2017-04-15] MEDS: OXcarbazepine 150 MG TAB PO (21:19)
[2017-04-16 05:46] LABS: HEMATOCRIT 38.9 % (36.0-47.0); HEMOGLOBIN 12.4 g/dl (12.0-16.0); MEAN CORPUSCULAR HGB CONC 31.9 g/dl (32.0-36.5); MEAN CORPUSCULAR VOLUME 87.8 fl (80.0-96.0); PLATELET COUNT, AUTOMATED 263 10^3/uL (150-450); RED BLOOD COUNT 4.43 10^6/uL (4.00-5.40); RED CELL DISTRIBUTION WIDTH 14.3 % (11.5-14.5); WHITE BLOOD COUNT 6.7 10^3/uL (4.0-10.0)
[2017-04-16 06:10] LABS: ANION GAP 8 MEQ/L (8-16); BLOOD UREA NITROGEN 18 MG/DL (7-18); CALCIUM LEVEL 8.9 MG/DL (8.8-10.2); CARBON DIOXIDE LEVEL 26 MEQ/L (21-32); CHLORIDE LEVEL 114 MEQ/L (98-107); CREATININE FOR GFR 0.54 MG/DL (0.55-1.02); GLOMERULAR FILTRATION RATE > 60.0 (>39); GLUCOSE, FASTING 82 MG/DL (83-110); POTASSIUM SERUM 3.6 MEQ/L (3.5-5.1); SODIUM LEVEL 148 MEQ/L (136-145)
[2017-04-16] MEDS: CEFEPIME HCL 2 GM in APPROPRIATE DILUENT 1 EA IV (09:19)
[2017-04-16] MEDS: HEPARIN SOD (PORCINE) 5000 UNITS/ML VIAL SQ ×2 (09:19→21:45)
[2017-04-16] MEDS: CitaloPRAM (CeleXA) 10 MG TABLET PO (09:19)
[2017-04-16] MEDS: NYSTATIN 100,000 UNITS/GM TOPICAL PWD 15 GM TOP ×2 (09:19→21:46)
[2017-04-16] MEDS: OLANZapine 5 MG TAB PO (21:45)
[2017-04-16] MEDS: OXcarbazepine 150 MG TAB PO (21:45)
[2017-04-17 06:13] LABS: HEMOGLOBIN 11.6 g/dl (12.0-16.0); MEAN CORPUSCULAR HEMOGLOBIN 27.8 pg (27.0-33.0); MEAN CORPUSCULAR HGB CONC 31.4 g/dl (32.0-36.5); MEAN CORPUSCULAR VOLUME 88.5 fl (80.0-96.0); PLATELET COUNT, AUTOMATED 244 10^3/uL (150-450); RED BLOOD COUNT 4.18 10^6/uL (4.00-5.40); RED CELL DISTRIBUTION WIDTH 14.4 % (11.5-14.5); WHITE BLOOD COUNT 7.3 10^3/uL (4.0-10.0)
[2017-04-17 06:34] LABS: ANION GAP 6 MEQ/L (8-16); BLOOD UREA NITROGEN 17 MG/DL (7-18); CALCIUM LEVEL 8.3 MG/DL (8.8-10.2); CARBON DIOXIDE LEVEL 28 MEQ/L (21-32); CHLORIDE LEVEL 114 MEQ/L (98-107); GLOMERULAR FILTRATION RATE > 60.0 (>39); GLUCOSE, FASTING 93 MG/DL (83-110); MAGNESIUM LEVEL 1.6 MG/DL (1.8-2.4); POTASSIUM SERUM 3.6 MEQ/L (3.5-5.1); SODIUM LEVEL 148 MEQ/L (136-145)
[2017-04-17] MEDS: CitaloPRAM (CeleXA) 10 MG TABLET PO (09:48)
[2017-04-17] MEDS: HEPARIN SOD (PORCINE) 5000 UNITS/ML VIAL SQ ×2 (09:49→21:00)
[2017-04-17] MEDS: NYSTATIN 100,000 UNITS/GM TOPICAL PWD 15 GM TOP ×2 (09:49→21:00)
[2017-04-17] MEDS: MAG SULF 1GM/100ML (MAG RUN) 1 GM in APPROPRIATE DILUENT 1 EA IV ×2 (13:09→15:00)
[2017-04-17] MEDS: OXcarbazepine 150 MG TAB PO (21:00)
[2017-04-17] MEDS: OLANZapine 5 MG TAB PO (21:00)
[2017-04-18 05:54] LABS: BASO % 0.7 % (0.0-1.0); EOS # 0.2 10^3/uL (0.0-0.50); HEMATOCRIT 38.4 % (36.0-47.0); HEMOGLOBIN 12.4 g/dl (12.0-16.0); IMMATURE GRANULOCYTE % 0.7 % (0-0); LYMPH # 1.7 10^3/uL (1.5-4.5); LYMPH % 27.7 % (24.0-44.0); MEAN CORPUSCULAR HEMOGLOBIN 28.4 pg (27.0-33.0); MEAN CORPUSCULAR HGB CONC 32.3 g/dl (32.0-36.5); MEAN CORPUSCULAR VOLUME 87.9 fl (80.0-96.0); MONO # 0.7 10^3/uL (0.0-0.8); MONO % 11.2 % (0.0-5.0); NEUTROPHILS # 3.3 10^3/uL (1.8-7.7); NEUTROPHILS % 55.7 % (36.0-66.0); PLATELET COUNT, AUTOMATED 197 10^3/uL (150-450); RED BLOOD COUNT 4.37 10^6/uL (4.00-5.40); RED CELL DISTRIBUTION WIDTH 14.2 % (11.5-14.5)
[2017-04-18 06:15] LABS: ANION GAP 9 MEQ/L (8-16); BLOOD UREA NITROGEN 17 MG/DL (7-18); CALCIUM LEVEL 8.1 MG/DL (8.8-10.2); CARBON DIOXIDE LEVEL 26 MEQ/L (21-32); CHLORIDE LEVEL 109 MEQ/L (98-107); CREATININE FOR GFR 0.53 MG/DL (0.55-1.02); GLOMERULAR FILTRATION RATE > 60.0 (>39); GLUCOSE, FASTING 90 MG/DL (83-110); MAGNESIUM LEVEL 1.7 MG/DL (1.8-2.4); POTASSIUM SERUM 3.3 MEQ/L (3.5-5.1); SODIUM LEVEL 144 MEQ/L (136-145)
[2017-04-18] MEDS: MAG SULF 1GM/100ML (MAG RUN) 1 GM in APPROPRIATE DILUENT 1 EA IV (06:30)
[2017-04-18] MEDS: POTASSIUM CHLORIDE 10 MEQ SR TABLET PO (06:52)
[2017-04-18] MEDS: NYSTATIN 100,000 UNITS/GM TOPICAL PWD 15 GM TOP ×2 (09:00→21:16)
[2017-04-18] MEDS: HEPARIN SOD (PORCINE) 5000 UNITS/ML VIAL SQ ×2 (09:00→21:16)
[2017-04-18] MEDS: CitaloPRAM (CeleXA) 10 MG TABLET PO (09:00)
[2017-04-18] MEDS: OXcarbazepine 150 MG TAB PO ×2 (21:16→21:23)
[2017-04-18] MEDS: OLANZapine 5 MG TAB PO ×2 (21:16→21:23)
[2017-04-19 06:28] LABS: BASO % 0.4 % (0.0-1.0); EOS # 0.2 10^3/uL (0.0-0.50); EOS % 4.2 % (0.0-3.0); HEMATOCRIT 36.3 % (36.0-47.0); HEMOGLOBIN 11.6 g/dl (12.0-16.0); IMMATURE GRANULOCYTE % 0.5 % (0-0); LYMPH # 1.7 10^3/uL (1.5-4.5); MEAN CORPUSCULAR VOLUME 87.5 fl (80.0-96.0); MONO # 0.5 10^3/uL (0.0-0.8); MONO % 9.9 % (0.0-5.0); PLATELET COUNT, AUTOMATED 240 10^3/uL (150-450); RED BLOOD COUNT 4.15 10^6/uL (4.00-5.40); RED CELL DISTRIBUTION WIDTH 14.3 % (11.5-14.5); WHITE BLOOD COUNT 5.5 10^3/uL (4.0-10.0)
[2017-04-19 06:44] LABS: ANION GAP 8 MEQ/L (8-16); BLOOD UREA NITROGEN 12 MG/DL (7-18); CALCIUM LEVEL 8.3 MG/DL (8.8-10.2); CARBON DIOXIDE LEVEL 25 MEQ/L (21-32); CHLORIDE LEVEL 108 MEQ/L (98-107); GLOMERULAR FILTRATION RATE > 60.0 (>39); GLUCOSE, FASTING 84 MG/DL (83-110); MAGNESIUM LEVEL 1.7 MG/DL (1.8-2.4); POTASSIUM SERUM 4.1 MEQ/L (3.5-5.1); SODIUM LEVEL 141 MEQ/L (136-145)
[2017-04-19] MEDS: HEPARIN SOD (PORCINE) 5000 UNITS/ML VIAL SQ ×2 (09:00→20:21)
[2017-04-19] MEDS: NYSTATIN 100,000 UNITS/GM TOPICAL PWD 15 GM TOP ×2 (09:00→20:21)
[2017-04-19] MEDS: CitaloPRAM (CeleXA) 10 MG TABLET PO (09:00)
[2017-04-19] MEDS: MAGNESIUM OXIDE 400 MG TAB (MAG-OX) PO ×2 (09:00→20:20)
[2017-04-19] MEDS: OXcarbazepine 150 MG TAB PO (20:20)
[2017-04-19] MEDS: OLANZapine 5 MG TAB PO (20:20)
[2017-04-20 08:22] LABS: HEMATOCRIT 35.7 % (36.0-47.0); HEMOGLOBIN 11.7 g/dl (12.0-16.0); MEAN CORPUSCULAR HEMOGLOBIN 28.3 pg (27.0-33.0); MEAN CORPUSCULAR HGB CONC 32.8 g/dl (32.0-36.5); MEAN CORPUSCULAR VOLUME 86.4 fl (80.0-96.0); PLATELET COUNT, AUTOMATED 258 10^3/uL (150-450); RED BLOOD COUNT 4.13 10^6/uL (4.00-5.40); RED CELL DISTRIBUTION WIDTH 14.5 % (11.5-14.5); WHITE BLOOD COUNT 4.7 10^3/uL (4.0-10.0)
[2017-04-20 08:37] LABS: ANION GAP 8 MEQ/L (8-16); BLOOD UREA NITROGEN 11 MG/DL (7-18); CALCIUM LEVEL 8.6 MG/DL (8.8-10.2); CARBON DIOXIDE LEVEL 27 MEQ/L (21-32); CHLORIDE LEVEL 106 MEQ/L (98-107); CREATININE FOR GFR 0.45 MG/DL (0.55-1.02); GLOMERULAR FILTRATION RATE > 60.0 (>39); GLUCOSE, FASTING 93 MG/DL (83-110); MAGNESIUM LEVEL 1.8 MG/DL (1.8-2.4); POTASSIUM SERUM 4.1 MEQ/L (3.5-5.1); SODIUM LEVEL 141 MEQ/L (136-145)
[2017-04-20] MEDS: CitaloPRAM (CeleXA) 10 MG TABLET PO (10:02)
[2017-04-20] MEDS: MAGNESIUM OXIDE 400 MG TAB (MAG-OX) PO ×2 (10:03→20:36)
[2017-04-20] MEDS: HEPARIN SOD (PORCINE) 5000 UNITS/ML VIAL SQ ×2 (10:03→20:36)
[2017-04-20] MEDS: NYSTATIN 100,000 UNITS/GM TOPICAL PWD 15 GM TOP ×2 (10:03→20:36)
[2017-04-20] MEDS: SENOKOT S TAB PO ×2 (14:33→20:36)
[2017-04-20] MEDS: OXcarbazepine 150 MG TAB PO (20:36)
[2017-04-20] MEDS: OLANZapine 5 MG TAB PO (20:36)
[2017-04-21 07:45] LABS: HEMATOCRIT 36.9 % (36.0-47.0); HEMOGLOBIN 11.7 g/dl (12.0-16.0); MEAN CORPUSCULAR HEMOGLOBIN 28.3 pg (27.0-33.0); MEAN CORPUSCULAR HGB CONC 31.7 g/dl (32.0-36.5); MEAN CORPUSCULAR VOLUME 89.1 fl (80.0-96.0); PLATELET COUNT, AUTOMATED 214 10^3/uL (150-450); RED BLOOD COUNT 4.14 10^6/uL (4.00-5.40); RED CELL DISTRIBUTION WIDTH 14.6 % (11.5-14.5); WHITE BLOOD COUNT 4.9 10^3/uL (4.0-10.0)
[2017-04-21 08:15] LABS: ANION GAP 8 MEQ/L (8-16); BLOOD UREA NITROGEN 11 MG/DL (7-18); CALCIUM LEVEL 8.6 MG/DL (8.8-10.2); CARBON DIOXIDE LEVEL 29 MEQ/L (21-32); CHLORIDE LEVEL 104 MEQ/L (98-107); CREATININE FOR GFR 0.64 MG/DL (0.55-1.02); GLOMERULAR FILTRATION RATE > 60.0 (>39); GLUCOSE, FASTING 84 MG/DL (83-110); MAGNESIUM LEVEL 1.7 MG/DL (1.8-2.4); POTASSIUM SERUM 4.3 MEQ/L (3.5-5.1); SODIUM LEVEL 141 MEQ/L (136-145)
[2017-04-21] MEDS: MAGNESIUM OXIDE 400 MG TAB (MAG-OX) PO ×2 (09:18→20:48)
[2017-04-21] MEDS: NYSTATIN 100,000 UNITS/GM TOPICAL PWD 15 GM TOP ×2 (09:18→20:48)
[2017-04-21] MEDS: HEPARIN SOD (PORCINE) 5000 UNITS/ML VIAL SQ ×2 (09:18→20:48)
[2017-04-21] MEDS: CitaloPRAM (CeleXA) 10 MG TABLET PO (09:18)
[2017-04-21] MEDS: SENOKOT S TAB PO ×2 (09:18→20:49)
[2017-04-21] MEDS: OLANZapine 5 MG TAB PO (20:48)
[2017-04-21] MEDS: OXcarbazepine 150 MG TAB PO (20:48)
[2017-04-22 05:56] LABS: HEMATOCRIT 35.9 % (36.0-47.0); HEMOGLOBIN 11.3 g/dl (12.0-16.0); MEAN CORPUSCULAR HGB CONC 31.5 g/dl (32.0-36.5); MEAN CORPUSCULAR VOLUME 88.9 fl (80.0-96.0); PLATELET COUNT, AUTOMATED 223 10^3/uL (150-450); RED BLOOD COUNT 4.04 10^6/uL (4.00-5.40); RED CELL DISTRIBUTION WIDTH 14.7 % (11.5-14.5); WHITE BLOOD COUNT 3.9 10^3/uL (4.0-10.0)
[2017-04-22 06:15] LABS: ANION GAP 8 MEQ/L (8-16); BLOOD UREA NITROGEN 8 MG/DL (7-18); CALCIUM LEVEL 8.7 MG/DL (8.8-10.2); CARBON DIOXIDE LEVEL 29 MEQ/L (21-32); CHLORIDE LEVEL 103 MEQ/L (98-107); CREATININE FOR GFR 0.68 MG/DL (0.55-1.02); GLOMERULAR FILTRATION RATE > 60.0 (>39); GLUCOSE, FASTING 100 MG/DL (83-110); POTASSIUM SERUM 4.3 MEQ/L (3.5-5.1); SODIUM LEVEL 140 MEQ/L (136-145)
[2017-04-22] MEDS: SENOKOT S TAB PO ×2 (09:00→21:00)
[2017-04-22] MEDS: CitaloPRAM (CeleXA) 10 MG TABLET PO (09:02)
[2017-04-22] MEDS: MAGNESIUM OXIDE 400 MG TAB (MAG-OX) PO ×2 (09:02→21:00)
[2017-04-22] MEDS: HEPARIN SOD (PORCINE) 5000 UNITS/ML VIAL SQ ×2 (09:02→21:00)
[2017-04-22] MEDS: NYSTATIN 100,000 UNITS/GM TOPICAL PWD 15 GM TOP ×2 (09:03→21:00)
[2017-04-22] MEDS: OXcarbazepine 150 MG TAB PO (21:00)
[2017-04-22] MEDS: OLANZapine 5 MG TAB PO (21:00)
[2017-04-23 06:00] LABS: HEMATOCRIT 34.9 % (36.0-47.0); HEMOGLOBIN 11.2 g/dl (12.0-16.0); MEAN CORPUSCULAR HEMOGLOBIN 28.5 pg (27.0-33.0); MEAN CORPUSCULAR HGB CONC 32.1 g/dl (32.0-36.5); MEAN CORPUSCULAR VOLUME 88.8 fl (80.0-96.0); PLATELET COUNT, AUTOMATED 245 10^3/uL (150-450); RED BLOOD COUNT 3.93 10^6/uL (4.00-5.40); RED CELL DISTRIBUTION WIDTH 14.6 % (11.5-14.5); WHITE BLOOD COUNT 4.5 10^3/uL (4.0-10.0)
[2017-04-23 06:19] LABS: ANION GAP 7 MEQ/L (8-16); BLOOD UREA NITROGEN 10 MG/DL (7-18); CALCIUM LEVEL 8.7 MG/DL (8.8-10.2); CARBON DIOXIDE LEVEL 29 MEQ/L (21-32); CHLORIDE LEVEL 102 MEQ/L (98-107); GLOMERULAR FILTRATION RATE > 60.0 (>39); GLUCOSE, FASTING 86 MG/DL (83-110); POTASSIUM SERUM 4.6 MEQ/L (3.5-5.1); SODIUM LEVEL 138 MEQ/L (136-145)
[2017-04-23] MEDS: NYSTATIN 100,000 UNITS/GM TOPICAL PWD 15 GM TOP ×2 (09:00→21:00)
[2017-04-23] MEDS: SENOKOT S TAB PO (09:00)
[2017-04-23] MEDS: HEPARIN SOD (PORCINE) 5000 UNITS/ML VIAL SQ ×2 (09:51→21:00)
[2017-04-23] MEDS: CitaloPRAM (CeleXA) 10 MG TABLET PO (09:51)
[2017-04-23] MEDS: MAGNESIUM OXIDE 400 MG TAB (MAG-OX) PO ×2 (09:52→21:00)
[2017-04-23] MEDS ORDERED: SENOKOT S TAB PO (15:45)
[2017-04-23] MEDS: OLANZapine 5 MG TAB PO (21:00)
[2017-04-23] MEDS: OXcarbazepine 150 MG TAB PO (21:00)
[2017-04-24 05:48] LABS: HEMATOCRIT 34.9 % (36.0-47.0); HEMOGLOBIN 11.1 g/dl (12.0-16.0); MEAN CORPUSCULAR HEMOGLOBIN 28.2 pg (27.0-33.0); MEAN CORPUSCULAR HGB CONC 31.8 g/dl (32.0-36.5); MEAN CORPUSCULAR VOLUME 88.6 fl (80.0-96.0); PLATELET COUNT, AUTOMATED 168 10^3/uL (150-450); RED BLOOD COUNT 3.94 10^6/uL (4.00-5.40); RED CELL DISTRIBUTION WIDTH 14.6 % (11.5-14.5); WHITE BLOOD COUNT 4.5 10^3/uL (4.0-10.0)
[2017-04-24 06:00] LABS: ANION GAP 5 MEQ/L (8-16); BLOOD UREA NITROGEN 7 MG/DL (7-18); CALCIUM LEVEL 8.7 MG/DL (8.8-10.2); CARBON DIOXIDE LEVEL 29 MEQ/L (21-32); CHLORIDE LEVEL 103 MEQ/L (98-107); CREATININE FOR GFR 0.58 MG/DL (0.55-1.02); GLOMERULAR FILTRATION RATE > 60.0 (>39); GLUCOSE, FASTING 82 MG/DL (83-110); MAGNESIUM LEVEL 2.1 MG/DL (1.8-2.4); POTASSIUM SERUM 4.4 MEQ/L (3.5-5.1); SODIUM LEVEL 137 MEQ/L (136-145)
[2017-04-24] MEDS: NYSTATIN 100,000 UNITS/GM TOPICAL PWD 15 GM TOP ×2 (09:00→21:00)
[2017-04-24] MEDS: HEPARIN SOD (PORCINE) 5000 UNITS/ML VIAL SQ ×2 (09:36→21:00)
[2017-04-24] MEDS: CitaloPRAM (CeleXA) 10 MG TABLET PO (09:36)
[2017-04-24] MEDS: MAGNESIUM OXIDE 400 MG TAB (MAG-OX) PO ×2 (09:36→21:00)
[2017-04-24] MEDS: OLANZapine 5 MG TAB PO (21:00)
[2017-04-24] MEDS: OXcarbazepine 150 MG TAB PO (21:00)
[2017-04-25 05:43] LABS: HEMATOCRIT 33.9 % (36.0-47.0); MEAN CORPUSCULAR HEMOGLOBIN 28.6 pg (27.0-33.0); MEAN CORPUSCULAR HGB CONC 32.4 g/dl (32.0-36.5); MEAN CORPUSCULAR VOLUME 88.1 fl (80.0-96.0); PLATELET COUNT, AUTOMATED 260 10^3/uL (150-450); RED BLOOD COUNT 3.85 10^6/uL (4.00-5.40); RED CELL DISTRIBUTION WIDTH 14.7 % (11.5-14.5); WHITE BLOOD COUNT 4.8 10^3/uL (4.0-10.0)
[2017-04-25 06:02] LABS: ANION GAP 8 MEQ/L (8-16); BLOOD UREA NITROGEN 11 MG/DL (7-18); CALCIUM LEVEL 9.3 MG/DL (8.8-10.2); CARBON DIOXIDE LEVEL 28 MEQ/L (21-32); CHLORIDE LEVEL 102 MEQ/L (98-107); CREATININE FOR GFR 0.64 MG/DL (0.55-1.02); GLOMERULAR FILTRATION RATE > 60.0 (>39); GLUCOSE, FASTING 85 MG/DL (83-110); POTASSIUM SERUM 3.9 MEQ/L (3.5-5.1); SODIUM LEVEL 138 MEQ/L (136-145)
[2017-04-25] MEDS: NYSTATIN 100,000 UNITS/GM TOPICAL PWD 15 GM TOP ×2 (09:00→21:56)
[2017-04-25] MEDS: OXcarbazepine 150 MG TAB PO (10:01)
[2017-04-25] MEDS: CitaloPRAM (CeleXA) 10 MG TABLET PO (10:01)
[2017-04-25] MEDS: OLANZapine 5 MG TAB PO (10:02)
[2017-04-25] MEDS: MAGNESIUM OXIDE 400 MG TAB (MAG-OX) PO ×3 (10:02→21:50)
[2017-04-25] MEDS: HEPARIN SOD (PORCINE) 5000 UNITS/ML VIAL SQ ×3 (10:04→21:50)
[2017-04-26 05:57] LABS: HEMATOCRIT 35.7 % (36.0-47.0); HEMOGLOBIN 11.3 g/dl (12.0-16.0); MEAN CORPUSCULAR HGB CONC 31.7 g/dl (32.0-36.5); MEAN CORPUSCULAR VOLUME 88.4 fl (80.0-96.0); PLATELET COUNT, AUTOMATED 273 10^3/uL (150-450); RED BLOOD COUNT 4.04 10^6/uL (4.00-5.40); RED CELL DISTRIBUTION WIDTH 14.8 % (11.5-14.5); WHITE BLOOD COUNT 5.8 10^3/uL (4.0-10.0)
[2017-04-26 06:12] LABS: ANION GAP 7 MEQ/L (8-16); BLOOD UREA NITROGEN 13 MG/DL (7-18); CALCIUM LEVEL 8.7 MG/DL (8.8-10.2); CARBON DIOXIDE LEVEL 28 MEQ/L (21-32); CHLORIDE LEVEL 104 MEQ/L (98-107); CREATININE FOR GFR 0.64 MG/DL (0.55-1.02); GLOMERULAR FILTRATION RATE > 60.0 (>39); GLUCOSE, FASTING 86 MG/DL (83-110); SODIUM LEVEL 139 MEQ/L (136-145)
[2017-04-26] MEDS: HEPARIN SOD (PORCINE) 5000 UNITS/ML VIAL SQ ×2 (09:00→20:22)
[2017-04-26] MEDS: CitaloPRAM (CeleXA) 10 MG TABLET PO (10:04)
[2017-04-26] MEDS: OXcarbazepine 150 MG TAB PO (10:05)
[2017-04-26] MEDS: MAGNESIUM OXIDE 400 MG TAB (MAG-OX) PO ×2 (10:05→20:22)
[2017-04-26] MEDS: OLANZapine 5 MG TAB PO (10:05)
[2017-04-26] MEDS: NYSTATIN 100,000 UNITS/GM TOPICAL PWD 15 GM TOP ×2 (10:05→20:23)
[2017-04-26] MEDS: PALIPERIDONE PALMITATE 156 MG/1ML INJ(INVEGA SUSTENNA)(J2426) IM (12:35)
[2017-04-26] MEDS ORDERED: OLANZapine 10 MG TAB PO (21:00)
[2017-04-27 06:32] LABS: HEMATOCRIT 32.5 % (36.0-47.0); HEMOGLOBIN 10.5 g/dl (12.0-16.0); MEAN CORPUSCULAR HEMOGLOBIN 28.5 pg (27.0-33.0); MEAN CORPUSCULAR HGB CONC 32.3 g/dl (32.0-36.5); MEAN CORPUSCULAR VOLUME 88.3 fl (80.0-96.0); PLATELET COUNT, AUTOMATED 251 10^3/uL (150-450); RED BLOOD COUNT 3.68 10^6/uL (4.00-5.40); RED CELL DISTRIBUTION WIDTH 14.6 % (11.5-14.5); WHITE BLOOD COUNT 3.9 10^3/uL (4.0-10.0)
[2017-04-27 06:36] LABS: ANION GAP 5 MEQ/L (8-16); BLOOD UREA NITROGEN 11 MG/DL (7-18); CALCIUM LEVEL 8.3 MG/DL (8.8-10.2); CARBON DIOXIDE LEVEL 30 MEQ/L (21-32); CHLORIDE LEVEL 104 MEQ/L (98-107); GLOMERULAR FILTRATION RATE > 60.0 (>39); GLUCOSE, FASTING 88 MG/DL (83-110); MAGNESIUM LEVEL 1.9 MG/DL (1.8-2.4); POTASSIUM SERUM 3.9 MEQ/L (3.5-5.1); SODIUM LEVEL 139 MEQ/L (136-145)
[2017-04-27] MEDS: NYSTATIN 100,000 UNITS/GM TOPICAL PWD 15 GM TOP ×2 (10:35→20:15)
[2017-04-27] MEDS: OXcarbazepine 150 MG TAB PO (10:38)
[2017-04-27] MEDS: CitaloPRAM (CeleXA) 10 MG TABLET PO (10:38)
[2017-04-27] MEDS: MAGNESIUM OXIDE 400 MG TAB (MAG-OX) PO ×2 (10:38→20:08)
[2017-04-27] MEDS: HEPARIN SOD (PORCINE) 5000 UNITS/ML VIAL SQ ×2 (10:39→20:15)
[2017-04-28] MEDS: MAGNESIUM OXIDE 400 MG TAB (MAG-OX) PO ×3 (10:53→21:00)
[2017-04-28] MEDS: CitaloPRAM (CeleXA) 10 MG TABLET PO ×2 (10:53→11:05)
[2017-04-28] MEDS: OXcarbazepine 150 MG TAB PO ×2 (10:53→11:05)
[2017-04-28] MEDS: HEPARIN SOD (PORCINE) 5000 UNITS/ML VIAL SQ ×3 (10:53→21:00)
[2017-04-28] MEDS: NYSTATIN 100,000 UNITS/GM TOPICAL PWD 15 GM TOP ×2 (10:53→21:00)
[2017-04-29] MEDS: CitaloPRAM (CeleXA) 10 MG TABLET PO (09:00)
[2017-04-29] MEDS: OXcarbazepine 150 MG TAB PO (09:00)
[2017-04-29] MEDS: MAGNESIUM OXIDE 400 MG TAB (MAG-OX) PO ×2 (09:00→20:38)
[2017-04-29] MEDS: NYSTATIN 100,000 UNITS/GM TOPICAL PWD 15 GM TOP ×2 (09:00→20:39)
[2017-04-29] MEDS: HEPARIN SOD (PORCINE) 5000 UNITS/ML VIAL SQ ×2 (09:00→20:39)
[2017-04-30] MEDS: NYSTATIN 100,000 UNITS/GM TOPICAL PWD 15 GM TOP ×2 (09:00→21:00)
[2017-04-30] MEDS: CitaloPRAM (CeleXA) 10 MG TABLET PO (10:14)
[2017-04-30] MEDS: MAGNESIUM OXIDE 400 MG TAB (MAG-OX) PO ×2 (10:15→22:04)
[2017-04-30] MEDS: OXcarbazepine 150 MG TAB PO (10:15)
[2017-04-30] MEDS: HEPARIN SOD (PORCINE) 5000 UNITS/ML VIAL SQ ×2 (10:17→21:00)
[2017-05-01] MEDS: NYSTATIN 100,000 UNITS/GM TOPICAL PWD 15 GM TOP ×2 (09:00→22:26)
[2017-05-01] MEDS: HEPARIN SOD (PORCINE) 5000 UNITS/ML VIAL SQ ×2 (09:00)
[2017-05-01] MEDS: OXcarbazepine 150 MG TAB PO (09:00)
[2017-05-01] MEDS: CitaloPRAM (CeleXA) 10 MG TABLET PO (09:00)
[2017-05-01] MEDS: MAGNESIUM OXIDE 400 MG TAB (MAG-OX) PO ×2 (09:00→22:26)
[2017-05-02 08:25] LABS: HEMATOCRIT 33.2 % (36.0-47.0); HEMOGLOBIN 10.6 g/dl (12.0-16.0); MEAN CORPUSCULAR HEMOGLOBIN 28.7 pg (27.0-33.0); MEAN CORPUSCULAR HGB CONC 31.9 g/dl (32.0-36.5); PLATELET COUNT, AUTOMATED 260 10^3/uL (150-450); RED BLOOD COUNT 3.69 10^6/uL (4.00-5.40); RED CELL DISTRIBUTION WIDTH 14.8 % (11.5-14.5); WHITE BLOOD COUNT 7.1 10^3/uL (4.0-10.0)
[2017-05-02 08:56] LABS: ANION GAP 6 MEQ/L (8-16); BLOOD UREA NITROGEN 14 MG/DL (7-18); CALCIUM LEVEL 8.7 MG/DL (8.8-10.2); CARBON DIOXIDE LEVEL 28 MEQ/L (21-32); CHLORIDE LEVEL 103 MEQ/L (98-107); CREATININE FOR GFR 0.73 MG/DL (0.55-1.02); GLOMERULAR FILTRATION RATE > 60.0 (>39); GLUCOSE, FASTING 117 MG/DL (83-110); POTASSIUM SERUM 3.9 MEQ/L (3.5-5.1); SODIUM LEVEL 137 MEQ/L (136-145)
[2017-05-02] MEDS: HEPARIN SOD (PORCINE) 5000 UNITS/ML VIAL SQ ×2 (09:00→20:32)
[2017-05-02] MEDS: NYSTATIN 100,000 UNITS/GM TOPICAL PWD 15 GM TOP ×2 (09:00→20:29)
[2017-05-02] MEDS: OXcarbazepine 150 MG TAB PO (09:00)
[2017-05-02] MEDS: CitaloPRAM (CeleXA) 10 MG TABLET PO (09:00)
[2017-05-02] MEDS: MAGNESIUM OXIDE 400 MG TAB (MAG-OX) PO ×2 (09:00→20:29)
[2017-05-02 18:43] LABS: KETONE, URINE AUTO RFX NEGATIVE (NEGATIVE); MUCUS, URINE RFX SMALL (NEGATIVE); NITRITE, URINE AUTO RFX NEGATIVE (NEGATIVE); RBC, URINE AUTO RFX 1 /HPF (0-3); SQUAM EPITHELIAL CELL UR AURFX 1 /HPF (0-6); WBC, URINE AUTO RFX 6 /HPF (0-3)
[2017-05-02 19:02] LABS: LEUKOCYTE ESTERASE UR AUTO RFX TRACE (NEGATIVE)
[2017-05-03] MEDS: OXcarbazepine 150 MG TAB PO ×2 (08:59→09:00)
[2017-05-03] MEDS: HEPARIN SOD (PORCINE) 5000 UNITS/ML VIAL SQ ×2 (09:00→20:12)
[2017-05-03] MEDS: MAGNESIUM OXIDE 400 MG TAB (MAG-OX) PO ×3 (09:00→20:11)
[2017-05-03] MEDS: CitaloPRAM (CeleXA) 10 MG TABLET PO ×2 (09:00)
[2017-05-03] MEDS: NYSTATIN 100,000 UNITS/GM TOPICAL PWD 15 GM TOP ×2 (09:00→20:11)
[2017-05-04] MEDS: NYSTATIN 100,000 UNITS/GM TOPICAL PWD 15 GM TOP ×2 (08:02→20:04)
[2017-05-04] MEDS: HEPARIN SOD (PORCINE) 5000 UNITS/ML VIAL SQ ×2 (08:02→20:04)
[2017-05-04] MEDS: OXcarbazepine 150 MG TAB PO (08:30)
[2017-05-04] MEDS: CitaloPRAM (CeleXA) 10 MG TABLET PO (08:30)
[2017-05-04] MEDS: MAGNESIUM OXIDE 400 MG TAB (MAG-OX) PO ×2 (08:30→20:03)
[2017-05-05] MEDS: OXcarbazepine 150 MG TAB PO (09:00)
[2017-05-05] MEDS: CitaloPRAM (CeleXA) 10 MG TABLET PO (09:00)
[2017-05-05] MEDS: HEPARIN SOD (PORCINE) 5000 UNITS/ML VIAL SQ ×2 (09:00→20:34)
[2017-05-05] MEDS: MAGNESIUM OXIDE 400 MG TAB (MAG-OX) PO ×2 (09:00→20:26)
[2017-05-05] MEDS: NYSTATIN 100,000 UNITS/GM TOPICAL PWD 15 GM TOP ×2 (09:00→20:28)
[2017-05-06] MEDS: HEPARIN SOD (PORCINE) 5000 UNITS/ML VIAL SQ ×2 (08:23→20:02)
[2017-05-06] MEDS: NYSTATIN 100,000 UNITS/GM TOPICAL PWD 15 GM TOP ×2 (08:23→20:02)
[2017-05-06] MEDS: CitaloPRAM (CeleXA) 10 MG TABLET PO (08:24)
[2017-05-06] MEDS: OXcarbazepine 150 MG TAB PO (08:24)
[2017-05-06] MEDS: MAGNESIUM OXIDE 400 MG TAB (MAG-OX) PO ×2 (08:24→20:01)
[2017-05-07] MEDS: OXcarbazepine 150 MG TAB PO (09:11)
[2017-05-07] MEDS: CitaloPRAM (CeleXA) 10 MG TABLET PO (09:11)
[2017-05-07] MEDS: MAGNESIUM OXIDE 400 MG TAB (MAG-OX) PO ×3 (09:12→21:00)
[2017-05-07] MEDS: HEPARIN SOD (PORCINE) 5000 UNITS/ML VIAL SQ ×3 (09:12→21:00)
[2017-05-07] MEDS: NYSTATIN 100,000 UNITS/GM TOPICAL PWD 15 GM TOP ×2 (09:12→20:25)
[2017-05-08] MEDS: CitaloPRAM (CeleXA) 10 MG TABLET PO (08:08)
[2017-05-08] MEDS: MAGNESIUM OXIDE 400 MG TAB (MAG-OX) PO ×2 (08:08→20:08)
[2017-05-08] MEDS: OXcarbazepine 150 MG TAB PO (08:09)
[2017-05-08] MEDS: NYSTATIN 100,000 UNITS/GM TOPICAL PWD 15 GM TOP ×2 (08:10→20:08)
[2017-05-08] MEDS: HEPARIN SOD (PORCINE) 5000 UNITS/ML VIAL SQ ×2 (08:10→20:08)
[2017-05-09] MEDS: NYSTATIN 100,000 UNITS/GM TOPICAL PWD 15 GM TOP ×2 (08:12→20:26)
[2017-05-09] MEDS: CitaloPRAM (CeleXA) 10 MG TABLET PO (08:12)
[2017-05-09] MEDS: MAGNESIUM OXIDE 400 MG TAB (MAG-OX) PO ×2 (08:12→20:26)
[2017-05-09] MEDS: OXcarbazepine 150 MG TAB PO (08:12)
[2017-05-09] MEDS: HEPARIN SOD (PORCINE) 5000 UNITS/ML VIAL SQ ×2 (08:12→20:26)
[2017-05-09 08:42] LABS: HEMATOCRIT 35.8 % (36.0-47.0); HEMOGLOBIN 11.6 g/dl (12.0-16.0); MEAN CORPUSCULAR HEMOGLOBIN 28.9 pg (27.0-33.0); MEAN CORPUSCULAR HGB CONC 32.4 g/dl (32.0-36.5); MEAN CORPUSCULAR VOLUME 89.1 fl (80.0-96.0); PLATELET COUNT, AUTOMATED 320 10^3/uL (150-450); RED BLOOD COUNT 4.02 10^6/uL (4.00-5.40); RED CELL DISTRIBUTION WIDTH 14.4 % (11.5-14.5); WHITE BLOOD COUNT 3.8 10^3/uL (4.0-10.0)
[2017-05-09 09:06] LABS: ANION GAP 8 MEQ/L (8-16); BLOOD UREA NITROGEN 12 MG/DL (7-18); CALCIUM LEVEL 8.9 MG/DL (8.8-10.2); CARBON DIOXIDE LEVEL 27 MEQ/L (21-32); CHLORIDE LEVEL 105 MEQ/L (98-107); CREATININE FOR GFR 0.58 MG/DL (0.55-1.02); GLOMERULAR FILTRATION RATE > 60.0 (>39); GLUCOSE, FASTING 90 MG/DL (83-110); POTASSIUM SERUM 4.5 MEQ/L (3.5-5.1); SODIUM LEVEL 140 MEQ/L (136-145)
[2017-05-09] MEDS: NYSTATIN 500,000 U/5 ML SUSP UDC SS ×2 (17:25→23:15)
[2017-05-10] MEDS: NYSTATIN 500,000 U/5 ML SUSP UDC SS (05:11)
[2017-05-10 06:19] LABS: HEMOGLOBIN 10.2 g/dl (12.0-16.0); MEAN CORPUSCULAR HEMOGLOBIN 28.3 pg (27.0-33.0); MEAN CORPUSCULAR HGB CONC 31.9 g/dl (32.0-36.5); MEAN CORPUSCULAR VOLUME 88.9 fl (80.0-96.0); PLATELET COUNT, AUTOMATED 309 10^3/uL (150-450); RED CELL DISTRIBUTION WIDTH 14.4 % (11.5-14.5); WHITE BLOOD COUNT 3.9 10^3/uL (4.0-10.0)
[2017-05-10 06:45] LABS: ANION GAP 7 MEQ/L (8-16); BLOOD UREA NITROGEN 11 MG/DL (7-18); CALCIUM LEVEL 8.5 MG/DL (8.8-10.2); CARBON DIOXIDE LEVEL 28 MEQ/L (21-32); CHLORIDE LEVEL 106 MEQ/L (98-107); CREATININE FOR GFR 0.55 MG/DL (0.55-1.02); GLOMERULAR FILTRATION RATE > 60.0 (>39); GLUCOSE, FASTING 81 MG/DL (83-110); POTASSIUM SERUM 3.9 MEQ/L (3.5-5.1); SODIUM LEVEL 141 MEQ/L (136-145)
[2017-05-10] MEDS: CitaloPRAM (CeleXA) 10 MG TABLET PO (08:33)
[2017-05-10] MEDS: MAGNESIUM OXIDE 400 MG TAB (MAG-OX) PO (08:33)
[2017-05-10] MEDS: NYSTATIN 100,000 UNITS/GM TOPICAL PWD 15 GM TOP (08:33)
[2017-05-10] MEDS: OXcarbazepine 150 MG TAB PO (08:33)
[2017-05-10] MEDS: HEPARIN SOD (PORCINE) 5000 UNITS/ML VIAL SQ (08:33)
== END 2017-05-10 11:17 | disposition home health service (06) | DRG 683 ==
LOC: M MSPAV 04-12 14:54 → M ED INP 04-11 14:29 → M MSPAV 04-26 12:46 → M PCU 04-11 14:36 → M ED 07:04 → M ED INP 12:04 → M PCU 13:15
PROVIDERS: Internal Medicine
DX: N17.9 Acute kidney failure, unspecified (principal); E87.0 Hyperosmolality and hypernatremia; M62.82 Rhabdomyolysis; E87.2 Acidosis; N39.0 Urinary tract infection, site not specified; E86.0 Dehydration; I10 Essential (primary) hypertension; F31.9 Bipolar disorder, unspecified; R41.82 Altered mental status, unspecified; E83.42 Hypomagnesemia; L30.9 Dermatitis, unspecified; E78.5 Hyperlipidemia, unspecified; Z91.14 Patient's other noncompliance with medication regimen; Z88.0 Allergy status to penicillin; Z91.040 Latex allergy status; Z88.8 Allergy status to other drugs, medicaments and biological substances

== ENCOUNTER → 2017-06-07 | Outpatient (REF) | payer OTHER | LOC: M SFHCCLAY 10:29 | DX: R19.5 Other fecal abnormalities (principal) | CPT/HCPCS: 87177 ==

== ENCOUNTER → 2017-10-31 | Outpatient (REF) | payer OTHER, MEDICARE ==
[2017-10-31 08:38] LABS: HEMATOCRIT 42.3 % (36.0-47.0); HEMOGLOBIN 13.5 g/dl (12.0-15.5); MEAN CORPUSCULAR HEMOGLOBIN 29.2 pg (27.0-33.0); MEAN CORPUSCULAR HGB CONC 31.9 g/dl (32.0-36.5); MEAN CORPUSCULAR VOLUME 91.6 fl (80.0-96.0); PLATELET COUNT, AUTOMATED 371 10^3/uL (150-450); RED BLOOD COUNT 4.62 10^6/uL (4.00-5.40); RED CELL DISTRIBUTION WIDTH 13.5 % (11.5-14.5)
[2017-10-31 09:17] LABS: ALBUMIN 3.4 GM/DL (3.2-5.2); ALKALINE PHOSPHATASE 84 U/L (45-117); ALT/SGPT 21 U/L (12-78); ANION GAP 8 MEQ/L (8-16); AST/SGOT 11 U/L (7-37); BILIRUBIN,TOTAL 0.3 MG/DL (0.2-1.0); BLOOD UREA NITROGEN 21 MG/DL (7-18); CALCIUM LEVEL 8.9 MG/DL (8.8-10.2); CARBON DIOXIDE LEVEL 28 MEQ/L (21-32); CHLORIDE LEVEL 109 MEQ/L (98-107); CREATININE FOR GFR 0.81 MG/DL (0.55-1.30); GLOMERULAR FILTRATION RATE > 60.0 (>39); GLUCOSE, FASTING 81 MG/DL (70-100); POTASSIUM SERUM 4.6 MEQ/L (3.5-5.1); SODIUM LEVEL 145 MEQ/L (136-145); TOTAL PROTEIN 6.8 GM/DL (6.4-8.2)
[2017-11-02 00:09] LABS: VITAMIN D 1,25 DIHYDROXY 23.7 pg/mL (19.9-79.3)
== END ==
LOC: SKLAB6 07:00
DX: F31.9 Bipolar disorder, unspecified (principal); E78.5 Hyperlipidemia, unspecified
CPT/HCPCS: 84443

== ENCOUNTER → 2018-03-01 | Outpatient (REF) | payer MEDICARE, MEDICAID | LOC: SKLAB6 02:00 | DX: R30.0 Dysuria (principal); M54.89 Other dorsalgia | CPT/HCPCS: 87086 ==

== ENCOUNTER → 2018-03-09 | Outpatient (REF) | payer MEDICARE ==
[2018-03-09 09:36] LABS: ESTIMATED AVERAGE GLUCOSE 103 MG/DL (60-110); HEMOGLOBIN A1c 5.2 %
== END ==
LOC: SKLAB6 07:00
DX: Z79.899 Other long term (current) drug therapy (principal); F31.9 Bipolar disorder, unspecified
CPT/HCPCS: 83036

== ENCOUNTER → 2018-05-11 | Outpatient (REF) | payer MEDICARE ==
[~2018-05-11] MED LIST changes: +FOLI1TAB11 PO; -FOLI1TAB4 PO; -LOSA100T36; +LOSA100T50; +MAGN400C3 PO; -OXCA150T PO; +OXCA150T21 PO; -OXCA300T PO; +OXCA300T14 PO; +SENN8.6C PO; +TRAZ-160; -TRAZ50TA11
[2018-05-11 07:51] LABS: HEMATOCRIT 41.9 % (36.0-47.0); HEMOGLOBIN 13.5 g/dl (12.0-15.5); MEAN CORPUSCULAR HEMOGLOBIN 28.9 pg (27.0-33.0); MEAN CORPUSCULAR HGB CONC 32.2 g/dl (32.0-36.5); MEAN CORPUSCULAR VOLUME 89.7 fl (80.0-96.0); PLATELET COUNT, AUTOMATED 308 10^3/uL (150-450); RED BLOOD COUNT 4.67 10^6/uL (4.00-5.40); WHITE BLOOD COUNT 5.6 10^3/uL (4.0-10.0)
[2018-05-11 08:15] LABS: ALBUMIN 3.7 GM/DL (3.2-5.2); ALT/SGPT 16 U/L (12-78); BILIRUBIN,TOTAL 0.4 MG/DL (0.2-1.0); BLOOD UREA NITROGEN 18 MG/DL (7-18); CARBON DIOXIDE LEVEL 27 MEQ/L (21-32); CHLORIDE LEVEL 105 MEQ/L (98-107); CREATININE FOR GFR 0.73 MG/DL (0.55-1.30); GLOMERULAR FILTRATION RATE > 60.0 (>39); GLUCOSE, FASTING 86 MG/DL (70-100); POTASSIUM SERUM 3.8 MEQ/L (3.5-5.1); SODIUM LEVEL 140 MEQ/L (136-145); TOTAL PROTEIN 7.2 GM/DL (6.4-8.2)
== END ==
LOC: SKLAB6 07:00
PROVIDERS: ATTEND Family Medicine
DX: E78.5 Hyperlipidemia, unspecified (principal); F03.90 Unspecified dementia, unspecified severity, without behavioral disturbance, psychotic disturbance, mood disturbance, and anxiety; F31.9 Bipolar disorder, unspecified

== ENCOUNTER → 2018-06-22 | Outpatient (REF) | payer MEDICARE, MEDICAID | LOC: SKLAB6 14:00 | PROVIDERS: ATTEND Family Medicine | DX: J02.9 Acute pharyngitis, unspecified (principal) ==

== ENCOUNTER → 2018-11-21 | Outpatient (REF) | payer MEDICARE, MEDICAID, OTHER ==
[~2018-11-21] MED LIST changes: -BENZ0.5T PO; +BENZ0.5T23 PO; -TRAZ-160; +TRAZ-252
== END ==
LOC: M SFHCCLAY 11:57
PROVIDERS: ATTEND Family Medicine
DX: R30.0 Dysuria (principal)

== ENCOUNTER → 2018-12-11 | Outpatient (CLI) | payer MEDICARE ==
[~2018-12-11] MED LIST changes: -SERT-155; +SERT50TA29
[2018-12-11 15:20] LABS: APPEARANCE, URINE CLEAR (CLEAR); BACTERIA, URINE AUTO NEGATIVE (NEGATIVE); BILIRUBIN, URINE AUTO NEGATIVE (NEGATIVE); BLOOD, URINE BLOOD NEGATIVE (NEGATIVE); COLOR, URINE YELLOW (YELLOW); GLUCOSE, URINE (UA) AUTO NEGATIVE (NEGATIVE); KETONE, URINE AUTO TRACE mg/dL (NEGATIVE); LEUKOCYTE ESTERASE, URINE AUTO 1+ (NEGATIVE); MUCUS, URINE SMALL (NEGATIVE); NITRITE, URINE AUTO NEGATIVE (NEGATIVE); PROTEIN, URINE AUTO NEGATIVE (NEGATIVE); RBC, URINE AUTO 3 /HPF (0-3); SPECIFIC GRAVITY URINE AUTO 1.025 (1.002-1.035); SQUAMOUS EPITHELIAL CELL UR AU 0 /HPF (0-6); UROBILINOGEN, URINE AUTO 0.2 mg/dL (0.0-2.0); WBC, URINE AUTO 11 /HPF (0-3)
== END ==
LOC: SKLAB6 08:00 → EDSTATUS 11:59
PROVIDERS: ATTEND Family Medicine
DX: R46.89 Other symptoms and signs involving appearance and behavior (principal)

== ENCOUNTER → 2019-01-16 | Outpatient (REF) | payer MEDICARE ==
[~2019-01-16] MED LIST changes: +SERT-155; -SERT50TA29
[2019-01-16 11:30] LABS: HEMOGLOBIN A1c 5.2 %
[2019-01-16 11:45] LABS: ALBUMIN 3.3 GM/DL (3.2-5.2); ALT/SGPT 17 U/L (12-78); BILIRUBIN,TOTAL 0.3 MG/DL (0.2-1.0); BLOOD UREA NITROGEN 16 MG/DL (7-18); CARBON DIOXIDE LEVEL 27 MEQ/L (21-32); CHLORIDE LEVEL 106 MEQ/L (98-107); CHOLESTEROL LEVEL 245 MG/DL (<200); CHOLESTEROL RISK RATIO 5.104 (<5); CREATININE FOR GFR 0.65 MG/DL (0.55-1.30); GLOMERULAR FILTRATION RATE > 60.0 (>39); GLUCOSE, FASTING 87 MG/DL (70-100); HDL CHOLESTEROL 48 MG/DL (>40); LDL CHOLESTEROL 151 MG/DL (<100); NON-HDL-C 197 MG/DL; POTASSIUM SERUM 4.3 MEQ/L (3.5-5.1); SODIUM LEVEL 140 MEQ/L (136-145); TOTAL PROTEIN 6.1 GM/DL (6.4-8.2); TRIGLYCERIDES LEVEL 228 MG/DL (<150)
== END ==
LOC: SKLAB6 07:00
PROVIDERS: ATTEND Family Medicine
DX: Z79.899 Other long term (current) drug therapy (principal)

== ENCOUNTER → 2019-06-29 | Outpatient (REF) | payer MEDICARE, MEDICAID ==
[~2019-06-29] MED LIST changes: -SERT-155; +SERT50TA29
== END ==
LOC: M SFHCCLAY 15:12
PROVIDERS: ATTEND Family Medicine
DX: N30.90 Cystitis, unspecified without hematuria (principal); Z53.8 Procedure and treatment not carried out for other reasons
CPT/HCPCS: 81002; G0463

== ENCOUNTER → 2019-08-15 | Outpatient (REF) | payer MEDICARE, MEDICAID | LOC: M SFHCCLAY 10:14 | PROVIDERS: ATTEND Family Medicine | DX: N30.00 Acute cystitis without hematuria (principal) | CPT/HCPCS: 81002; 87086; G0463 ==

== ENCOUNTER → 2020-01-29 | Outpatient (REF) | payer MEDICARE, MEDICAID ==
[2020-01-29 12:48] LABS: ALBUMIN 3.7 GM/DL (3.2-5.2); ALT/SGPT 26 U/L (12-78); BILIRUBIN,TOTAL 0.4 MG/DL (0.2-1.0); BLOOD UREA NITROGEN 18 MG/DL (7-18); CALCIUM LEVEL 9.4 MG/DL (8.8-10.2); CARBON DIOXIDE LEVEL 29 MEQ/L (21-32); CHLORIDE LEVEL 108 MEQ/L (98-107); CHOLESTEROL LEVEL 259 MG/DL (<200); CHOLESTEROL RISK RATIO 4.709 (<5); GLOMERULAR FILTRATION RATE > 60.0 (>39); GLUCOSE, FASTING 103 MG/DL (70-100); HDL CHOLESTEROL 55 MG/DL (>40); LDL CHOLESTEROL 162 MG/DL (<100); NON-HDL-C 204 MG/DL; POTASSIUM SERUM 4.8 MEQ/L (3.5-5.1); SODIUM LEVEL 143 MEQ/L (136-145); TOTAL PROTEIN 7.2 GM/DL (6.4-8.2); TRIGLYCERIDES LEVEL 211 MG/DL (<150)
== END ==
LOC: M SFHCCLAY 11:21
PROVIDERS: ATTEND Family Medicine
DX: E78.49 Other hyperlipidemia (principal)

== ENCOUNTER → 2020-10-13 | Outpatient (CLI) | payer OTHER, MEDICAID ==
[~2020-10-13] MED LIST changes: +QUET50TA3 PO; -QUET5TAB PO; +RISP-8; +RISP-9 PO; -RISP1TAB3; -RISP2TAB3 PO
--- NOTE | 2020-10-14 10:38 | ECHO ---
ECHOCARDIOGRAM DATE OF PROCEDURE: 10/13/2020 Age: Gender: Height: 165 cm Weight: 103 kg REFERRING PHYSICIAN: Dr. Alka Tse. INDICATION: Cardiac murmur. MEASUREMENTS: IVS 1.4 cm LV 4.1 cm LVPW 1.0 cm LA 4.0 cm Aorta 3.1 cm IVC 1.3 cm Mitral E wave velocity 54 A wave 100 E prime septal 5.4 E prime lateral 8.7 FINDINGS: This study is of acceptable technical quality. Underlying sinus rhythm. Left ventricle is normal size and systolic function with estimated EF around 65 to 70%. Mild left ventricle hypertrophy is noted. Right ventricle is also normal size and systolic function. Left atrium is mildly enlarged. Right atrium is likely normal size. Aortic valve is tricuspid. It is heavily calcified and has some restriction of cusp mobility. Based on some images, I cannot rule out presence of small vegetation even though it seems unlikely. Mitral valve appears normal for patient's age. Same applies for tricuspid and pulmonic valves. No pericardial effusion is noted. Inferior vena cava is normal size. Aortic root is normal. Aortic arch and abdominal aorta were poorly seen. Doppler interrogation of aortic valve reveals no significant insufficiency and probably moderate stenosis with mean gradient 22 mmHg and calculated aortic valve area approximately 1.7 cm2. There is no significant mitral and tricuspid valvular disease. Trace pulmonic insufficiency is seen. Mitral inflow pattern and tissue Doppler imaging of mitral annulus revealed grade 1 diastolic dysfunction. CONCLUSIONS: 1. Study is of acceptable technical quality, underlying sinus rhythm. 2. Normal LV size with mild LVH, preserved LV systolic function and grade 1 diastolic dysfunction. 3. Heavily calcified aortic valve resulting in approximately mild to moderate stenosis (mean gradient 22 mmHg) and no significant insufficiency. Based on some images cannot rule out presence of small vegetation on the aortic valve. 4. No additional significant valvular disease. 5. Likely normal central venous pressure. 6. Unable to estimate pulmonary artery pressure.
== END ==
LOC: M CARPUL 09:19
PROVIDERS: ATTEND Family Medicine
DX: R01.1 Cardiac murmur, unspecified (principal)

== ENCOUNTER → 2021-02-26 | Outpatient (REF) | payer OTHER, MEDICAID ==
[~2021-02-26] MED LIST changes: +OLAN1TAB16 PO; -OLAN5TAB PO; -QUET50TA3 PO; +QUET50TA4 PO
[2021-02-26 17:12] LABS: CALCIUM LEVEL 9.5 MG/DL (8.8-10.2); CHOLESTEROL RISK RATIO 4.368 (<5); CREATININE FOR GFR 1.05 MG/DL (0.55-1.30); GLOMERULAR FILTRATION RATE 53.8 (>39)
== END ==
LOC: M SFHCPLAZ 10:29
PROVIDERS: ATTEND Family Medicine
DX: R35.0 Frequency of micturition (principal); E78.00 Pure hypercholesterolemia, unspecified

== ENCOUNTER → 2021-06-08 | Outpatient (REF) | payer OTHER, MEDICAID ==
[~2021-06-08] MED LIST changes: -CITA10TA5 PO; +CITA10TA7 PO; +LOSA100T45; -LOSA100T50
[2021-06-08 16:39] LABS: AMORPHOUS SEDIMENT SMALL (NEGATIVE); APPEARANCE, URINE TURBID (CLEAR); BACTERIA, URINE AUTO NEGATIVE (NEGATIVE); BILIRUBIN, URINE AUTO NEGATIVE (NEGATIVE); BLOOD, URINE BLOOD NEGATIVE (NEGATIVE); COLOR, URINE YELLOW (YELLOW); GLUCOSE, URINE (UA) AUTO NEGATIVE (NEGATIVE); KETONE, URINE AUTO TRACE mg/dL (NEGATIVE); LEUKOCYTE ESTERASE, URINE AUTO 1+ (NEGATIVE); MUCUS, URINE SMALL (NEGATIVE); NITRITE, URINE AUTO NEGATIVE (NEGATIVE); PROTEIN, URINE AUTO NEGATIVE (NEGATIVE); RBC, URINE AUTO 0 /HPF (0-3); SPECIFIC GRAVITY URINE AUTO 1.029 (1.002-1.035); SQUAMOUS EPITHELIAL CELL UR AU 2 /HPF (0-6); WBC, URINE AUTO 17 /HPF (0-3)
== END ==
LOC: M SFHCCLAY 10:01
PROVIDERS: ATTEND Family Medicine
DX: R30.0 Dysuria (principal)

== ENCOUNTER → 2021-10-07 | Outpatient (CLI) | payer OTHER, MEDICAID | LOC: M CLY 13:32 | PROVIDERS: ATTEND Family Medicine | DX: I35.0 Nonrheumatic aortic (valve) stenosis (principal) ==

== ENCOUNTER → 2021-11-05 | Outpatient (REF) | payer OTHER, MEDICAID | LOC: M SFHCCLAY 12:46 | PROVIDERS: ATTEND Family Medicine | DX: N30.00 Acute cystitis without hematuria (principal) ==

== ENCOUNTER → 2021-11-19 | Outpatient (REF) | payer OTHER, MEDICAID ==
[2021-11-19 12:52] LABS: THYROID STIMULATING HORMONE 2.58 uIU/ML (0.358-3.740)
[2021-11-19 13:11] LABS: FOLATE 4.6 NG/ML
== END ==
LOC: M LABDRAWC 11:18
PROVIDERS: ATTEND Psychiatry & Neurology Neurology
DX: M79.7 Fibromyalgia (principal); E53.8 Deficiency of other specified B group vitamins; M10.9 Gout, unspecified

== ENCOUNTER → 2021-11-25 | Outpatient (REF) | payer OTHER, MEDICAID ==
[2021-11-25 16:14] LABS: HEMATOCRIT 46.6 % (36.0-47.0); HEMOGLOBIN 14.6 g/dl (12.0-15.5); MEAN CORPUSCULAR HEMOGLOBIN 28.6 pg (27.0-33.0); MEAN CORPUSCULAR HGB CONC 31.3 g/dl (32.0-36.5); MEAN CORPUSCULAR VOLUME 91.4 fl (80.0-96.0); PLATELET COUNT, AUTOMATED 320 10^3/uL (150-450); WHITE BLOOD COUNT 9.3 10^3/uL (4.0-10.0)
[2021-11-25 16:38] LABS: C REACTIVE PROTEIN QUANTITATIV < 0.30 MG/DL (0.00-0.30); RHEUMATOID FACTOR QUANT < 10.0 IU/ML (<15.0)
[2021-11-25 17:26] LABS: ERYTHROCYTE SEDIMENTATION RATE 16 mm/hr (0-30)
== END ==
LOC: M SFHCCLAY 12:18
PROVIDERS: ATTEND Family Medicine
DX: M19.90 Unspecified osteoarthritis, unspecified site (principal)

== ENCOUNTER → 2022-07-22 | Outpatient (CLI) | payer MEDICARE, OTHER, MEDICAID ==
[~2022-07-22] MED LIST changes: +NYST-38 SS; -NYST50SS SS
== END ==
LOC: M WHC 11:30
PROVIDERS: ATTEND Family Medicine
DX: Z12.31 Encounter for screening mammogram for malignant neoplasm of breast (principal)

== ENCOUNTER → 2022-07-23 | Outpatient (REF) | payer MEDICARE, OTHER, MEDICAID ==
[2022-07-23 12:52] LABS: BASO % 0.4 % (0.0-1.0); EOS # 0.3 10^3/uL (0.0-0.5); EOS % 3.6 % (0.0-3.0); HEMATOCRIT 50.9 % (36.0-47.0); HEMOGLOBIN 15.5 g/dl (12.0-15.5); LYMPH # 2.1 10^3/uL (1.5-5.0); MEAN CORPUSCULAR HEMOGLOBIN 28.9 pg (27.0-33.0); MEAN CORPUSCULAR HGB CONC 30.5 g/dl (32.0-36.5); MONO # 0.5 10^3/uL (0.0-0.8); MONO % 7.1 % (2.0-8.0); NEUTROPHILS % 57.6 % (36.0-66.0); PLATELET COUNT, AUTOMATED 298 10^3/uL (150-450); RED BLOOD COUNT 5.36 10^6/uL (4.00-5.40); WHITE BLOOD COUNT 6.9 10^3/uL (4.0-10.0)
[2022-07-23 13:01] LABS: HEMOGLOBIN A1c 5.4 % (4.0-6.0)
[2022-07-23 13:19] LABS: ALBUMIN 3.8 G/DL (3.2-5.2); ALKALINE PHOSPHATASE 82 U/L (46-116); ALT/SGPT 13 U/L (7.0-40); AST/SGOT 18 U/L (<34); BILIRUBIN,TOTAL 0.5 MG/DL (0.3-1.2); BLOOD UREA NITROGEN 19 MG/DL (9-23); CALCIUM LEVEL 9.3 MG/DL (8.3-10.6); CARBON DIOXIDE LEVEL 30 MMOL/L (20-31); CHLORIDE LEVEL 104 MMOL/L (98-107); CHOLESTEROL LEVEL 229 MG/DL (<200); CHOLESTEROL RISK RATIO 4.83 (<5); CREATININE FOR GFR 0.84 MG/DL (0.55-1.30); FREE T4 0.75 NG/DL (0.89-1.76); GLOMERULAR FILTRATION RATE > 60.0 (>32); GLUCOSE, FASTING 98 MG/DL (74-106); HDL CHOLESTEROL 47.4 MG/DL (>40); LDL CHOLESTEROL 146.8 MG/DL (<100); NON-HDL-C 181.6 MG/DL; POTASSIUM SERUM 4.9 MMOL/L (3.5-5.1); SODIUM LEVEL 140 MMOL/L (136-145); THYROID STIMULATING HORMONE 7.566 uIU/ML (0.55-4.78); TOTAL PROTEIN 6.9 G/DL (5.7-8.2); TRIGLYCERIDES LEVEL 174 MG/DL (<150)
== END ==
LOC: M SFHCCLAY 07:20
PROVIDERS: ATTEND Family Medicine
DX: R63.4 Abnormal weight loss (principal); E86.0 Dehydration; F31.70 Bipolar disorder, currently in remission, most recent episode unspecified; K21.9 Gastro-esophageal reflux disease without esophagitis; I10 Essential (primary) hypertension; E78.5 Hyperlipidemia, unspecified

== ENCOUNTER → 2022-07-28 | Outpatient (REF) | payer MEDICARE, OTHER, MEDICAID | LOC: M SFHCCAPE 11:15 | PROVIDERS: ATTEND Physician Assistant | DX: R82.90 Unspecified abnormal findings in urine (principal) ==

== ENCOUNTER → 2022-09-23 | Outpatient (REF) | payer MEDICARE, OTHER, MEDICAID ==
[~2022-09-23] MED LIST changes: +BENZ0.5T2 PO; -BENZ0.5T23 PO; -LOSA100T45; +LOSA100T46
== END ==
LOC: M SFHCCLAY 11:08
PROVIDERS: ATTEND Physician Assistant Medical
DX: R35.0 Frequency of micturition (principal)

== ENCOUNTER → 2022-11-15 | Outpatient (CLI) | payer MEDICARE, OTHER, MEDICAID | LOC: SKLAB6 14:44 | PROVIDERS: ATTEND Nurse Practitioner Adult Health | DX: Z00.00 Encounter for general adult medical examination without abnormal findings (principal) ==

== ENCOUNTER → 2022-11-18 | Outpatient (REF) | payer MEDICARE, OTHER, MEDICAID ==
[2022-11-18 07:41] LABS: HEMATOCRIT 44.8 % (36.0-47.0); HEMOGLOBIN 13.9 g/dl (12.0-15.5); MEAN CORPUSCULAR HEMOGLOBIN 29.1 pg (27.0-33.0); MEAN CORPUSCULAR VOLUME 93.9 fl (80.0-96.0); PLATELET COUNT, AUTOMATED 256 10^3/uL (150-450); RED BLOOD COUNT 4.77 10^6/uL (4.00-5.40); WHITE BLOOD COUNT 5.8 10^3/uL (4.0-10.0)
[2022-11-18 08:00] LABS: BLOOD UREA NITROGEN 16 MG/DL (9-23); CARBON DIOXIDE LEVEL 28 MMOL/L (20-31); CHLORIDE LEVEL 106 MMOL/L (98-107); CREATININE FOR GFR 0.66 MG/DL (0.55-1.30); GLOMERULAR FILTRATION RATE > 60.0 (>32); GLUCOSE, FASTING 79 MG/DL (74-106); SODIUM LEVEL 141 MMOL/L (136-145); THYROID STIMULATING HORMONE 2.726 uIU/ML (0.55-4.78)
== END ==
LOC: SKLAB6 07:00
PROVIDERS: ATTEND Family Medicine
DX: F03.90 Unspecified dementia, unspecified severity, without behavioral disturbance, psychotic disturbance, mood disturbance, and anxiety (principal); E03.9 Hypothyroidism, unspecified

== ENCOUNTER → 2023-03-10 | Outpatient (REF) | payer MEDICARE, MEDICAID, OTHER | LOC: SKLAB6 07:00 | PROVIDERS: ATTEND Internal Medicine | DX: F31.9 Bipolar disorder, unspecified (principal); Z51.81 Encounter for therapeutic drug level monitoring; Z79.899 Other long term (current) drug therapy ==

== ENCOUNTER → 2023-04-29 | Outpatient (REF) | payer MEDICARE, MEDICAID, OTHER | LOC: SKLAB6 09:47 | PROVIDERS: ATTEND Family Medicine | DX: R05.9 Cough, unspecified (principal) ==

== ENCOUNTER → 2023-07-14 | Outpatient (REF) | payer MEDICARE, MEDICAID, OTHER ==
[~2023-07-14] MED LIST changes: +RISP-105; +RISP-106 PO; -RISP-8; -RISP-9 PO
== END ==
LOC: SKLAB6 07:00
PROVIDERS: ATTEND Family Medicine
DX: Z51.81 Encounter for therapeutic drug level monitoring (principal); F31.70 Bipolar disorder, currently in remission, most recent episode unspecified

== ENCOUNTER → 2023-08-10 | Outpatient (REF) | payer MEDICARE, MEDICAID, OTHER ==
[2023-08-10 13:33] LABS: HEMATOCRIT 37.6 % (36.0-47.0); HEMOGLOBIN 12.2 g/dl (12.0-15.5); MEAN CORPUSCULAR HEMOGLOBIN 29.3 pg (27.0-33.0); MEAN CORPUSCULAR HGB CONC 32.4 g/dl (32.0-36.5); MEAN CORPUSCULAR VOLUME 90.2 fl (80.0-96.0); PLATELET COUNT, AUTOMATED 265 10^3/uL (150-450); RED BLOOD COUNT 4.17 10^6/uL (4.00-5.40); WHITE BLOOD COUNT 7.2 10^3/uL (4.0-10.0)
[2023-08-10 14:00] LABS: ALBUMIN 3.2 G/DL (3.2-5.2); ALKALINE PHOSPHATASE 78 U/L (46-116); ALT/SGPT 13 U/L (7.0-40); AST/SGOT 20 U/L (<34); BILIRUBIN,TOTAL 0.4 MG/DL (0.3-1.2); BLOOD UREA NITROGEN 25 MG/DL (9-23); CALCIUM LEVEL 8.9 MG/DL (8.3-10.6); CARBON DIOXIDE LEVEL 26 MMOL/L (20-31); CHLORIDE LEVEL 104 MMOL/L (98-107); CREATININE FOR GFR 0.74 MG/DL (0.55-1.30); GLOMERULAR FILTRATION RATE > 60.0 (>32); GLUCOSE, FASTING 100 MG/DL (74-106); POTASSIUM SERUM 4.1 MMOL/L (3.5-5.1); SODIUM LEVEL 138 MMOL/L (136-145); TOTAL PROTEIN 6.1 G/DL (5.7-8.2)
== END ==
LOC: SKLAB6 11:53
PROVIDERS: ATTEND Family Medicine
DX: R10.9 Unspecified abdominal pain (principal)

== ENCOUNTER → 2023-11-10 | Outpatient (REF) | payer MEDICARE, MEDICAID, OTHER ==
[2023-11-10 09:48] LABS: HEMATOCRIT 42.4 % (36.0-47.0); HEMOGLOBIN 13.7 g/dl (12.0-15.5); MEAN CORPUSCULAR HEMOGLOBIN 29.3 pg (27.0-33.0); MEAN CORPUSCULAR HGB CONC 32.3 g/dl (32.0-36.5); MEAN CORPUSCULAR VOLUME 90.6 fl (80.0-96.0); PLATELET COUNT, AUTOMATED 298 10^3/uL (150-450); RED BLOOD COUNT 4.68 10^6/uL (4.00-5.40); WHITE BLOOD COUNT 6.8 10^3/uL (4.0-10.0)
[2023-11-10 10:15] LABS: BLOOD UREA NITROGEN 16 MG/DL (9-23); CALCIUM LEVEL 9.6 MG/DL (8.3-10.6); CARBON DIOXIDE LEVEL 26 MMOL/L (20-31); CHLORIDE LEVEL 107 MMOL/L (98-107); CREATININE FOR GFR 0.65 MG/DL (0.55-1.30); GLOMERULAR FILTRATION RATE > 60.0 (>32); GLUCOSE, FASTING 138 MG/DL (74-106); POTASSIUM SERUM 4.3 MMOL/L (3.5-5.1); SODIUM LEVEL 141 MMOL/L (136-145); THYROID STIMULATING HORMONE 3.413 uIU/ML (0.55-4.78)
== END ==
LOC: SKLAB6 07:31
PROVIDERS: ATTEND Family Medicine
DX: F03.90 Unspecified dementia, unspecified severity, without behavioral disturbance, psychotic disturbance, mood disturbance, and anxiety (principal)

== ENCOUNTER → 2024-03-09 | Outpatient (REF) | payer MEDICARE, MEDICAID, OTHER | LOC: SKLAB6 06:47 | PROVIDERS: ATTEND Family Medicine | DX: Z53.9 Procedure and treatment not carried out, unspecified reason (principal) ==

== ENCOUNTER → 2024-04-10 | Outpatient (REF) | payer MEDICARE, MEDICAID, OTHER | LOC: SKLAB6 07:00 | PROVIDERS: ATTEND Family Medicine | DX: Z51.81 Encounter for therapeutic drug level monitoring (principal); Z79.899 Other long term (current) drug therapy ==

== ENCOUNTER → 2024-05-17 | Outpatient (REF) | payer MEDICARE, MEDICAID, OTHER ==
[2024-05-17 11:29] LABS: HEMATOCRIT 41.8 % (36.0-47.0); HEMOGLOBIN 13.2 g/dl (12.0-15.5); MEAN CORPUSCULAR HEMOGLOBIN 29.3 pg (27.0-33.0); MEAN CORPUSCULAR HGB CONC 31.6 g/dl (32.0-36.5); MEAN CORPUSCULAR VOLUME 92.7 fl (80.0-96.0); PLATELET COUNT, AUTOMATED 262 10^3/uL (150-450); RED BLOOD COUNT 4.51 10^6/uL (4.00-5.40); WHITE BLOOD COUNT 7.6 10^3/uL (4.0-10.0)
== END ==
LOC: SKLAB6 08:25
PROVIDERS: ATTEND Internal Medicine
DX: E03.9 Hypothyroidism, unspecified (principal)

== ENCOUNTER → 2024-11-12 | Outpatient (REF) | payer MEDICARE, MEDICAID ==
[2024-11-12 08:24] LABS: PLATELET COUNT, AUTOMATED 239 10^3/uL (150-450)
== END ==
LOC: SKLAB6 07:23
PROVIDERS: ATTEND Internal Medicine
DX: E03.9 Hypothyroidism, unspecified (principal); Z79.899 Other long term (current) drug therapy; F03.90 Unspecified dementia, unspecified severity, without behavioral disturbance, psychotic disturbance, mood disturbance, and anxiety

== ENCOUNTER → 2025-02-10 | Outpatient (REF) | payer MEDICARE, MEDICAID ==
[~2025-02-10] MED LIST changes: +ZOLP10TA11; -ZOLP10TA2
[2025-02-10 20:22] LABS: APPEARANCE, URINE HAZY (CLEAR); BACTERIA, URINE AUTO 2+ (NEGATIVE); BILIRUBIN, URINE AUTO NEGATIVE (NEGATIVE); BLOOD, URINE BLOOD NEGATIVE (NEGATIVE); GLUCOSE, URINE (UA) AUTO NEGATIVE (NEGATIVE); KETONE, URINE AUTO TRACE mg/dL (NEGATIVE); LEUKOCYTE ESTERASE, URINE AUTO 2+ (NEGATIVE); MUCUS, URINE SMALL (NEGATIVE); NITRITE, URINE AUTO POSITIVE (NEGATIVE); PROTEIN, URINE AUTO NEGATIVE (NEGATIVE); RBC, URINE AUTO 5 /HPF (0-3); SPECIFIC GRAVITY URINE AUTO 1.026 (1.002-1.035); SQUAMOUS EPITHELIAL CELL UR AU 2 /HPF (0-6); UROBILINOGEN, URINE AUTO 0.2 mg/dL (0.0-2.0); WBC, URINE AUTO 64 /HPF (0-3)
[2025-02-10 20:49] LABS: PLATELET COUNT, AUTOMATED 240 10^3/uL (150-450)
[2025-02-10 21:11] LABS: ALT/SGPT < 9 U/L (7.0-40); AST/SGOT 13 U/L (<34); CALCIUM LEVEL 9.3 MG/DL (8.3-10.6); CARBON DIOXIDE LEVEL 28 MMOL/L (20-31); CHLORIDE LEVEL 107 MMOL/L (98-107); CREATININE FOR GFR 0.83 MG/DL (0.55-1.30); GLOMERULAR FILTRATION RATE 69.9 (>32); POTASSIUM SERUM 4.9 MMOL/L (3.5-5.1); SODIUM LEVEL 144 MMOL/L (136-145)
== END ==
LOC: SKLAB6 18:23
PROVIDERS: ATTEND Nurse Practitioner Adult Health
DX: N39.0 Urinary tract infection, site not specified (principal)

== ENCOUNTER → 2025-04-10 | Outpatient (REF) | payer MEDICARE, MEDICAID | LOC: SKLAB6 10:26 | PROVIDERS: ATTEND Family Medicine | DX: Z11.2 Encounter for screening for other bacterial diseases (principal); Z20.818 Contact with and (suspected) exposure to other bacterial communicable diseases ==